=== PATIENT | male | born 1950 | race Caucasian/White ===

== ENCOUNTER 2021-03-24 15:39 | Outpatient (CLI) | payer BC, OTHER | END 2021-03-24 23:59 | disposition home or self-care (01) | LOC: LAB.N 15:39 | PROVIDERS: ATTEND Family Medicine | DX: N41.9 Inflammatory disease of prostate, unspecified (principal) | CPT/HCPCS: 87086 ==

== ENCOUNTER 2021-05-02 08:52 | Inpatient (IN) | payer BC, OTHER, MEDICARE ==
[2021-05-02] MEDS ORDERED: LACTATED RINGERS 1,000 ML IV ONE (08:55)
[2021-05-02] MEDS ORDERED: fentaNYL 250 MCG/5 ML VIAL ONE (09:25)
[2021-05-02] MEDS ORDERED: MIDAZOLAM 2 MG/2 ML VIAL ONE ×3 (09:25→09:52)
[2021-05-02] MEDS ORDERED: LIDO GARGLE 30 ML BOTTLE ONE (09:34)
[2021-05-02] MEDS ORDERED: LIDO GARGLE 30 ML BOTTLE PO ONE (09:49)
[2021-05-02] MEDS ORDERED: BENZOCAINE/TETRACAINE/BUTAMBEN 20 GM TOP ONE (09:50)
[2021-05-02] MEDS ORDERED: PROPOFOL 200 MG/20 ML VIAL IVP ONE (09:53)
--- NOTE | 2021-05-02 10:02 | ANESTHESIA ---
Pre-Anesthesia VS, & Labs - Diagnosis high risk screening exam, history of GI bleed - Procedure colonoscopy and EGD Vital Signs: Temp Pulse Resp BP Pulse Ox 35.6 C L 72 14 134/89 H 99 05/02/21 08:58 05/02/21 08:58 05/02/21 08:58 05/02/21 08:58 05/02/21 08:58 Height: 5 ft 8 in Weight (kg): 87.9 kg Body Mass Index: 29.5 BMI Classification: Overweight - NPO >8 hours Home Medications and Allergies Home Medications: Ambulatory Orders Ciprofloxacin HCl [Cipro] 500 mg PO BID PRN 05/01/21 Tamsulosin HCl [Flomax] 0.4 mg PO DAILY 05/01/21 Ciprofloxacin HCl [Cipro] 500 mg PO BID PRN 05/01/21 Tamsulosin HCl [Flomax] 0.4 mg PO DAILY 05/01/21 Allergies/Adverse Reactions: Allergies Allergy/AdvReac Type Severity Reaction Status Date / Time No Known Drug Allergies Allergy Verified 05/01/21 13:30 Anes History & Medical History - Anesthetic History Anesthesia Complications: reports: No previous complications - Medical History Cardiovascular: reports: None Pulmonary: reports: None Gastrointestinal: reports: GI bleed Urinary: reports: Benign prostate hypertrophy, Kidney stones, Other Musculoskeletal: reports: Osteoarthritis Endocrine/Autoimmune: reports: None Skin: reports: None - Surgical History General: reports: Cholecystectomy Urologic: reports: Kidney stents Dermatologic: reports: Skin cancer surgery Exam General: Other (sedated) Plan Anesthesia Type: Total IV (rescue sedation. History obtained from chart.) Consent for Procedure(s) Verified and Reviewed: Yes Code Status: Attempt Resuscitation ASA classification: 2-Mild systemic disease Is this case an emergency?: No
[2021-05-02] MEDS ORDERED: LACTATED RINGERS 600 ML IV ONE (10:23)
[2021-05-02] MEDS ORDERED: SODIUM CHLORIDE FLUSH 0.9% 10 ML SYRINGE IVP PRN (11:30)
[2021-05-02] MEDS ORDERED: ONDANSETRON 4 MG/2 ML VIAL IVP PRN (11:30)
--- NOTE | 2021-05-02 11:45 | HISTORY & PHYSICAL EXAMINATION ---
History and Physical - History and Physical Subjective 70-year-old male presenting for colonoscopy and upper endoscopy for work-up of hematochezia. Notable change in bowel movements as well. Significant family history for colorectal cancer in his father. Findings during colonoscopy are as below: 1. Exceedingly poor prep that progressively worsened proximal to the obstructing descending colonic mass 2. Obstructing mass noted at the distal descending colon junction with the sigmoid. Extensive diverticulosis. This mass was circumferential and essentially obstructing. Traversed only after transition from moderate sedation to monitored anesthesia care and careful cautious navigation. The proximal colon was necessary cleared secondary to need for possible resection versus diversion. 3. Ileocecal valve achieved as evidenced by the appendiceal orifice and ICV; both photographed. 4. Cecum without cecitis. The entirety of the colon was without colitis. 5. Careful evaluation and ultimate withdrawal noted for the following: A. Exceedingly large circumferential bulky mass at the distal descending colonic junction with the sigmoid. This mass was multiply biopsied biopsy by cold forceps. Retrieved. This was clearly a malignancy which was clinically obstructing. Proximal bowel prep was poor. This area was approximately tattooed upstream from an area of extensive diverticulosis. Distal tattoo was appropriately beyond mass to assure oncologic margin. 6. Tortuous colon. 7. Rectum without proctitis. 8. Internal hemorrhoids nonbleeding Upper endoscopy was unremarkable. Secondary to obstruction the patient was admitted to the hospital for staging work-up, bowel rest, and hospitalist consultation. Please see preoperative history and physical for the endoscopic procedures. Patient notable for recent history of ureterolithiasis/nephrolithiasis on Flomax and Cipro. Objective Afebrile hemodynamically acceptable General Appearance: positive: No acute distress Eyes Bilateral: positive: Normal inspection ENT: positive: ENT inspection nml Neck: positive: Nml inspection Respiratory: positive: Chest non-tender, No respiratory distress, Breath sounds nml. negative: Wheezes, Rales, Rhonchi Cardiovascular: positive: Regular rate & rhythm Abdomen: positive: No distention, Other. negative: Guarding, Rebound Extremities: positive: Non-tender, Full ROM, Nml appearance Neurologic/Psychiatric: positive: Oriented x3, CN's nml (2-12) Impression/Plan 70-year-old male with obstructing colon mass distal descending at sigmoid junction. Pending staging work-up. Hospitalist consulted. Will need either diverting loop colostomy versus definitive resection pending evaluation for metastases. CBC, CMP, coagulation indices ordered, CEA. CT chest abdomen pelvis with p.o. and IV contrast also ordered. Discussed briefly with family current plan and will discuss at greater length following imaging and laboratory results. (1) GI - IVF, bowel rest. GI ppx. Opiate sparring analgesia. (2) SURGERY - Discuss surgical options once imaging complete and patient evaluated by hospital service. We will discuss the possibility of performing intervention here versus transfer. If there is evidence of metastatic disease the patient is candidate for diverting loop colostomy and placement of Mediport in anticipation of palliative chemotherapy. Absent metastases patient can undergo low anterior resection versus anterior resection laparoscopically for definitive intervention. (3) Renal/Lytes - Continue Flomax (4) Respiratory - O2 as necessary. Continue IS. (5) Heme - Will continue with DVT ppx. (6) Cardiovascular - HD acceptable. Awaiting hospitalist preoperative assessment and risk stratification.
[2021-05-02] MEDS ORDERED: IOVERSOL 320 50 ML VIAL ONE (11:46)
[2021-05-02 12:09] LABS: BASOPHILS % (AUTO) 0.6 %; EOSINOPHILS # (AUTO) 0.1 10^3/uL (0.0-0.7); EOSINOPHILS % (AUTO) 1.1 %; HGB - HEMOGLOBIN 12.6 g/dL (14.0-18.0); LYMPHOCYTES # (AUTO) 0.6 10^3/uL (1.5-3.5); LYMPHOCYTES % (AUTO) 10.5 %; MEAN CORPUSCULAR HEMOGLOBIN 30.1 pg (27.0-31.0); MEAN CORPUSCULAR HGB CONC 33.2 g/dL (32.0-36.0); MEAN CORPUSCULAR VOLUME 90.7 fL (80.0-94.0); MEAN PLATELET VOLUME 10.6 fL (7.4-11.4); MONOCYTES # (AUTO) 0.2 10^3/uL (0.0-1.0); MONOCYTES % (AUTO) 3.4 %; NEUTROPHILS # (AUTO) 4.5 10^3/uL (1.5-6.6); NEUTROPHILS % (AUTO) 83.8 %; PLT - PLATELET COUNT 132 10^3/uL (130-450); RED BLOOD COUNT 4.19 10^6/uL (4.70-6.10); RED CELL DISTRIBUTION WIDTH 12.6 % (12.0-15.0); WHITE BLOOD COUNT 5.3 x10^3/uL (4.8-10.8)
--- NOTE | 2021-05-02 12:13 | ANESTHESIA POST OP EVALUATION ---
Anesthesia Post Eval - Post Anesthesia Eval Vitals: Last Vital Signs Temp 36.4 C L 05/02/21 11:12 Pulse 78 05/02/21 11:43 Resp 20 05/02/21 11:43 BP 111/65 05/02/21 11:43 Pulse Ox 99 05/02/21 11:43 CV Function Including HR & BP: Stable Pain Control: Satisfactory Nausea & Vomiting: Negative Mental Status: Baseline Respiratory Status: Airway Patent Hydration Status: Satisfactory Anesthesia Complications: None
[2021-05-02 12:17] LABS: ALBUMIN 4.2 g/dL (3.2-5.5); ALBUMIN/GLOBULIN RATIO 1.6 (1.0-2.2); BILIRUBIN,TOTAL 0.9 mg/dL (0.2-1.0); CALCIUM 8.8 mg/dL (8.5-10.3); CREATININE 0.9 mg/dL (0.6-1.2); MAGNESIUM 2.1 mg/dL (1.7-2.8); PHOSPHORUS 3.5 mg/dL (2.5-4.6); POTASSIUM 4.1 mmol/L (3.5-5.0); TOTAL PROTEIN 6.8 g/dL (6.7-8.2)
[2021-05-02] MEDS ORDERED: IOVERSOL 320 100 ML VIAL IVP ONE ×2 (12:45→16:53)
[2021-05-02] MEDS: D5NS W/20 MEQ KCL 1,000 ML IV SCH ×2 (13:05→22:55)
[2021-05-02] MEDS: METOCLOPRAMIDE 10 MG/2 ML VIAL IVP SCH ×3 (13:05→23:53)
[2021-05-02] MEDS: TAMSULOSIN 0.4 MG CAPSULE PO SCH (13:52)
[2021-05-02] MEDS: methocarbamoL 500 MG TABLET PO SCH ×3 (13:52→23:54)
--- NOTE | 2021-05-02 14:07 | CT Report ---
PROCEDURE: CHEST W INDICATIONS: staging workup colonic obstructing mass CONTRAST: IV CONTRAST: Optiray 320 ml: 100 PO CONTRAST: Optiray 320 ml50 TECHNIQUE: After the administration of intravenous contrast, images were acquired from the pulmonary apices to t he posterior costophrenic angles. Multiplanar MIP reformats were acquired. For radiation dose reduc tion, the following was used: automated exposure control, adjustment of mA and/or kV according to pa tient size. COMPARISON: None. FINDINGS: Image quality: Excellent. Lungs and pleura: A 9 x 7 mm solid subpleural nodule is seen at the left lung base (238/3). A 4 mm in trafissural nodule is seen in the right minor fissure measuring 4 mm (194/3), most likely a benign ly mph node. No acute air space opacities. No pleural effusions or pneumothorax. Central and periphera l airways are patent and normal in caliber. Mediastinum: Heart size is normal. No pericardial effusion. Mild to moderate coronary artery ather osclerotic calcifications. No mediastinal or hilar adenopathy by size criteria. Thoracic aorta and c entral pulmonary arteries are normal in size. Esophagus is normal in caliber. No hiatal hernia. Bones and chest wall: No suspicious bony lesions. A densely sclerotic lesion in the posterior aspec t of the left seventh rib is consistent with benign bone island. Degenerative changes are seen at the sternoclavicular joints. No vertebral body compression fractures. No axillary or supraclavicular ad enopathy by size criteria. The thyroid is normal in size and there are no incidental findings.. Abdomen: There is mild splenomegaly. Status post cholecystectomy. A few colonic diverticula are seen . Visualized upper abdominal solid organs otherwise appear normal. Upper abdominal bowel loops are n ormal in caliber. IMPRESSION: 1. Nonspecific 9 x 7 mm subpleural nodule at the left lung base. A benign etiology is favored, but i solated metastatic disease cannot be excluded. Recommend continued attention on follow-up exams. 2. No significant lymphadenopathy in the chest. No suspicious osseous lesion. Reviewed by: Puma Austin MD on 05/02/2021 1:06 PM [facility] Approved by: Puma Austin MD on 05/02/2021 1:06 PM [facility] Station ID: [id number]
--- NOTE | 2021-05-02 14:08 | CT Report ---
PROCEDURE: Abdomen/Pelvis W INDICATIONS: staging workup obstructing colon mass CONTRAST: IV CONTRAST: Optiray 320 ml: 100 PO CONTRAST: Optiray 320 ml50 TECHNIQUE: After the administration of oral and intravenous contrast, 5 mm thick sections acquired from the diap hragms to the symphysis. 5 mm thick coronal and sagittal reformats were acquired. For radiation dos e reduction, the following was used: automated exposure control, adjustment of mA and/or kV accordin g to patient size. COMPARISON: None. FINDINGS: Image quality: Excellent. ABDOMEN: Lung bases: There is mild dependent atelectasis in the lung bases. A 9 x 7 mm subpleural nodule is no jimmy at the left lung base. Please see separate report from the CT chest performed on the same day for detailed review of intrathoracic findings. Heart size is normal. Solid organs: Liver is normal in size and enhancement. Gallbladder is surgically absent. Biliary s ystem is non dilated. Pancreas enhances normally. The spleen is mildly enlarged, measuring up to 14 .5 cm in maximum dimension. No adrenal nodules. Kidneys demonstrate normal size and enhancement, wit hout hydronephrosis. A nonobstructing 3 mm calculus is noted in the proximal right ureter. Tiny nono bstructing calculi are seen in the inferior pole of both kidneys. Peritoneum and bowel: Irregular thickening of the sigmoid colon is seen in the left lower quadrant wi th an ill-defined intramural masslike lesion measuring roughly 4.6 x 4.1 x 5.3 cm. Multiple diverticu la are seen in the colon without signs of acute diverticulitis. There are no signs of bowel obstructi on. No definite bowel perforation or invasion of adjacent structures is seen. There is trace thickeni ng or fluid along the left paracolic gutter, but no significant ascites or pneumoperitoneum. Nodes and vessels: No retroperitoneal or mesenteric adenopathy by size criteria. Aorta and inferior vena cava are normal in size. Mild to moderate atherosclerotic calcifications are seen in the aorta . Miscellaneous: Small fat-containing periumbilical hernia.. PELVIS: Genitourinary: Bladder wall thickness is normal. Miscellaneous: A right inguinal hernia contains fat, trace fluid, and a portion of the anterior bladd er. Bones: No suspicious bony lesions. No vertebral body compression fractures. IMPRESSION: 1. Masslike thickening of the sigmoid colon in the left quadrant is consistent with the known coloni c mass. Extensive colonic diverticulosis is present without signs of acute diverticulitis. 2. No significantly enlarged lymph nodes in the abdomen or pelvis. 3. Mild splenomegaly. 4. Nonspecific subpleural nodule in the left lung base. 5. Nonobstructing 3 mm calculus in the right proximal ureter without hydronephrosis. Additional tiny bilateral nonobstructing renal calculi are present. 6. Right inguinal hernia contains fat and a portion of the anterior bladder. Reviewed by: Puma Autsin MD on 05/02/2021 1:07 PM [facility] Approved by: Puma Austin MD on 05/02/2021 1:07 PM [facility] Station ID: [id number]
[2021-05-02] MEDS ORDERED: IOVERSOL 320 50 ML VIAL PO ONE (16:54)
--- NOTE | 2021-05-02 18:00 | CONSULTATION NOTE ---
Referring Provider Name of Referring Provider:: Roxie Consult Date: 05/02/21 Chief Complaint - Chief Complaint Chief Complaint: Preoperative evaluation History of Present Illness - Admitted From Admitted From:: Home - History Obtained From Records Reviewed: [employer] History obtained from: Patient and chart Exam Limitations: none - History of Present Illness HPI Comment/Other: Mr. Tavares presented today for colonoscopy and upper endoscopy for evaluation of hematochezia and changes to his bowel movements over the last 3 months. He was admitted for staging work of a colonic mass, bowel rest, parenteral nutrition, and hospitalist consult for preoperative risk assessment. He states his last colonoscopy was in 2006 and was normal. At baseline, he reports having one bowel movement every morning without straining or bleeding. Since February, he has been having 3-4x/day of hematochezia that he reports happens over the toilet during the passage of what he feels is gas. He describes passing "a shot-size glass full of what looks like ground Maraschino cherries" into the toilet. He notified his PCP provider about this and requested to schedule a colonoscopy in February, but due to COVID-related backlogs, was unable to schedule anything until Mona garcia (now). He denies any associated abdominal pain or pain of any kind, but states that he has been eating "less" and has unintentionally lost at least 10lbs in the last week. He does endorse a history of kidney stones and prostatitis, and in March saw his PCP after feeling symptoms of both of these coming on. He was subsequently started on Ciprofloxacin. He has a strainer at home and on 04/13/21 s tates he passed a 2mm stone. He has since been symptom-free aside from the hematochezia and weight loss. He denies fevers, chills, nausea, vomiting, fatigue, chest pain, dyspnea, or palpitations. Today we discussed HPI, medical history, questions/concerns, and preoperative risk assessment using the ACS NSQIP risk calculator. 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) MRSA Hx?: No - Past Surgical History General: reports: Cholecystectomy Ortho: reports: Arthroscopic surgery (right knee due to L&I, R menisectomy), Other (forearm fx as child) Derm: reports: Skin cancer surgery - Family & Social History Family History: Mother: (Mom age 78; dad age 69), COPD/Emphysema, Fat her: , Cancer (colorectal cancer, age 69), Brother: Diabetes, Type 2, Obesity Living arrangement: At home Living Situation: With spouse/s.o., With family (disabled son) Social History Notes: Full EMS worker - Substance History Use: Uses substance without health or social issues: Alcohol (once a month) Abuse: Recurrent use of substance despite neg consequences: NONE Dependence: Experiences withdrawal or developed tolerances: NONE Tobacco Details: Other (never smoked) - POLST Patient has POLST: No POLST Status: Full Code Meds/Allgy - Home Medications Home Medications: Ambulatory Orders Medication Instructions Recorded Confirmed Ciprofloxacin HCl [Cipro] 500 mg PO BID PRN 05/01/21 05/01/21 Tamsulosin HCl [Flomax] 0.4 mg PO DAILY 05/01/21 05/01/21 - Allergies Allergies/Adverse Reactions: Allergies Allergy/AdvReac Type Severity Reaction Status Date / Time No Known Drug Allergies Allergy Verified 05/01/21 13:30 Review of Systems - Constitutional Constitutional: reports: Poor appetite, Weight loss - Eyes Eyes: denies: Pain, Irritation, Amaurosis, Blurred vision - Ears, Nose & Throat Ears, Nose & Throat: reports: Ear pain (at times), Nasal obstruction, Nasal congestion, Postnasal drainage. denies: Tinnitus, Vertigo - Cardiovascular Cariovascular: denies: Irregular heart rate, Palpitations, Chest pain, Edema, Lightheadedness - Respiratory Respiratory: denies: Cough, Sputum production, Wheezing, Snoring - Gastrointestinal Gastrointestinal: reports: Change in bowel habits, Rectal bleeding, Poor appetite - Genitourinary Genitourinary: reports: Frequency (sometimes), Nocturia (sometimes). denies: Dysuria - Musculoskeletal Musculoskeletal: reports: Joint pain. denies: Muscle pain, Back pain, Muscle aches - Integumentary Integumentary: denies: Rash, Pruritis, Lesions, Dryness - Neurological Neurological: denies: General weakness, Focal weakness, Headache, Dizziness, Me quincy problems, Pre-existing deficit - Psychiatric Psychiatric: denies: Depression, Anxiety, Suicidal, Hallucinations - Endocrine Endocrine: denies: Polyuria, Polydypsia, Polyphagia - Hematologic/Lymphatic Hematologic/Lymphatic: denies: Anemia, Bruising, Petechiae Exam - Vital Signs Vital Signs: Vital Signs x48h Temp Pulse Resp BP Pulse Ox 05/02/21 16:28 88 16 131/84 H 97 05/02/21 15:28 36.5 C 82 16 126/66 95 05/02/21 14:28 36.3 C L 86 18 124/70 97 05/02/21 13:15 36.5 C 72 20 141/73 H 96 05/02/21 13:00 73 18 128/80 100 05/02/21 12:44 36.4 C L 64 18 128/74 98 05/02/21 12:29 36.4 C L 74 20 137/73 H 99 05/02/21 11:43 78 20 111/65 99 05/02/21 11:30 76 16 108/69 100 05/02/21 11:12 36.4 C L 75 12 107/73 99 05/02/21 11:01 72 18 97/56 L 100 05/02/21 10:52 73 18 113/65 98 05/02/21 10:46 73 14 109/64 99 05/02/21 10:41 36.8 C 66 12 103/64 96 05/02/21 10:36 67 12 101/59 L 96 05/02/21 10:31 67 12 93/57 L 96 05/02/21 10:26 70 12 93/56 L 96 05/02/21 10:23 36.8 C 69 16 100/52 L 96 - Physical Exam General Appearance: positive: No acute distress, Alert Eyes Bilateral: positive: Normal inspection, PERRL ENT: positive: ENT inspection nml, Pharynx nml, No signs of dehydration Neck: positive: Nml inspection, Thyroid nml, No JVD, Trachea midline Respiratory: positive: Chest non-tender, No respiratory distress, Breath sounds nml Cardiovascular: positive: Regular rate & rhythm, No murmur, No gallop Peripheral Pulses: positive: 2+ Abdomen: positive: Non-tender, No organomegaly, Nml bowel sounds Back: positive: Nml inspection Skin: positive: Color nml, No rash, Warm, Dry Extremities: positive: Non-tender, Full ROM, Nml appearance Neurologic/Psychiatric: positive: Oriented x3, Mood/affect nml Conclusion/Plan - Diagnosis Diagnosis: colon neoplasm, uncertain behavior, with a preoperative evaluation - Plan Plan: Mr. Tavares has a NSQIP preoperative assessment with a calculated risk score of 10.9% risk of serious complications and 14.5% risk of any complications. These are below average risks. For anesthesia, the patient does not have HTN, diabetes, COPD, valvular heart disease, or history of MO. We will continue to follow for any medical problems that erupt. Management of this general admission is by surgery, and we do not have any risk-modifying treatment to add at this time. - Lab Results Lab results reviewed: Yes Fish Bones: 05/02/21 11:47 05/02/21 11:47 - Diagnostic Imaging Results Diagnostic Imaging Results: positive: Final report reviewed - EKG Results EKG Interpreted Independently: No EKG Comparison: Other (tele with NSR)
[2021-05-02] MEDS: SODIUM CHLORIDE FLUSH 0.9% 10 ML SYRINGE IVP SCH ×2 (18:14→23:54)
[2021-05-03 05:00] LABS: BASOPHILS % (AUTO) 0.6 %; EOSINOPHILS # (AUTO) 0.1 10^3/uL (0.0-0.7); EOSINOPHILS % (AUTO) 3.2 %; HCT - HEMATOCRIT 35.7 % (42.0-52.0); HGB - HEMOGLOBIN 11.6 g/dL (14.0-18.0); LYMPHOCYTES # (AUTO) 0.8 10^3/uL (1.5-3.5); LYMPHOCYTES % (AUTO) 24.9 %; MEAN CORPUSCULAR HEMOGLOBIN 30.1 pg (27.0-31.0); MEAN CORPUSCULAR HGB CONC 32.5 g/dL (32.0-36.0); MEAN CORPUSCULAR VOLUME 92.7 fL (80.0-94.0); MEAN PLATELET VOLUME 10.5 fL (7.4-11.4); MONOCYTES # (AUTO) 0.2 10^3/uL (0.0-1.0); MONOCYTES % (AUTO) 6.9 %; NEUTROPHILS % (AUTO) 64.1 %; PLT - PLATELET COUNT 113 10^3/uL (130-450); RED BLOOD COUNT 3.85 10^6/uL (4.70-6.10); RED CELL DISTRIBUTION WIDTH 12.9 % (12.0-15.0); WHITE BLOOD COUNT 3.2 x10^3/uL (4.8-10.8)
[2021-05-03 05:13] LABS: ALBUMIN 3.5 g/dL (3.2-5.5); ALBUMIN/GLOBULIN RATIO 1.5 (1.0-2.2); CALCIUM 8.2 mg/dL (8.5-10.3); CREATININE 0.8 mg/dL (0.6-1.2); MAGNESIUM 2.2 mg/dL (1.7-2.8); PHOSPHORUS 3.3 mg/dL (2.5-4.6); TOTAL PROTEIN 5.8 g/dL (6.7-8.2)
[2021-05-03] MEDS: methocarbamoL 500 MG TABLET PO SCH ×4 (06:47→23:40)
[2021-05-03] MEDS: METOCLOPRAMIDE 10 MG/2 ML VIAL IVP SCH ×4 (07:42→23:40)
[2021-05-03] MEDS: PANTOPRAZOLE 40 MG VIAL IVP SCH (07:43)
[2021-05-03] MEDS: D5NS W/20 MEQ KCL 1,000 ML IV SCH ×3 (08:51→18:00)
[2021-05-03] MEDS: ENOXAPARIN 40 MG/0.4 ML SYRINGE SUBQ SCH (08:53)
[2021-05-03] MEDS: SODIUM CHLORIDE FLUSH 0.9% 10 ML SYRINGE IVP SCH ×3 (08:54→23:35)
[2021-05-03] MEDS: TAMSULOSIN 0.4 MG CAPSULE PO SCH (08:54)
--- NOTE | 2021-05-03 09:16 | PHARMACY PROGRESS NOTE ---
- Best Possible Medication History Admit Date and Time: 05/02/21 1130 Processed by: Nursing Medication History completed: Yes Patient Interview: Completed (MED REC COMPLETED BY NURSING) As the person ultimately responsible for medication therapy, providers are able to order a medication from an existing home medication list in [facility] via the "Reconcile Routine" prior to Confirmation of that medication by medical support specialist. Such practice is discouraged except when the physician, in their clinical judgment, deems that a medical need exists for a medication without regard to previous use.
[2021-05-04] MEDS: D5NS W/20 MEQ KCL 1,000 ML IV SCH ×3 (03:08→20:20)
[2021-05-04 05:37] LABS: BASOPHILS % (AUTO) 0.7 %; HCT - HEMATOCRIT 37.5 % (42.0-52.0); HGB - HEMOGLOBIN 12.1 g/dL (14.0-18.0); LYMPHOCYTES % (AUTO) 29.6 %; MEAN CORPUSCULAR HEMOGLOBIN 29.8 pg (27.0-31.0); MEAN CORPUSCULAR HGB CONC 32.3 g/dL (32.0-36.0); MEAN CORPUSCULAR VOLUME 92.4 fL (80.0-94.0); MEAN PLATELET VOLUME 10.9 fL (7.4-11.4); MONOCYTES % (AUTO) 7.3 %; PLT - PLATELET COUNT 119 10^3/uL (130-450); RED BLOOD COUNT 4.06 10^6/uL (4.70-6.10); RED CELL DISTRIBUTION WIDTH 12.8 % (12.0-15.0); WHITE BLOOD COUNT 2.7 x10^3/uL (4.8-10.8)
[2021-05-04 05:41] LABS: ABNORMAL LYMPHS % (MANUAL) 0 %
[2021-05-04 05:44] LABS: ALBUMIN 3.6 g/dL (3.2-5.5); ALBUMIN/GLOBULIN RATIO 1.4 (1.0-2.2); BILIRUBIN,TOTAL 0.8 mg/dL (0.2-1.0); CALCIUM 8.4 mg/dL (8.5-10.3); CREATININE 0.8 mg/dL (0.6-1.2); MAGNESIUM 2.1 mg/dL (1.7-2.8); PHOSPHORUS 2.8 mg/dL (2.5-4.6); POTASSIUM 3.7 mmol/L (3.5-5.0); TOTAL PROTEIN 6.1 g/dL (6.7-8.2)
[2021-05-04 06:03] LABS: BAND NEUTROPHILS % (MANUAL) 4 %; DIFFERENTIAL COMMENT MANUAL DIFFERENTIAL; EOSINOPHILS # (MANUAL) 0.2 10^3/uL (0-0.7); LYMPHOCYTES # (MANUAL) 0.7 10^3/uL (1.5-3.5); LYMPHOCYTES % (MANUAL) 25 %; MONOCYTES # (MANUAL) 0.1 10^3/uL (0.0-1.0); NEUTROPHILS # (MANUAL) 1.7 10^3/uL (1.5-6.6); PLATELET ESTIMATE, MANUAL DECREASED (<130,000) (NORMAL); RBC MORPHOLOGY (MULTIPLE) NORMAL APPEARANCE (NORMAL)
[2021-05-04] MEDS: PANTOPRAZOLE 40 MG VIAL IVP SCH (06:22)
[2021-05-04] MEDS: METOCLOPRAMIDE 10 MG/2 ML VIAL IVP SCH ×3 (06:22→17:35)
[2021-05-04] MEDS: methocarbamoL 500 MG TABLET PO SCH ×3 (06:23→17:35)
[2021-05-04] MEDS: SODIUM CHLORIDE FLUSH 0.9% 10 ML SYRINGE IVP SCH ×2 (08:52→17:36)
[2021-05-04] MEDS: ENOXAPARIN 40 MG/0.4 ML SYRINGE SUBQ SCH (08:52)
[2021-05-04] MEDS: TAMSULOSIN 0.4 MG CAPSULE PO SCH (08:54)
--- NOTE | 2021-05-04 17:34 | XRAY Report ---
PROCEDURE: Chest for Line Placement INDICATIONS: new PICC @R basilic v, likely midline TECHNIQUE: One view of the chest was acquired. COMPARISON: None FINDINGS: Surgical changes and devices: Right-sided presumed PICC line is present. It is visualized to the medi al aspect of the axilla overlying the lateral right lung. Lungs and pleura: No pleural effusions or pneumothorax. Lungs are clear. Mediastinum: Mediastinal contours appear normal. Heart size is normal. Bones and chest wall: No suspicious bony lesions. Overlying soft tissues appear unremarkable. IMPRESSION: Presumed right-sided PICC line located as above. Recommend forward advancement of at least 12 cm.. Reviewed by: Virginia Moreno MD on 05/04/2021 5:33 PM PDT Approved by: Virginia Moreno MD on 05/04/2021 5:33 PM PDT Station ID: [id number]
--- NOTE | 2021-05-04 17:48 | ANESTHESIA PROCEDURE NOTE ---
Anesth Central Line Template - Central Line Central Line Preparation: Consent Obtained, Time out completed, Ultrasound used, Sterile prep and drape Central line location: Right Basilic Central line type: PICC Double Lumen Central line catheter tip site resides: Subclavian vein Central line aftercare: Secured, Placement confirmed, No pneumothorax, No complications (unable to advance past subclavian v despite multiple attempts) Other Info/Details: US used to access R basilic v. Wire threaded easily. Dilator with ease. Cath cut to 40cm per chart. Catheter threaded easily using tip tracker, but unable to advance past subclavian v. despite multiple attempts. Catheter appeared to be turning back on itself at 32cm. Catheter also stopped aspirated and flushing if advanced past 32. Cath retracted to 32cm (8cm exposed) and secured. Insertion site with oozing unresolved with pressure. New dressing applied and coban to slight pressure. MD Faustin notified of midline status.
[2021-05-05] MEDS: METOCLOPRAMIDE 10 MG/2 ML VIAL IVP SCH ×5 (00:30→18:32)
[2021-05-05] MEDS: SODIUM CHLORIDE FLUSH 0.9% 10 ML SYRINGE IVP SCH ×4 (00:30→18:31)
[2021-05-05] MEDS: methocarbamoL 500 MG TABLET PO SCH ×5 (00:30→18:34)
[2021-05-05] MEDS: D5NS W/20 MEQ KCL 1,000 ML IV SCH ×2 (04:04→18:19)
--- NOTE | 2021-05-05 05:13 | PROVIDER PROGRESS NOTE ---
Progress Note Subjective 70-year-old male hospital day #3 Status Post colonoscopy and upper endoscopy for work-up of hematochezia. Notable change in bowel movements as well. Significant family history for colorectal cancer in his father. Findings during colonoscopy are as below: 1. Exceedingly poor prep that progressively worsened proximal to the obstructing descending colonic mass 2. Obstructing mass noted at the distal descending colon junction with the sigmoid. Extensive diverticulosis. This mass was circumferential and essentially obstructing. Traversed only after transition from moderate sedation to monitored anesthesia care and careful cautious navigation. The proximal colon was necessary cleared secondary to need for possible resection versus diversion. 3. Ileocecal valve achieved as evidenced by the appendiceal orifice and ICV; both photographed. 4. Cecum without cecitis. The entirety of the colon was without colitis. 5. Careful evaluation and ultimate withdrawal noted for the following: A. Exceedingly large circumferential bulky mass at the distal descending colonic junction with the sigmoid. This mass was multiply biopsied biopsy by cold forceps. Retrieved. This was clearly a malignancy which was clinically obstructing. Proximal bowel prep was poor. This area was approximately tattooed upstream from an area of extensive diverticulosis. Distal tattoo was appropriately beyond mass to assure oncologic margin. 6. Tortuous colon. 7. Rectum without proctitis. 8. Internal hemorrhoids nonbleeding CT abdomen pelvis and CT chest without any evidence of metastatic disease. Pending PICC line. Hospitalist consult appreciated. Objective Afebrile hemodynamically acceptable General Appearance: positive: No acute distress Eyes Bilateral: positive: Normal inspection ENT: positive: ENT inspection nml Neck: positive: Nml inspection Respiratory: positive: Chest non-tender, No respiratory distress, Breath sounds nml. negative: Wheezes, Rales, Rhonchi Cardiovascular: positive: Regular rate & rhythm Abdomen: positive: No distention, Other. negative: Guarding, Rebound Extremities: positive: Non-tender, Full ROM, Nml appearance Neurologic/Psychiatric: positive: Oriented x3, CN's nml (2-12) Impression/Plan 70-year-old male with obstructing colon cancer left, tattooed. No evidence of extracolonic metastases by CT chest abdomen pelvis. Unable to tolerate oral intake. Seen by hospitalist. Pending PICC line for TPN. Advised absent metastases patient candidate for low anterior resection. Possibility for temporary diverting stoma. (1) GI - IVF, bowel regimen, bowel rest; NPO p midnight. GI ppx. Opiate sparring analgesia. (2) SURGERY: 1. Diagnostic laparoscopy 2. Laparoscopic adhesiolysis 3. Laparoscopic low anterior resection 4. Laparoscopic splenic flexure mobilization 5. Rigid proctoscopy 6. Possible Laparoscopic loop ileostomy 7. Tap block per anesthesia 8. Drain placement 9. Primary umbilical hernia repair (3) Renal/Lytes - continue IVF. Renal indices within normal limits. (4) Respiratory - O2 as necessary. Continue IS. (5) Heme - Will continue with DVT ppx. H/H stable. (6) Cardiovascular - HD acceptable. (7) Neuro - Opiate sparring analgesia. Antispasmodics with Robaxin. Neuropathic agents. (8) Immune/Infectious Disease - Perioperative antibiotics. Appreciate hospitalist consult. Please note that voice recognition software was used to transcribe this note and inadvertent errors might persist in spite of review and editing. I am obliged to you for your attention. I am thankful to you for allowing me to participate with you in this care of this patient.
[2021-05-05] MEDS: PANTOPRAZOLE 40 MG VIAL IVP SCH (06:39)
[2021-05-05 07:08] LABS: BASOPHILS % (AUTO) 0.8 %; HCT - HEMATOCRIT 35.6 % (42.0-52.0); HGB - HEMOGLOBIN 11.5 g/dL (14.0-18.0); MEAN CORPUSCULAR HEMOGLOBIN 29.7 pg (27.0-31.0); MEAN CORPUSCULAR HGB CONC 32.3 g/dL (32.0-36.0); MEAN PLATELET VOLUME 10.4 fL (7.4-11.4); MONOCYTES % (AUTO) 5.3 %; NEUTROPHILS % (AUTO) 64.5 %; PLT - PLATELET COUNT 117 10^3/uL (130-450); RED BLOOD COUNT 3.87 10^6/uL (4.70-6.10); RED CELL DISTRIBUTION WIDTH 12.8 % (12.0-15.0); WHITE BLOOD COUNT 2.7 x10^3/uL (4.8-10.8)
[2021-05-05 07:11] LABS: ABNORMAL LYMPHS % (MANUAL) 0 %
[2021-05-05 07:16] LABS: ALBUMIN 3.7 g/dL (3.2-5.5); ALBUMIN/GLOBULIN RATIO 1.8 (1.0-2.2); BILIRUBIN,TOTAL 0.6 mg/dL (0.2-1.0); CALCIUM 8.7 mg/dL (8.5-10.3); CREATININE 0.8 mg/dL (0.6-1.2); MAGNESIUM 1.8 mg/dL (1.7-2.8); POTASSIUM 3.9 mmol/L (3.5-5.0); TOTAL PROTEIN 5.8 g/dL (6.7-8.2)
[2021-05-05 07:47] LABS: BAND NEUTROPHILS % (MANUAL) 1 %; EOSINOPHILS # (MANUAL) 0.1 10^3/uL (0-0.7); LYMPHOCYTES # (MANUAL) 0.9 10^3/uL (1.5-3.5); LYMPHOCYTES % (MANUAL) 32 %; MONOCYTES # (MANUAL) 0.1 10^3/uL (0.0-1.0); NEUTROPHILS # (MANUAL) 1.6 10^3/uL (1.5-6.6)
[2021-05-05 07:49] LABS: DIFFERENTIAL COMMENT MANUAL DIFFERENTIAL; PLATELET ESTIMATE, MANUAL DECREASED (<130,000) (NORMAL); PLATELET MORPHOLOGY NORMAL APPEARANCE (NORMAL); RBC MORPHOLOGY (MULTIPLE) NORMAL APPEARANCE (NORMAL); WBC MORPHOLOGY (MULTIPLE) NORMAL APPEARANCE (NORMAL)
[2021-05-05] MEDS: TAMSULOSIN 0.4 MG CAPSULE PO SCH (08:04)
--- NOTE | 2021-05-05 11:47 | ANESTHESIA ---
Pre-Anesthesia VS, & Labs - Diagnosis Diagnosis colon neoplasm, uncertain behavior, with a preoperative evaluation - Procedure Low Anterior Colon Resection Vital Signs: Temp Pulse Resp BP Pulse Ox 36.7 C 56 L 16 133/78 H 96 05/05/21 07:16 05/05/21 07:16 05/05/21 07:16 05/05/21 07:16 05/05/21 07:16 Height: 5 ft 8 in Weight (kg): 87.9 kg Body Mass Index: 29.5 BMI Classification: Overweight - NPO >8 hours - Lab Results Current Lab Results: Laboratory Tests 05/05/21 06:45: Sodium 141, Potassium 3.9, Chloride 109, Carbon Dioxide 25, Anion Gap 7.0, BUN 5 L, Creatinine 0.8, Estimated GFR (MDRD) 95, Glucose 109 H, Calcium 8.7, Phosphorus 3.0, Magnesium 1.8, Total Bilirubin 0.6, AST 18, ALT 15, Alkaline Phosphatase 53, Total Protein 5.8 L, Albumin 3.7, Globulin 2.1, Albumin/Globulin Ratio 1.8 05/05/21 06:45: WBC 2.7 L, RBC 3.87 L, Hgb 11.5 L, Hct 35.6 L, MCV 92.0, MCH 29.7, MCHC 32.3, RDW 12.8, Plt Count 117 L, MPV 10.4, Neut # (Auto) Not Reportable, Lymph # (Auto) Not Reportable, Gilchrist # (Auto) Not Reportable, Eos # (Auto) Not Reportable, Baso # (Auto) Not Reportable, Absolute Nucleated RBC Not Reportable, Total Counted 100, Band Neuts % (Manual) 1, Abnorm Lymph % (Manual) 0, Nucleated RBC % Not Reportable, Neutrophils # (Manual) 1.6, Lymphocytes # (Manual) 0.9 L, Monocytes # (Manual) 0.1, Eosinophils # (Manual) 0.1, Basophils # (Manual) 0.0, Differential Comment MANUAL DIFFERENTIAL, WBC Morphology NORMAL APPEARANCE, Platelet Estimate DECREASED (<130,000), Platelet Morphology NORMAL APPEARANCE, RBC Morph Micro Appear NORMAL APPEARANCE 05/04/21 04:55: Sodium 139, Potassium 3.7, Chloride 106, Carbon Dioxide 25, Anion Gap 8.0, BUN 6, Creatinine 0.8, Estimated GFR (MDRD) 95, Glucose 114 H, Calcium 8.4 L, Phosphorus 2.8, Magnesium 2.1, Total Bilirubin 0.8, AST 14, ALT 14, Alkaline Phosphatase 54, Total Protein 6.1 L, Albumin 3.6, Globulin 2.5, Albumin/Globulin Ratio 1.4 05/04/21 04:55: WBC 2.7 L, RBC 4.06 L, Hgb 12.1 L, Hct 37.5 L, MCV 92.4, MCH 29.8, MCHC 32.3, RDW 12.8, Plt Count 119 L, MPV 10.9, Neut # (Auto) Not Reportable, Lymph # (Auto) Not Reportable, Gilchrist # (Auto) Not Reportable, Eos # (Auto) Not Reportable, Baso # (Auto) Not Reportable, Absolute Nucleated RBC Not Reportable, Total Counted 100, Band Neuts % (Manual) 4, Abnorm Lymph % (Manual) 0, Nucleated RBC % Not Reportable, Neutrophils # (Manual) 1.7, Lymphocytes # (Manual) 0.7 L, Monocytes # (Manual) 0.1, Eosinophils # (Manual) 0.2, Basophils # (Manual) 0.0, Differential Comment MANUAL DIFFERENTIAL, Platelet Estimate DECREASED (<130,000), RBC Morph Micro Appear NORMAL APPEARANCE 05/03/21 04:40: Sodium 138, Potassium 4.0, Chloride 104, Carbon Dioxide 27, Anion Gap 7.0, BUN 10, Creatinine 0.8, Estimated GFR (MDRD) 95, Glucose 133 H, Calcium 8.2 L, Phosphorus 3.3, Magnesium 2.2, Total Bilirubin 1.0, AST 14, ALT 14, Alkaline Phosphatase 58, Total Protein 5.8 L, Albumin 3.5, Globulin 2.3, Albumin/Globulin Ratio 1.5 05/03/21 04:40: WBC 3.2 L, RBC 3.85 L, Hgb 11.6 L, Hct 35.7 L, MCV 92.7, MCH 30.1, MCHC 32.5, RDW 12.9, Plt Count 113 L, MPV 10.5, Neut # (Auto) 2.0, Lymph # (Auto) 0.8 L, Gilchrist # (Auto) 0.2, Eos # (Auto) 0.1, Baso # (Auto) 0.0, Absolute Nucleated RBC 0.00, Nucleated RBC % 0.0 05/02/21 11:47: Carcinoembryonic Ag 1.5 05/02/21 11:47: Sodium 137, Potassium 4.1, Chloride 101, Carbon Dioxide 27, Anion Gap 9.0, BUN 15, Creatinine 0.9, Estimated GFR (MDRD) 83 L, Glucose 126 H, Calcium 8.8, Total Bilirubin 0.9, AST 19, ALT 17, Alkaline Phosphatase 66, Total Protein 6.8, Albumin 4.2, Globulin 2.6, Albumin/Globulin Ratio 1.6 05/02/21 11:47: APTT 27.8 05/02/21 11:47: INR (Fingerstick) 1.1 05/02/21 11:47: WBC 5.3, RBC 4.19 L, Hgb 12.6 L, Hct 38.0 L, MCV 90.7, MCH 30.1, MCHC 33.2, RDW 12.6, Plt Count 132, MPV 10.6, Neut # (Auto) 4.5, Lymph # (Auto) 0.6 L, Gilchrist # (Auto) 0.2, Eos # (Auto) 0.1, Baso # (Auto) 0.0, Absolute Nuc leated RBC 0.00, Nucleated RBC % 0.0 05/02/21 11:47: Phosphorus 3.5, Magnesium 2.1 Lab results reviewed: Yes Fish Bones: 05/05/21 06:45 05/05/21 06:45 Home Medications and Allergies Home Medications: Ambulatory Orders Ciprofloxacin HCl [Cipro] 500 mg PO BID PRN 05/01/21 Tamsulosin HCl [Flomax] 0.4 mg PO DAILY 05/01/21 Active Medications Hydromorphone HCl (Hydromorphone 0.5 Mg/0.5 Ml Syringe) 0.5 mg IVP Q2H PRN PRN Reason: Pain 8 to 10 Potassium Chloride/Dextrose/Sod Cl (D5ns W/20 Meq Kcl) 1,000 mls @ 125 mls/hr IV .Q8H [facility] Last Admin: 05/05/21 04:04 Dose: 125 mls/hr Documented by: Methocarbamol (Methocarbamol 500 Mg Tablet) 500 mg PO Q6HR [facility] Last Admin: 05/05/21 06:39 Dose: 500 mg Documented by: Metoclopramide HCl (Metoclopramide 10 Mg/2 Ml Vial) 5 mg IVP Q6HR [facility] Last Admin: 05/05/21 06:39 Dose: 5 mg Documented by: Ondansetron HCl (Ondansetron 4 Mg/2 Ml Vial) 4 mg IVP Q6HR PRN PRN Reason: Nausea / Vomiting Pantoprazole Sodium (Pantoprazole 40 Mg Vial) 40 mg IVP QDAC [facility] Last Admin: 05/05/21 06:39 Dose: 40 mg Documented by: Sodium Chloride (Sodium Chloride Flush 0.9% 10 Ml Syringe) 10 ml IVP 0100,0900,1700 [facility] Last Admin: 05/05/21 08:07 Dose: 10 ml Documented by: Sodium Chloride (Sodium Chloride Flush 0.9% 10 Ml Syringe) 10 ml IVP PRN PRN PRN Reason: NEEDED PER PROVIDER ORDERS Last Admin: 05/05/21 06:40 Dose: 70 ml Documented by: Tamsulosin HCl (Tamsulosin 0.4 Mg Capsule) 0.4 mg PO DAILY [facility] Last Admin: 05/05/21 08:04 Dose: 0.4 mg Documented by: Ciprofloxacin HCl [Cipro] 500 mg PO BID PRN 05/01/21 Tamsulosin HCl [Flomax] 0.4 mg PO DAILY 05/01/21 Allergies/Adverse Reactions: Allergies Allergy/AdvReac Type Severity Reaction Status Date / Time No Known Drug Allergies Allergy Verified 05/01/21 13:30 Anes History & Medical History - Anesthetic History Anesthesia Complications: reports: No previous complications Family history of Anesthesia Complications: Denies Family history of Malignant Hyperthermia: Denies - Medical History Cardiovascular: reports: None Pulmonary: reports: None Gastrointestinal: reports: GI bleed, Diverticulitis (not itis but diverticulosis on scope [address] for stones), Cholelithiasis, Other (inguinal hernia) Urinary: reports: Benign prostate hypertrophy, Kidney stones Neuro: reports: None Musculoskeletal: reports: Osteoarthritis Endocrine/Autoimmune: reports: None Skin: reports: Other (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) - Surgical History General: reports: Cholecystectomy Urologic: reports: Kidney stents Orthopedic: reports: Arthroscopic surgery (right knee due to L&I, R menisectomy), Other (forearm fx as child) Dermatologic: reports: Skin cancer surgery Exam General: Alert, Oriented x3, Cooperative, No acute distress Dental: WNL Mouth Openin Fingerbreadth Neck Mobility: Normal Mallampati classification: I Respiratory: Lungs clear, Normal breath sounds, No respiratory distress, No accessory muscle use Cardiovascular: Regular rate, Normal S1, Normal S2, No murmurs Plan Anesthesia Type: General, Transverse Abdominis Plane (TAP) Block Regional Block: Per Surgeon's request for Post Op pain control Consent for Procedure(s) Verified and Reviewed: Yes Code Status: Attempt Resuscitation ASA classification: 2-Mild systemic disease Is this case an emergency?: No
[2021-05-05] MEDS ORDERED: LIDOCAINE-MPF 2% 5 ML VIAL ONE (12:06)
[2021-05-05] MEDS ORDERED: fentaNYL 100 MCG/2 ML VIAL ONE ×2 (12:06→13:34)
[2021-05-05] MEDS ORDERED: PROPOFOL 200 MG/20 ML VIAL IVP ONE (12:06)
[2021-05-05] MEDS ORDERED: ROCURONIUM 50 MG/5 ML VIAL ONE ×2 (12:06→13:32)
[2021-05-05] MEDS ORDERED: BUPIVACAINE 0.5% PF 30 ML VIAL ONE (12:26)
[2021-05-05] MEDS ORDERED: metroNIDAZOLE 500 MG/100 ML 500 MG/100 ML BAG ONE (13:09)
[2021-05-05] MEDS ORDERED: ACETAMINOPHEN 1,000 MG/100 ML 100 ML IV ONE (13:09)
[2021-05-05] MEDS ORDERED: CIPROFLOXACIN 400 MG/200 ML 400 MG/200 ML BAG IV ONE (13:10)
[2021-05-05] MEDS ORDERED: ePHEDrine 50 MG/ML VIAL IVP ONE (13:17)
[2021-05-05] MEDS ORDERED: DEXAMETHASONE 4 MG/ML VIAL ONE (13:17)
[2021-05-05] MEDS ORDERED: BUPIVACAINE 0.5% PF 30 ML VIAL INFIL ONE (13:19)
[2021-05-05] MEDS ORDERED: ROPIVACAINE 0.5% PF 20 ML AMPULE ONE ×2 (15:14→15:20)
[2021-05-05] MEDS ORDERED: ONDANSETRON 4 MG/2 ML VIAL ONE (15:15)
[2021-05-05] MEDS ORDERED: DEXAMETHASONE 10 MG/ML VIAL ONE (15:17)
[2021-05-05] MEDS ORDERED: SODIUM CHLORIDE 0.9% 10 ML VIAL IVP ONE (15:18)
[2021-05-05] MEDS ORDERED: SUGAMMADEX 200 MG/2 ML VIAL IVP ONE (15:25)
[2021-05-05] MEDS ORDERED: LACTATED RINGERS 700 ML IV ONE (16:09)
[2021-05-05] MEDS ORDERED: IPRATROPIUM 0.2 MG/ML NEB INH PRN (16:17)
[2021-05-05] MEDS ORDERED: SODIUM CHLORIDE FLUSH 0.9% 10 ML SYRINGE IVP PRN (16:17)
[2021-05-05] MEDS ORDERED: ALBUTEROL NEB 2.5 MG/3 ML INH PRN (16:17)
[2021-05-05] MEDS ORDERED: ONDANSETRON 4 MG/2 ML VIAL IVP PRN ×2 (16:20→16:33)
[2021-05-05] MEDS: HYDROmorphone 0.5 MG/0.5 ML SYRINGE IVP PRN ×2 (16:28→17:45)
--- NOTE | 2021-05-05 16:28 | OPERATIVE REPORT ---
Operative Report - General Admit Date: 05/02/21 Procedure Date: 05/05/21 Planned Procedure: 1. Diagnostic laparoscopy 2. Laparoscopic adhesiolysis 3. Laparoscopic low anterior resection 4. Laparoscopic splenic flexure mobilization 5. Other indicated procedures Pre-Op Diagnosis: Obstructing sigmoid colon cancer; no evidence of mets; Hx of mult Sx Procedure Performed: 1. Diagnostic laparoscopy 2. Laparoscopic adhesiolysis 3. Laparoscopic low anterior resection 4. Laparoscopic splenic flexure mobilization 5. Rigid proctosigmoidoscopy 6. Drain placement 7. Transversus abdominis plane block per anesthesia 8. Umbilical hernia repair Post Op Diagnosis: Same; no extracolonic mets grossly; viable anastomosis - Procedure Note Primary Surgeon: Roxie Secondary Surgeon: Tara Anesthesia Provider: Shaunna Anesthesia Technique: General ET tube, Local, Regional block Pathology: 1. Upper rectum rectosigmoid sigmoid and descending colon 2. Anastomotic donuts Estimated Blood Loss (mL): 100 Drain/Tube Type: Erich drain Indications: See EMR Findings: 1. Tattoo noted at the level of the mass and achieved 5 cm proximal margin. 2. Viable anastomosis after splenic flexure mobilization 3. No tension no torsion no complication. 4. No evidence of extracolonic metastases Complications: None - Other Other Information/Narrative: Procedure: 1. Diagnostic laparoscopy 2. Laparoscopic adhesiolysis 3. Laparoscopic low anterior resection 4. Laparoscopic splenic flexure mobilization 5. Rigid proctosigmoidoscopy 6. Drain placement 7. Transversus abdominis plane block per anesthesia 8. Umbilical hernia repair Findings: 1. Anterior abdominal adhesions midline and within the pelvis. 2. Tattoo noted at the level of the patient's obstructing mass within the sigmoid colon and resected with appropriate margins 3. No tension, viable, healthy anastomosis from the [descending colon] to the mid to upper rectum. Splenic flexure mobilization without complication 4. No extravasation noted at the level of the anastomosis. Saline margin performed. 5. Umbilical hernia status post repair. 6. No evidence of extracolonic metastases 7. Tattoo noted at the level of the mass and achieved 5 cm proximal margin. 8. Viable anastomosis after splenic flexure mobilization 9. No tension no torsion no complication. 10. No evidence of extracolonic metastases Obstructing colon cancer at the level of the sigmoid. No evidence of extracolonic metastases. We performed a double stapled anastomosis with a [31] EEA without any complication. Extraction site was Pfannenstiel incision. Please note height of the dissection (clearly the upper rectum was visualized given the splaying of taenia). Patient had extensive diverticulosis which was taken to account during creation of the anastomosis. DESCRIPTION OF PROCEDURE: OPERATIVE REPORT: The patient was taken to the operating room, placed supine on the operating table. Informed consent had been already confirmed. The patient was placed for bilateral lower extremity serial compression devices and patient was induced for general endotracheal anesthesia. The patient's legs were placed in Henry stirrups with both arms tucked and all pressure points padded and protected. The patient was already on an anti-skid foam maurisio, and was further secured with strap across chest for added security. Patient was performed for TAP block by anesthesia. Patient was dosed with perioperative antibiotics. A time out was called and agreed to by all in the room. Vasquez catheter was already in place. Please note Dr. Aníbal Pacheco was present for the entirety of this operative intervention without whose assistance we would not be able to perform this case given its complexity amongst others. The patient was thereafter prepped and draped in the usual sterile fashion for the abdominal portion of this case. Time out was performed and confirmed. Access and insufflation of the abdomen was achieved by open [place] technique, with camera port access located within the umbilicus. A Circumlinear incision was made at the level of the umbilicus. At this time an umbilical hernia was appreciated for which surgical repair was indicated. To afford appropriate access to the defect for the low anterior resection we proceeded to isolate the umbilical stalk from the surrounding subcutaneous fat. At this time the umbilical stalk was dissected free using Bovie electrocautery from the overlying skin without any associated buttonholing as a result. With this completed, and as listed elsewhere, any additional operative interventions proceeded if performed. We proceeded as follows with the remainder of the case. Once adequate insufflation was achieved, the abdomen was inspected and there was no evidence of trauma, stomach was decompressed after OGT placement, and other intraabdominal findings are as listed above: extensive intraabdominal adhesions of the omentum to anterior abdominal wall. Patient noted for multiple prior operative interventions. Thereafter, we opted to proceed with laparoscopic surgery. Trocar placement: 1. Umbilical Naranjo as listed above 2. Right lower quadrant 11 mm trocar to accommodate laparoscopic hand-held stapler 3. Suprapubic 5 mm port/trocar 4. Right upper quadrant 5 mm trocar Case began with adhesiolysis as follows: Trocars were sequentially placed towards affording appropriate abdominal access for laparoscopic and ultimately Laparoscopic adhesiolysis and enterolysis commences. This was performed in such a way as to maximize exposure and minimize abdominal trauma. We clearly visualized, after appropriate and lengthy laparoscopic adhesiolysis, each trocar placement. Thereafter once appropriate and safe exposure was achieved without any inadvertent injuries or other complicating factors, we proceeded to continue with adhesiolysis to address the patient's extensive intra-abdominal adhesions using sharp Lap dissection, diligent electrocautery, and appropriate countertraction. Please note for multiple reasons as listed above under brief procedural findings, this patient was best suited to minimal access adhesiolysis towards avoiding open intervention, reducing the associated risks thereof, maximizing recovery, minimizing postoperative morbidity and associated stigmata, and enhancing the patient's convalescence towards assuring safe and expeditious ushering into the next step of therapeutic intervention which was crucial given presenting sepsis. This proceeded without any untoward complications, and without any inadvertent injuries or other adverse effect events. With adhesions lysed we proceeded with resection as follows. Along the rectosigmoid mesocolon, the medial peritoneum was incised using the cautery. This was carefully dissected down laterally. The ureter and gonadal vessels were noted and swept down away from colonic mesentery. With this accomplished, and both the ureter and gonadal vessels protected, the inferior mesenteric artery was encircled and divided using EndoGIA vascular staple load, with hemostasis achieved. We proceeded with splenic flexure mobilization taking the lateral peritoneal attachments all the way up affording adequate mobility along with the retroperitoneal attachments carefully minding the location of the ureter and associated structures. No inadvertent injuries or trauma resulted. Once adequate mobility was achieved we proceeded as follows. Once this was completed, we proceeded to continue mobilization of distal rectosigmoid and rectum. The avascular plane between the mesorectum and the presacral space was thereafter entered. This dissection was continued down through to the level of the upper rectum. This was all performed using Ligasure, cautery and countertraction. In addition, the lateral peritoneal reflections of rectum were also divided and ultimately anterior peritoneal reflection of the rectum was divided as well. The mesorectum was then continuously mobilized using Bovie electrocautery. Care was taken not to enter the presacral venous plexus. Again the left ureter was identified and protected throughout. Please see above findings for the height of the dissection (clearly the upper rectum was visualized given the splaying of taenia) and the specific margins performed during this dissection. Please note the patient had multiple tattoo sites from the patient's recent colonoscopy. The most distal was at the level of the malignancy. Proximal appeared at the level of the splenic flexure and represented an area of grossly diverticular free colon. The latter was meant to assist with surgical planning if able to optimize the anastomosis. Obviously the former was a tattoo marked towards assuring we had appropriate mo bilization for an oncologic resection. This was achieved upon explanting the specimen. Once this was completed with adequate distal margin assured in an appropriately mobilized rectum, the mesorectum was then divided using Ligasure vessel sealing device. With mesorectum divided, and hemostatic, the rectum was appropriately cleared and using Endo-stapling device, the upper rectum was thereafter stapled and divided; again ureters were noted and protected throughout. With the sigmoid colon mobilized and rectum divided, we planned to exteriorize the resection specimen through a GelPort site. This was a Pfannenstiel incision. A transverse incision was made suprapubic. This was taken down through skin and subcutaneous tissue with Bovie electrocautery. The fascia was encountered and traversed by Bovie electrocautery longitudinally. Fascial flaps were created this from the underlying rectus. The rectus was divided vertically. Peritoneum was entered without any complication. With this completed, we exteriorized the specimen, chose an area of viable colon proximal to diseased segment, assuring that the proximal resection margin was at least 5 cm from the area of malignancy. Please note we completely mobilized the splenic flexure laparoscopically with the patient in reverse Trendelenburg position. We then divided the mesentery using the energy device and 2-0 ligatures in the clamp/clamp/cut fashion. We placed a pursestring with 2-0 Prolene and thereafter, the 31 EEA anvil was placed into the lumen. With this completed, anvil was replaced into the abdomen, and proceeded to perform the end to end anastomosis after resufflation by closing the Jerrell wound ring. Additional mobilization was performed of the peritoneal reflection which allowed, after dividing the peritoneum surrounding rectum, additional distal mobility without any concern for tension. Please note that on placing the anvil great care was taken to avoid any diverticula at the level of the anastomosis and this was inspected carefully and diligently. We confirmed no tension at the level of the planned coloproctostomy. The EEA stapler was placed through rectum and once appropriately positioned, the spike thereafter was engaged through the staple line of the rectal stump under direct laparoscopic guidance. This was then mated with the trocar of the anvil and once adequately engaged and the colon checked for orientation without evidence of twist, torsion or tension, the EEA was closed and adequate tension was achieved, it was fired without any complication. Again, ureters, both left and right, were identified and protected throughout the entirety of this case. With the EEA fired, donuts were harvested and both were complete and thereafter we performed insufflation test using rigid proctosigmoidoscope under saline immersion without evidence of bubbles or air leak noted laparoscopically. Please note the anastomosis was created by reseparating the abdomen using the GelPort access device who is wound ring was placed in the Pfannenstiel incision. We laparoscopically placed a Erich drain through the suprapubic port near the anastomosis. Please note that glove change was performed after performing the colon resection and insertion of the anvil. Please note that the Pfannenstiel incision was closed in layers as per routine. The peritoneum was closed in a running fashion. Interrupteds were used to reapproximate the rectus muscle. Please note the fascia was closed traverse Drew with a loop PDS suture. Skin was approximated with jerman. The right lower quadrant trocar site was closed with a Kali-Umer suture passer under direct laparoscopic vision. Please note prior to closing the umbilical port final laparoscopic visualization was performed to assure appropriate placement of the drain and placement of the omentum into the pelvis. Please note there was no gross metastatic disease within the liver and no omental caking. Please note the umbilical trocar was removed after deflating the abdomen. Several [id number]'s were used to close the umbilical defect. We proceeded thereafter to perform umbilicoplasty having already extensively irrigated the operative wound with sterile saline. With this complete we closed the skin as follows: skin jerman. All counts for sponges, needles, and instruments were correct at the conclusion of this operative case. All incisions were injected with a with local for rose mary- and postoperative analgesia. The wounds were dressed with Telfa and Tegaderm. Patient was taken extubated to the PACU in stable condition once ureteral stents were removed. I was present for the entirety of this operative intervention. Please note that voice recognition software was used to transcribe this note and inadvertent errors might persist in spite of review and editing. I am obliged to you for your attention. I am thankful to you for allowing me to participate with you in this care of this patient.
[2021-05-05] MEDS ORDERED: HYDROmorphone 0.5 MG/0.5 ML SYRINGE IVP PRN (16:33)
[2021-05-05] MEDS ORDERED: ATROPINE ABBOJECT 1 MG/10 ML SYRINGE IVP PRN (16:33)
[2021-05-05] MEDS ORDERED: fentaNYL 100 MCG/2 ML VIAL IVP PRN (16:33)
[2021-05-05] MEDS ORDERED: NALOXONE 0.4 MG/ML VIAL IVP PRN (16:33)
[2021-05-05] MEDS ORDERED: MORPHINE 2 MG/ML CARPUJECT IVP PRN (16:33)
[2021-05-05] MEDS ORDERED: METOCLOPRAMIDE 10 MG/2 ML VIAL IVP PRN (16:33)
[2021-05-05] MEDS ORDERED: ePHEDrine 50 MG/ML VIAL IVP PRN (16:33)
[2021-05-05] MEDS ORDERED: LACTATED RINGERS 1,000 ML IV SCH (17:00)
[2021-05-05] MEDS ORDERED: D5NS W/20 MEQ KCL 1,000 ML IV SCH (17:00)
[2021-05-05] MEDS: CIPROFLOXACIN 400 MG/200 ML 400 MG/200 ML BAG IV SCH (17:50)
[2021-05-05] MEDS: oxyCODONE 5 MG TABLET PO PRN ×2 (18:38→22:37)
--- NOTE | 2021-05-05 19:54 | PROVIDER PROGRESS NOTE ---
Progress Note BRIEF Operative Report - General Admit Date: 05/02/21 Procedure Date: 05/05/21 Planned Procedure: 1. Diagnostic laparoscopy 2. Laparoscopic adhesiolysis 3. Laparoscopic low anterior resection 4. Laparoscopic splenic flexure mobilization 5. Other indicated procedures Pre-Op Diagnosis: Obstructing sigmoid colon cancer; no evidence of mets; Hx of mult Sx Procedure Performed: 1. Diagnostic laparoscopy 2. Laparoscopic adhesiolysis 3. Laparoscopic low anterior resection 4. Laparoscopic splenic flexure mobilization 5. Rigid proctosigmoidoscopy 6. Drain placement 7. Transversus abdominis plane block per anesthesia 8. Umbilical hernia repair Post Op Diagnosis: Same; no extracolonic mets grossly; viable anastomosis - Procedure Note Primary Surgeon: Roxie Secondary Surgeon: Tara Anesthesia Provider: Shaunna Anesthesia Technique: General ET tube, Local, Regional block Pathology: 1. Upper rectum rectosigmoid sigmoid and descending colon 2. Anastomotic donuts Estimated Blood Loss (mL): 100 Drain/Tube Type: Erich drain Indications: See EMR Findings: 1. Tattoo noted at the level of the mass and achieved 5 cm proximal margin. 2. Viable anastomosis after splenic flexure mobilization 3. No tension no torsion no complication. 4. No evidence of extracolonic metastases Complications: None
[2021-05-05] MEDS: metroNIDAZOLE 500 MG/100 ML 500 MG/100 ML BAG IV SCH (20:09)
[2021-05-05] MEDS: DOCUSATE SODIUM 100 MG CAPSULE PO SCH (21:33)
[2021-05-05] MEDS: polyethylene glycoL 3350 17 GM PACKET PO SCH (21:33)
[2021-05-06] MEDS: HYDROmorphone 0.5 MG/0.5 ML SYRINGE IVP PRN ×6 (00:01→18:54)
[2021-05-06] MEDS: methocarbamoL 500 MG TABLET PO SCH ×4 (00:01→17:41)
[2021-05-06] MEDS: METOCLOPRAMIDE 10 MG/2 ML VIAL IVP SCH ×4 (00:01→17:41)
[2021-05-06] MEDS: SODIUM CHLORIDE FLUSH 0.9% 10 ML SYRINGE IVP SCH ×3 (00:48→16:53)
[2021-05-06] MEDS: metroNIDAZOLE 500 MG/100 ML 500 MG/100 ML BAG IV SCH ×2 (00:48→08:44)
[2021-05-06] MEDS: oxyCODONE 5 MG TABLET PO PRN ×3 (02:17→20:02)
[2021-05-06] MEDS: LACTATED RINGERS 1,000 ML IV SCH ×2 (02:25→14:10)
[2021-05-06] MEDS: CIPROFLOXACIN 400 MG/200 ML 400 MG/200 ML BAG IV SCH (05:10)
[2021-05-06] MEDS: PANTOPRAZOLE 40 MG VIAL IVP SCH (06:04)
[2021-05-06 07:04] LABS: BASOPHILS % (AUTO) 0.1 %; EOSINOPHILS # (AUTO) 0.1 10^3/uL (0.0-0.7); EOSINOPHILS % (AUTO) 1.4 %; HCT - HEMATOCRIT 31.7 % (42.0-52.0); HGB - HEMOGLOBIN 10.2 g/dL (14.0-18.0); LYMPHOCYTES # (AUTO) 0.2 10^3/uL (1.5-3.5); LYMPHOCYTES % (AUTO) 3.2 %; MEAN CORPUSCULAR HEMOGLOBIN 29.5 pg (27.0-31.0); MEAN CORPUSCULAR HGB CONC 32.2 g/dL (32.0-36.0); MEAN CORPUSCULAR VOLUME 91.6 fL (80.0-94.0); MEAN PLATELET VOLUME 11.3 fL (7.4-11.4); MONOCYTES # (AUTO) 0.4 10^3/uL (0.0-1.0); MONOCYTES % (AUTO) 5.7 %; NEUTROPHILS # (AUTO) 6.2 10^3/uL (1.5-6.6); NEUTROPHILS % (AUTO) 89.5 %; PLT - PLATELET COUNT 125 10^3/uL (130-450); RED BLOOD COUNT 3.46 10^6/uL (4.70-6.10); RED CELL DISTRIBUTION WIDTH 12.8 % (12.0-15.0); WHITE BLOOD COUNT 6.9 x10^3/uL (4.8-10.8)
[2021-05-06 07:11] LABS: ALBUMIN 3.2 g/dL (3.2-5.5); ALBUMIN/GLOBULIN RATIO 1.5 (1.0-2.2); BILIRUBIN,TOTAL 0.8 mg/dL (0.2-1.0); CALCIUM 8.1 mg/dL (8.5-10.3); CREATININE 0.9 mg/dL (0.6-1.2); MAGNESIUM 1.5 mg/dL (1.7-2.8); SLIDE REVIEW? Indicated; TOTAL PROTEIN 5.4 g/dL (6.7-8.2)
[2021-05-06 08:00] LABS: RBC MORPHOLOGY (MULTIPLE) 2+ ANISOCYTOSIS (NORMAL)
[2021-05-06] MEDS: DOCUSATE SODIUM 100 MG CAPSULE PO SCH ×2 (08:39→20:02)
[2021-05-06] MEDS: polyethylene glycoL 3350 17 GM PACKET PO SCH ×2 (08:41→20:02)
[2021-05-06] MEDS: TAMSULOSIN 0.4 MG CAPSULE PO SCH (12:26)
[2021-05-06] MEDS: INSULIN REGULAR HUMAN 300 UNIT/3 ML VIAL SUBQ SCH ×2 (12:34→17:34)
--- NOTE | 2021-05-06 12:51 | PROVIDER PROGRESS NOTE ---
Subjective - Prog Note Date Prog Note Date: 05/06/21 - Subjective Subjective: denies nausea. feels full Objective - Vital Signs/Intake & Output Reviewed Vital Signs: Yes Vital Signs: Vital Signs x48h Temp Pulse Resp BP Pulse Ox 05/06/21 12:00 37.0 C 77 21 115/74 99 05/06/21 11:00 81 11 L 127/61 97 05/06/21 10:00 71 12 112/51 L 94 05/06/21 09:00 86 20 111/55 L 95 05/06/21 08:00 37.1 C 81 17 112/60 95 05/06/21 07:00 73 18 113/65 96 05/06/21 06:00 86 18 120/69 96 05/06/21 05:00 37.1 C 83 19 124/65 93 Intake & Output: Intake & Output 05/03/21 05/04/21 05/05/21 05/06/21 23:59 23:59 23:59 23:59 Intake Total 3590 4340 2305.000 1611.667 Output Total 1528 117 5305 2203 Balance 2590 4040 680.000 -591.333 - Objective General Appearance: positive: Alert Eyes Bilateral: positive: PERRL Respiratory: positive: No respiratory distress Abdomen: positive: Non-tender, No distention, Other (dressings c/d/i) Neurologic/Psychiatric: positive: Oriented x3 - Lab Results Fish Bones: 05/06/21 06:20 05/06/21 06:20 Other Labs: Lab Results x24hrs 05/06/21 05/06/21 05/06/21 Range/Units 12:18 06:20 06:20 WBC 6.9 (4.8-10.8) x10^3/uL RBC 3.46 L (4.70-6.10) 10^6/uL Hgb 10.2 L (14.0-18.0) g/dL Hct 31.7 L (42.0-52.0) % MCV 91.6 (80.0-94.0) fL MCH 29.5 (27.0-31.0) pg MCHC 32.2 (32.0-36.0) g/dL RDW 12.8 (12.0-15.0) % Plt Count 125 L (130-450) 10^3/uL MPV 11.3 (7.4-11.4) fL Neut # (Auto) 6.2 (1.5-6.6) 10^3/uL Lymph # (Auto) 0.2 L (1.5-3.5) 10^3/uL [place] # (Auto) 0.4 (0.0-1.0) 10^3/uL Eos # (Auto) 0.1 (0.0-0.7) 10^3/uL Baso # (Auto) 0.0 (0.0-0.1) 10^3/uL Absolute Nucleated RBC 0.00 x10^3/uL Nucleated RBC % 0.0 /100WBC Manual Slide Review Indicated RBC Morph Micro Appear 2+ ANISOCYTOSIS (NORMAL) Sodium 134 L (135-145) mmol/L Potassium 4.0 (3.5-5.0) mmol/L Chloride 103 (101-111) mmol/L Carbon Dioxide 23 (21-32) mmol/L Anion Gap 8.0 (6-13) BUN 8 (6-20) mg/dL Creatinine 0.9 (0.6-1.2) mg/dL Estimated GFR (MDRD) 83 L (>89) Glucose 215 H (70-100) mg/dL POC Whole Bld Glucose 155 H (70 - 100) mg/dL Calcium 8.1 L (8.5-10.3) mg/dL Phosphorus 3.0 (2.5-4.6) mg/dL Magnesium 1.5 L (1.7-2.8) mg/dL Total Bilirubin 0.8 (0.2-1.0) mg/dL AST 20 (10-42) IU/L ALT 15 (10-60) IU/L Alkaline Phosphatase 46 (42-121) IU/L Total Protein 5.4 L (6.7-8.2) g/dL Albumin 3.2 (3.2-5.5) g/dL Globulin 2.2 (2.1-4.2) g/dL Albumin/Globulin Ratio 1.5 (1.0-2.2) 05/06/21 05/06/21 Range/Units 06:07 01:09 WBC (4.8-10.8) x10^3/uL RBC (4.70-6.10) 10^6/uL Hgb (14.0-18.0) g/dL Hct (42.0-52.0) % MCV (80.0-94.0) fL MCH (27.0-31.0) pg MCHC (32.0-36.0) g/dL RDW (12.0-15.0) % Plt Count (130-450) 10^3/uL MPV (7.4-11.4) fL Neut # (Auto) (1.5-6.6) 10^3/uL Lymph # (Auto) (1.5-3.5) 10^3/uL [place] # (Auto) (0.0-1.0) 10^3/uL Eos # (Auto) (0.0-0.7) 10^3/uL Baso # (Auto) (0.0-0.1) 10^3/uL Absolute Nucleated RBC x10^3/uL Nucleated RBC % /100WBC Manual Slide Review RBC Morph Micro Appear (NORMAL) Sodium (135-145) mmol/L Potassium (3.5-5.0) mmol/L Chloride (101-111) mmol/L Carbon Dioxide (21-32) mmol/L Anion Gap (6-13) BUN (6-20) mg/dL Creatinine (0.6-1.2) mg/dL Estimated GFR (MDRD) (>89) Glucose (70-100) mg/dL POC Whole Bld Glucose 200 H 226 H (70 - 100) mg/dL Calcium (8.5-10.3) mg/dL Phosphorus (2.5-4.6) mg/dL Magnesium (1.7-2.8) mg/dL Total Bilirubin (0.2-1.0) mg/dL AST (10-42) IU/L ALT (10-60) IU/L Alkaline Phosphatase (42-121) IU/L Total Protein (6.7-8.2) g/dL Albumin (3.2-5.5) g/dL Globulin (2.1-4.2) g/dL Albumin/Globulin Ratio (1.0-2.2) Assessment/Plan - Problem List (1) 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 add sliding scale for elevated blood sugar. ok to transfer to med surg. continue present care otherwise
[2021-05-06] MEDS: INSULIN ASPART 300 UNIT/3 ML PEN SUBQ SCH (21:30)
[2021-05-07] MEDS: oxyCODONE 5 MG TABLET PO PRN ×6 (00:10→22:48)
[2021-05-07] MEDS: methocarbamoL 500 MG TABLET PO SCH ×5 (00:10→23:35)
[2021-05-07] MEDS: METOCLOPRAMIDE 10 MG/2 ML VIAL IVP SCH ×5 (00:10→23:36)
[2021-05-07] MEDS: LACTATED RINGERS 1,000 ML IV SCH ×3 (00:15→21:02)
[2021-05-07] MEDS: SODIUM CHLORIDE FLUSH 0.9% 10 ML SYRINGE IVP SCH ×3 (00:16→17:00)
[2021-05-07] MEDS: HYDROmorphone 0.5 MG/0.5 ML SYRINGE IVP PRN ×3 (03:36→08:20)
[2021-05-07] MEDS: PANTOPRAZOLE 40 MG VIAL IVP SCH (05:45)
[2021-05-07] MEDS: DOCUSATE SODIUM 100 MG CAPSULE PO SCH ×2 (08:19→21:03)
[2021-05-07] MEDS: INSULIN ASPART 300 UNIT/3 ML PEN SUBQ SCH ×4 (08:19→21:03)
[2021-05-07] MEDS: TAMSULOSIN 0.4 MG CAPSULE PO SCH (08:20)
[2021-05-07] MEDS: polyethylene glycoL 3350 17 GM PACKET PO SCH ×2 (08:20→21:02)
[2021-05-08] MEDS: SODIUM CHLORIDE FLUSH 0.9% 10 ML SYRINGE IVP SCH ×4 (00:39→23:54)
[2021-05-08] MEDS: oxyCODONE 5 MG TABLET PO PRN (05:33)
[2021-05-08 05:58] LABS: BASOPHILS % (AUTO) 0.2 %; EOSINOPHILS # (AUTO) 0.1 10^3/uL (0.0-0.7); EOSINOPHILS % (AUTO) 1.9 %; LYMPHOCYTES # (AUTO) 0.7 10^3/uL (1.5-3.5); LYMPHOCYTES % (AUTO) 12.9 %; MEAN CORPUSCULAR HEMOGLOBIN 29.8 pg (27.0-31.0); MEAN CORPUSCULAR HGB CONC 32.3 g/dL (32.0-36.0); MEAN CORPUSCULAR VOLUME 92.3 fL (80.0-94.0); MEAN PLATELET VOLUME 10.4 fL (7.4-11.4); MONOCYTES # (AUTO) 0.4 10^3/uL (0.0-1.0); NEUTROPHILS # (AUTO) 4.1 10^3/uL (1.5-6.6); NEUTROPHILS % (AUTO) 77.6 %; PLT - PLATELET COUNT 108 10^3/uL (130-450); RED BLOOD COUNT 3.36 10^6/uL (4.70-6.10); WHITE BLOOD COUNT 5.3 x10^3/uL (4.8-10.8)
[2021-05-08 06:32] LABS: ALBUMIN 3.2 g/dL (3.2-5.5); ALBUMIN/GLOBULIN RATIO 1.2 (1.0-2.2); BILIRUBIN,TOTAL 0.9 mg/dL (0.2-1.0); CALCIUM 8.3 mg/dL (8.5-10.3); CREATININE 0.7 mg/dL (0.6-1.2); POTASSIUM 3.5 mmol/L (3.5-5.0); TOTAL PROTEIN 5.9 g/dL (6.7-8.2)
[2021-05-08] MEDS: METOCLOPRAMIDE 10 MG/2 ML VIAL IVP SCH (06:33)
[2021-05-08] MEDS: methocarbamoL 500 MG TABLET PO SCH ×4 (06:33→23:53)
[2021-05-08] MEDS: PANTOPRAZOLE 40 MG VIAL IVP SCH (06:33)
[2021-05-08] MEDS: LACTATED RINGERS 1,000 ML IV SCH ×2 (06:34→21:06)
--- NOTE | 2021-05-08 06:57 | PROVIDER PROGRESS NOTE ---
Progress Note Subjective Patient status post below listed procedures. Scant positive bowel function with loose stooling. No nausea. No emesis. Positive OOB. Pre-Op Diagnosis: Obstructing sigmoid colon cancer; no evidence of mets; Hx of mult Sx Procedure Performed: 1. Diagnostic laparoscopy 2. Laparoscopic adhesiolysis 3. Laparoscopic low anterior resection 4. Laparoscopic splenic flexure mobilization 5. Rigid proctosigmoidoscopy 6. Drain placement 7. Transversus abdominis plane block per anesthesia 8. Umbilical hernia repair Post Op Diagnosis: Same; no extracolonic mets grossly; viable anastomosis Objective Afebrile hemodynamically acceptable General Appearance: positive: No acute distress Eyes Bilateral: positive: Normal inspection ENT: positive: ENT inspection nml Neck: positive: Nml inspection Respiratory: positive: Chest non-tender, No respiratory distress, Breath sounds nml. negative: Wheezes, Rales, Rhonchi Cardiovascular: positive: Regular rate & rhythm Abdomen: positive: No distention, Other. negative: Guarding, Rebound Extremities: positive: Non-tender, Full ROM, Nml appearance Neurologic/Psychiatric: positive: Oriented x3, CN's nml (2-12) Abdominal Exam: Inspection - Erythema none; Scars trocars well healed Auscultation -normoactive bowel sounds Palpation - Hernias none; Fluctuance none; Induration none; Scar N/A Softly distended. Appropriately tender. Positive bowel sounds. Erich drain serosanguineous. Impression/Plan Postoperative day #2 status post above listed procedures. Resumption of bowel function slow as anticipated given ileus extensive adhesiolysis. (1) GI - IVF, bowel regimen, advance diet as tolerated. GI ppx. Anticipate ileus. Opiate sparring analgesia. (2) SURGERY - continue Erich drain. (3) Renal/Lytes - continue IVF. Renal indices within normal limits. Remove rene. (4) Respiratory - O2 as necessary. Continue IS. (5) Heme - Will continue with DVT ppx. H/H stable. (6) Cardiovascular - HD acceptable. (7) Neuro - Opiate sparring analgesia. Antispasmodics with Robaxin. (8) PT/OT
[2021-05-08] MEDS ORDERED: IOPAMIDOL-300 100 ML VIAL ONE (07:02)
[2021-05-08] MEDS: ENOXAPARIN 40 MG/0.4 ML SYRINGE SUBQ SCH (08:12)
[2021-05-08] MEDS ORDERED: IOPAMIDOL-300 100 ML VIAL IVP ONE (08:47)
--- NOTE | 2021-05-08 09:02 | XRAY Report ---
PROCEDURE: Chest 1 View X-Ray INDICATIONS: cough, ngt TECHNIQUE: One view of the chest was acquired. COMPARISON: 05/04/2021 FINDINGS: Surgical changes and devices: Right PICC line with the tip terminating in the right axillary vein is present.. Lungs and pleura: No pleural effusions or pneumothorax. Lungs demonstrate atelectatic change at the right lung base and to a lesser extent laterally at the left. Mediastinum: Mediastinal contours appear normal. Heart size is normal. Bones and chest wall: No suspicious bony lesions. Overlying soft tissues appear unremarkable. Gase ous distention of the loops of colon in the right upper quadrant. IMPRESSION: 1. Mild right lung base atelectasis, likely secondary to low lung volumes given gaseous distention of underlying colonic loops. Underlying infection cannot be excluded. 2. Stable right midline. 3. Concordant with preliminary report. Reviewed by: Bonnie Maurice MD on 05/08/2021 9:01 AM PDT Approved by: Bonnie Maurice MD on 05/08/2021 9:01 AM PDT Station ID: [id number]
--- NOTE | 2021-05-08 09:13 | CT Report ---
PROCEDURE: ANGIO CHEST W/WO INDICATIONS: tachycardia, rule out PE CONTRAST: IV CONTRAST: Optiray 320 ml: 100 PO CONTRAST: *NO PO CONTRAST TECHNIQUE: After the administration of intravenous contrast, images were acquired from the pulmonary apices to t he posterior costophrenic angles. 3-dimensional maximum intensity projection (MIP) coronal and sagit bharti reformats were then acquired through the thorax. For radiation dose reduction, the following was used: automated exposure control, adjustment of mA and/or kV according to patient size. COMPARISON: CT chest 05/02/2021 FINDINGS: Image quality: There is slight motion artifact. Pulmonary arteries: Pulmonary arteries are normal in size, and demonstrate no intraluminal filling d efects to suggest central pulmonary embolism. Evaluation of subsegmental branches slightly limited by motion artifact and suboptimal contrast opacification Lungs and pleura: There is bilateral dependent atelectasis within the lower lobes. In the left lower lobe, there is a peripheral subpleural nodule measuring up to 1.0 cm which appears similar in size co mpared to the prior study. No pleural effusions or pneumothorax. Central and peripheral airways are patent. Mediastinum: Heart size is normal, without pericardial effusion. There is moderate coronary thoraci c calcification. No mediastinal or hilar adenopathy. Thoracic aorta is normal in caliber and enhance ment. Esophagus is normal in caliber, without hiatal hernia. Bones and chest wall: No suspicious bony lesions. Ribs and thoracic spine appear intact throughout. No axillary or supraclavicular adenopathy. The visualized thyroid demonstrates no discrete nodules. There is a small amount of subcutaneous emphysema within the left lateral abdominal wall. Abdomen: Visualized upper abdomen demonstrates gaseous distention of the partially visualized colon at the hepatic flexure. Colonic diverticulosis is also noted in the left upper quadrant. IMPRESSION: 1. No evidence of central pulmonary embolism with slightly limited evaluation of distal subsegmental branches. 2. Bibasilar atelectasis in the lungs. 3. Small subpleural nodule in the left lower lobe measuring up to 1.0 cm appears similar in size to t he recent prior study. The findings are indeterminate and metastatic disease cannot be excluded. Reviewed by: Merritt Malone MD on 05/08/2021 9:12 AM PDT Approved by: Merritt Malone MD on 05/08/2021 9:12 AM PDT Station ID: [id number]
[2021-05-08] MEDS: polyethylene glycoL 3350 17 GM PACKET PO SCH ×2 (09:35→21:09)
[2021-05-08] MEDS: INSULIN ASPART 300 UNIT/3 ML PEN SUBQ SCH ×4 (09:35→20:47)
[2021-05-08] MEDS: TAMSULOSIN 0.4 MG CAPSULE PO SCH (09:35)
[2021-05-08] MEDS: DOCUSATE SODIUM 100 MG CAPSULE PO SCH ×2 (09:35→21:08)
[2021-05-08] MEDS: HYDROmorphone 0.5 MG/0.5 ML SYRINGE IVP PRN ×2 (09:37→11:49)
[2021-05-08] MEDS ORDERED: METOPROLOL 5 MG/5 ML VIAL IVP PRN (10:41)
--- NOTE | 2021-05-08 11:05 | CT Report ---
PROCEDURE: Abdomen/Pelvis W INDICATIONS: tachycardia, evaluate CONTRAST: IV CONTRAST: Optiray 320 ml: 100 PO CONTRAST: *NO PO CONTRAST TECHNIQUE: After the administration of intravenous contrast, 5 mm thick sections acquired from the diaphragms to the symphysis. 5 mm thick coronal and sagittal reformats were acquired. For radiation dose reducti on, the following was used: automated exposure control, adjustment of mA and/or kV according to mg ent size. COMPARISON: CT abdomen and pelvis with contrast, 05/02/2021. FINDINGS: Image quality: Excellent. ABDOMEN: Lung bases: Bibasilar dependent atelectasis. There is a 1.1cm subpleural nodule in the left lower lo be (series 4 image /43). Heart size is normal. Small hiatal hernia. Solid organs: Mild hepatic steatosis. Liver is normal in size and enhancement. Spleen is mildly enl arged measuring 14 cm in length. There is a bandlike hypodensity in the inferior aspect of the spleen , which is new. Gallbladder is surgically absent. Biliary system is non dilated. Pancreas enhances normally. No adrenal nodules. Kidneys demonstrate normal size and enhancement, without hydronephros is. Again noted is a 4 mm nonobstructive stone in the proximal right ureter, unchanged. Peritoneum and bowel: There are postsurgical changes related to partial left colectomy with surgical anastomosis in the sigmoid colon. The mass in sigmoid colon is no longer present. There is a periton eal catheter with the tip in the right mid abdomen the liver. Small bowel loops are filled with fluid but demonstrate normal wall thickness and caliber. There is a small amount of free fluid or mesente ry. No free air. Nodes and vessels: There is a 1.0 x 1.7 cm periportal lymph node. Aorta and inferior vena cava are n ormal in size. Miscellaneous: Enlargement of the rectus abdominis muscles. Intramuscular hematoma measuring 3.9 cm A P x 9.5 cm transverse x 7.0 cm cephalocaudal. Small pockets of air seen within the anterior abdomina l wall. There are skin jerman in the anterior abdominal wall. Mild body wall edema. PELVIS: Genitourinary: Bladder wall thickness is normal. Miscellaneous: No inguinal adenopathy. There is a right inguinal hernia containing fat, air and flu id. A tiny fat-containing left inguinal hernia is also noted. Hydroceles bilaterally. Air within scro yana. Bones: No suspicious bony lesions. No vertebral body compression fractures. IMPRESSION: 1. Interval left hemicolectomy and surgical resection of the sigmoid colon mass. The surgical anastom osis appears intact. There is a small amount of free fluid in the mesentery. No organized, drainable fluid collections to suggest abscess. No findings to suggest colonic obstruction or small bowel obstr uction. 2. There is a 3.9 x 9.5 x 7.0 cm intramuscular hematoma in the anterior abdominal wall involving the rectus abdominis muscles. 3. Mild splenomegaly. There is a bandlike hypodensity in inferior spleen, new since the last exam, co nsistent with splenic infarct. 4. There is a 1.0 x 1.7 cm periportal lymph node. 5. Bilateral fat-containing inguinal hernias. There is fluid and air collections in the right inguina l canal. 6. A 4 mm nonobstructive stone in the proximal right ureter. 7. A 1 cm left basilar lung nodule. The result was discussed with Dr. Terrance Pacheco. Reviewed by: Love Monaco MD on 05/08/2021 10:03 AM MIGUEL Approved by: Love Monaco MD on 05/08/2021 10:03 AM AKGILMER Station ID: [id number]
[2021-05-08] MEDS: METOCLOPRAMIDE 10 MG TABLET PO SCH ×3 (13:29→23:53)
--- NOTE | 2021-05-08 13:45 | PROVIDER PROGRESS NOTE ---
Subjective - Prog Note Date Prog Note Date: 05/08/21 - Subjective Pt reports feeling: No change (he was unaware of fast heart rate. mild burping. passing some gas) Objective - Vital Signs/Intake & Output Reviewed Vital Signs: Yes Vital Signs: Vital Signs x48h Temp Pulse Resp BP BP Pulse Ox 05/08/21 12:39 117 H 107/70 05/08/21 12:25 107/70 05/08/21 12:14 117 H 110/75 05/08/21 12:05 121 H 109/69 05/08/21 11:55 124/77 05/08/21 07:40 37.0 C 138 H 18 127/69 98 05/08/21 06:18 132 H 05/08/21 06:08 137 H 05/08/21 05:50 97 05/08/21 05:45 146 H Intake & Output: Intake & Output 05/05/21 05/06/21 05/07/21 05/08/21 23:59 23:59 23:59 23:59 Intake Total 2305.000 3131.667 5410 953.333 Output Total 1625 3323 1545 120 Balance 680.000 -099.971 0575 833.333 - Objective General Appearance: positive: No acute distress, Alert Neck: positive: No JVD Respiratory: positive: No respiratory distress Abdomen: positive: Non-tender, No distention, Other (lower abdomen ecchymosis. no erythema. venus serosanguinous) Neurologic/Psychiatric: positive: Oriented x3 - Lab Results Fish Bones: 05/08/21 05:50 05/08/21 05:50 Other Labs: Lab Results x24hrs 05/08/21 05/08/21 05/08/21 Range/Units 11:32 07:41 05:50 WBC (4.8-10.8) x10^3/uL RBC (4.70-6.10) 10^6/uL Hgb (14.0-18.0) g/dL Hct (42.0-52.0) % MCV (80.0-94.0) fL MCH (27.0-31.0) pg MCHC (32.0-36.0) g/dL RDW (12.0-15.0) % Plt Count (130-450) 10^3/uL MPV (7.4-11.4) fL Neut # (Auto) (1.5-6.6) 10^3/uL Lymph # (Auto) (1.5-3.5) 10^3/uL [place] # (Auto) (0.0-1.0) 10^3/uL Eos # (Auto) (0.0-0.7) 10^3/uL Baso # (Auto) (0.0-0.1) 10^3/uL Absolute Nucleated RBC x10^3/uL Nucleated RBC % /100WBC Sodium (135-145) mmol/L Potassium (3.5-5.0) mmol/L Chloride (101-111) mmol/L Carbon Dioxide (21-32) mmol/L Anion Gap (6-13) BUN (6-20) mg/dL Creatinine (0.6-1.2) mg/dL Estimated GFR (MDRD) (>89) Glucose (70-100) mg/dL POC Whole Bld Glucose 148 H 127 H (70 - 100) mg/dL Calcium (8.5-10.3) mg/dL Total Bilirubin (0.2-1.0) mg/dL AST (10-42) IU/L ALT (10-60) IU/L Alkaline Phosphatase (42-121) IU/L Troponin I High Sens 16.2 (2.3-19.7) ng/L Total Protein (6.7-8.2) g/dL Albumin (3.2-5.5) g/dL Globulin (2.1-4.2) g/dL Albumin/Globulin Ratio (1.0-2.2) 05/08/21 05/08/21 05/07/21 Range/Units 05:50 05:50 20:25 WBC 5.3 (4.8-10.8) x10^3/uL RBC 3.36 L (4.70-6.10) 10^6/uL Hgb 10.0 L (14.0-18.0) g/dL Hct 31.0 L (42.0-52.0) % MCV 92.3 (80.0-94.0) fL MCH 29.8 (27.0-31.0) pg MCHC 32.3 (32.0-36.0) g/dL RDW 13.0 (12.0-15.0) % Plt Count 108 L (130-450) 10^3/uL MPV 10.4 (7.4-11.4) fL Neut # (Auto) 4.1 (1.5-6.6) 10^3/uL Lymph # (Auto) 0.7 L (1.5-3.5) 10^3/uL [place] # (Auto) 0.4 (0.0-1.0) 10^3/uL Eos # (Auto) 0.1 (0.0-0.7) 10^3/uL Baso # (Auto) 0.0 (0.0-0.1) 10^3/uL Absolute Nucleated RBC 0.00 x10^3/uL Nucleated RBC % 0.0 /100WBC Sodium 140 (135-145) mmol/L Potassium 3.5 (3.5-5.0) mmol/L Chloride 104 (101-111) mmol/L Carbon Dioxide 27 (21-32) mmol/L Anion Gap 9.0 (6-13) BUN 12 (6-20) mg/dL Creatinine 0.7 (0.6-1.2) mg/dL Estimated GFR (MDRD) 111 (>89) Glucose 137 H (70-100) mg/dL POC Whole Bld Glucose 137 H (70 - 100) mg/dL Calcium 8.3 L (8.5-10.3) mg/dL Total Bilirubin 0.9 (0.2-1.0) mg/dL AST 24 (10-42) IU/L ALT 18 (10-60) IU/L Alkaline Phosphatase 45 (42-121) IU/L Troponin I High Sens (2.3-19.7) ng/L Total Protein 5.9 L (6.7-8.2) g/dL Albumin 3.2 (3.2-5.5) g/dL Globulin 2.7 (2.1-4.2) g/dL Albumin/Globulin Ratio 1.2 (1.0-2.2) 05/07/ Range/Units 16:58 WBC (4.8-10.8) x10^3/uL RBC (4.70-6.10) 10^6/uL Hgb (14.0-18.0) g/dL Hct (42.0-52.0) % MCV (80.0-94.0) fL MCH (27.0-31.0) pg MCHC (32.0-36.0) g/dL RDW (12.0-15.0) % Plt Count (130-450) 10^3/uL MPV (7.4-11.4) fL Neut # (Auto) (1.5-6.6) 10^3/uL Lymph # (Auto) (1.5-3.5) 10^3/uL [place] # (Auto) (0.0-1.0) 10^3/uL Eos # (Auto) (0.0-0.7) 10^3/uL Baso # (Auto) (0.0-0.1) 10^3/uL Absolute Nucleated RBC x10^3/uL Nucleated RBC % /100WBC Sodium (135-145) mmol/L Potassium (3.5-5.0) mmol/L Chloride (101-111) mmol/L Carbon Dioxide (21-32) mmol/L Anion Gap (6-13) BUN (6-20) mg/dL Creatinine (0.6-1.2) mg/dL Estimated GFR (MDRD) (>89) Glucose (70-100) mg/dL POC Whole Bld Glucose 158 H (70 - 100) mg/dL Calcium (8.5-10.3) mg/dL Total Bilirubin (0.2-1.0) mg/dL AST (10-42) IU/L ALT (10-60) IU/L Alkaline Phosphatase (42-121) IU/L Troponin I High Sens (2.3-19.7) ng/L Total Protein (6.7-8.2) g/dL Albumin (3.2-5.5) g/dL Globulin (2.1-4.2) g/dL Albumin/Globulin Ratio (1.0-2.2) - Diagnostic Imaging Diagnostic Imaging Results: positive: Read independently (normal postop ct) Assessment/Plan - Problem List (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 doing well except for new onset tachycardia. diet clears with nutrition drinks medicine consult for tachycardia
--- NOTE | 2021-05-08 14:19 | CONSULTATION NOTE ---
Referring Provider Name of Referring Provider:: Aníbal Pacheco Consult Date: 05/08/21 Chief Complaint - Chief Complaint Chief Complaint: New tachycardia History of Present Illness - Admitted From Admitted From:: home - History Obtained From Records Reviewed: inpatient records reviewed History obtained from: hospital chart, patient - History of Present Illness HPI Comment/Other: Mr. Tavares presented 05/02/21 for colonoscopy and upper endoscopy for evaluation of hematochezia and changes to his bowel movements over the last 3 months. He was admitted for staging work of a colonic mass, bowel rest, parenteral nutrition, and hospitalist consult for preoperative risk assessment. His last colonoscopy was in 2006 and was normal. At baseline, he reports having one bowel movement every morning without straining or bleeding. Since February, he has been having 3-4x/day of hematochezia that he reports happens over the toilet during the passage of what he feels is gas. He describes passing "a shot-size glass full of what looks like ground Maraschino cherries" into the toilet. He notified his PCP provider about this and requested to schedule a colonoscopy in February, but due to COVID-related backlogs was unable to schedule anything until April (now). He was found to have a large mass at the distal descending colonic junction with the sigmoid. Today he is POD #2 s/p colectomy. He denies any associated abdominal pain. He denies fevers, chills, nausea, vomiting, fatigue, chest pain, dyspnea, or palpitations. On 05/03/21 a PICC line was attempted but eventually was switched to a midline after the PICC was unable to be advanced past the subclavian. The patient reports the PICC insertion was rather traumatic, and that at one point the insertionist stated the catheter was accidentally advancing into the carotid. Since this experience, the patient has been having moderate to severe pain up the right side of his neck to the front of his shoulder. The pain does not limit his range of motion nor is it exacerbated by movement. The pain is dull, aching/throbbing, and constant. He has since been receiving pain medications for his neck, not for his surgical site. Around 0300 this morning, the patient began having tachycardia. Two separate ECGs performed this morning suggest junctional tachycardia. His HR has remained in the 120s-150s. Troponins so far are negative. Hospitalist service was called and asked to consult. 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) MRSA Hx?: No - Past Surgical History General: reports: Cholecystectomy Ortho: reports: Arthroscopic surgery (right knee due to L&I, R menisectomy), Other (forearm fx as child) Derm: reports: Skin cancer surgery - Family & Social History Family History: Mother: (Mom age 78; dad age 69), COPD/Emphysema, Father: , Cancer (colorectal cancer, age 69), Brother: Diabetes, Type 2, Obesity Living arrangement: At home Living Situation: With spouse/s.o., With family (disabled son) Social History Notes: Full EMS worker - Substance History Use: Uses substance without health or social issues: Alcohol (once a month) Abuse: Recurrent use of substance despite neg consequences: NONE Dependence: Experiences withdrawal or developed tolerances: NONE Tobacco Details: Other (never smoked) - POLST Patient has POLST: No POLST Status: Full Code Meds/Allgy - Home Medications Home Medications: Ambulatory Orders Medication Instructions Recorded Confirmed Ciprofloxacin HCl [Cipro] 500 mg PO BID PRN 05/01/21 05/01/21 Tamsulosin HCl [Flomax] 0.4 mg PO DAILY 05/01/21 05/01/21 - Allergies Allergies/Adverse Reactions: Allergies Allergy/AdvReac Type Severity Reaction Status Date / Time No Known Drug Allergies Allergy Verified 05/01/21 13:30 Review of Systems - Constitutional Constitutional: denies: Fatigue, Fever, Chills, Malaise, Diaphoresis, Night sweats - Eyes Eyes: denies: Pain, Irritation, Blurred vision - Ears, Nose & Throat Ears, Nose & Throat: denies: Ear pain, Hearing loss, Hearing aids, Tinnitus, Vertigo - Cardiovascular Cariovascular: denies: Irregular heart rate, Palpitations, Chest pain, Edema, Lightheadedness, Syncope - Respiratory Respiratory: denies: Cough, Sputum production, Wheezing, SOB at rest, SOB with exertion - Gastrointestinal Gastrointestinal: reports: Change in bowel habits, Rectal bleeding (prior to admission). denies: Abdominal pain, Abdominal distention, Nausea, Vomiting - Genitourinary Genitourinary: reports: Frequency (occasional,), Other (post-surgical penile and scrotal swelling and discoloration; no limitation or pain w/ voiding). denies: Dysuria - Musculoskeletal Musculoskeletal: reports: Other (right neck pain extending to anterior top of shoulder). denies: Back pain, Muscle aches, Stiffness, Limited range of motion, Muscle weakness - Integumentary Integumentary: denies: Rash, Pruritis, Lesions, Dryness - Neurological Neurological: denies: General weakness, Focal weakness, Headache, Dizziness, Numbness, Memory problems - Psychiatric Psychiatric: denies: Depression, Anxiety, Suicidal, Delusions, Hallucinations, Homicidal - Endocrine Endocrine: denies: Polyuria, Polydypsia, Polyphagia - Hematologic/Lymphatic Hematologic/Lymphatic: denies: Anemia, Bruising, Petechiae, Blood clots, Lymphadenopathy, Bleeding tendencies, Recurrent infections Exam - Vital Signs Vital Signs: Vital Signs x48h Temp Pulse Resp BP BP Pulse Ox 05/08/21 12:39 117 H 107/70 05/08/21 12:14 117 H 110/75 05/08/21 12:05 121 H 109/69 05/08/21 11:55 124/77 05/08/21 07:40 37.0 C 138 H 18 127/69 98 05/08/21 06:18 132 H 05/08/21 06:08 137 H 05/08/21 05:50 97 05/08/21 05:45 146 H - Physical Exam General Appearance: positive: No acute distress, Alert Eyes Bilateral: positive: Normal inspection ENT: positive: ENT inspection nml Neck: positive: Nml inspection, Thyroid nml, No JVD, Trachea midline Respiratory: positive: Chest non-tender, No respiratory distress, Breath sounds nml Cardiovascular: positive: Tachycardia (110's-120's HR during exam) Peripheral Pulses: positive: 2+ Abdomen: positive: Nml bowel sounds, Tenderness (post-surgical tenderness to palpation but no new pain, no uncontrolled pain.) Back: positive: Nml inspection Skin: positive: Color nml, No rash, Warm, Dry, Other Extremities: positive: Non-tender, Full ROM, Nml appearance, No pedal edema Neurologic/Psychiatric: positive: Oriented x3 Conclusion/Plan - Diagnosis Diagnosis: We do not believe he is in junctional tachycardia. We believe this to be a narrow complex SVT. He was given 5mg IV metoprolol at noon today which decreased his rate to the 110's. Around 1530 he appeared to have converted back to NSR in the 80's. However, before we could get an EKG to confirm, the patient converted back to SVT in the 130's. He continues to deny chest pain, dizziness, palpitations, nausea, or diaphoresis. We will order diltiazem 10mg IVP. If he continues to stay in SVT we may transfer to ICU to administer adenosine. Continue telemetry. Thank you for this interesting consult. - Lab Results Lab results reviewed: Yes Fish Bones: 05/08/21 05:50 05/08/21 05:50
[2021-05-08] MEDS ORDERED: diltiaZEM INJ 5 MG/ML VIAL IVP ONE (16:13)
[2021-05-08] MEDS: diltiaZEM 30 MG TABLET PO SCH ×2 (17:45→23:53)
[2021-05-09] MEDS: HYDROmorphone 0.5 MG/0.5 ML SYRINGE IVP PRN ×5 (04:32→22:09)
[2021-05-09 05:15] LABS: BASOPHILS % (AUTO) 0.5 %; EOSINOPHILS # (AUTO) 0.1 10^3/uL (0.0-0.7); HCT - HEMATOCRIT 33.9 % (42.0-52.0); HGB - HEMOGLOBIN 10.9 g/dL (14.0-18.0); LYMPHOCYTES # (AUTO) 0.4 10^3/uL (1.5-3.5); LYMPHOCYTES % (AUTO) 7.5 %; MEAN CORPUSCULAR HEMOGLOBIN 29.2 pg (27.0-31.0); MEAN CORPUSCULAR HGB CONC 32.2 g/dL (32.0-36.0); MEAN CORPUSCULAR VOLUME 90.9 fL (80.0-94.0); MEAN PLATELET VOLUME 11.1 fL (7.4-11.4); MONOCYTES # (AUTO) 0.4 10^3/uL (0.0-1.0); NEUTROPHILS # (AUTO) 4.9 10^3/uL (1.5-6.6); NEUTROPHILS % (AUTO) 84.3 %; PLT - PLATELET COUNT 141 10^3/uL (130-450); RED BLOOD COUNT 3.73 10^6/uL (4.70-6.10); WHITE BLOOD COUNT 5.9 x10^3/uL (4.8-10.8)
[2021-05-09 05:30] LABS: ALBUMIN 3.2 g/dL (3.2-5.5); ALBUMIN/GLOBULIN RATIO 1.3 (1.0-2.2); BILIRUBIN,TOTAL 1.2 mg/dL (0.2-1.0); CREATININE 0.7 mg/dL (0.6-1.2); TOTAL PROTEIN 5.6 g/dL (6.7-8.2)
[2021-05-09 05:38] LABS: CALCIUM 8.2 mg/dL (8.5-10.3); POTASSIUM 3.4 mmol/L (3.5-5.0)
[2021-05-09] MEDS: METOCLOPRAMIDE 10 MG TABLET PO SCH ×3 (06:21→18:00)
[2021-05-09] MEDS: PANTOPRAZOLE 40 MG TABLET PO SCH (06:21)
[2021-05-09] MEDS: diltiaZEM 30 MG TABLET PO SCH ×3 (06:22→17:57)
[2021-05-09] MEDS: methocarbamoL 500 MG TABLET PO SCH ×3 (06:22→18:00)
[2021-05-09] MEDS: oxyCODONE 5 MG TABLET PO PRN ×2 (06:25→11:23)
--- NOTE | 2021-05-09 07:34 | PROVIDER PROGRESS NOTE ---
Assessment/Plan - Problem List (1) SVT (supraventricular tachycardia) Assessment/Plan: Patient is currently in normal sinus rhythm. He is on diltiazem 30 mg p.o. every 6 hours. Metoprolol 5 mg IV every 6 hours as needed. 2D echocardiogram pending. Patient would also need to follow-up with cardiology in the outpatient setting. 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 This is being managed by general surgery. - Current Meds Current Meds: Current Medications Generic Name Dose Route Start Last Admin Trade Name Freq PRN Reason Stop Dose Admin Diltiazem HCl 30 mg 05/08/21 18:00 05/09/21 06:22 Diltiazem 30 Mg Tablet PO 30 mg Q6HR BRADY Administration Docusate Sodium 100 mg 05/05/21 21:00 05/08/21 21:08 Docusate Sodium 100 Mg Capsule PO Not Given BID BRADY Enoxaparin Sodium 40 mg 05/08/21 08:00 05/08/21 08:12 Enoxaparin 40 Mg/0.4 Ml Syringe SUBQ 40 mg DAILY BRADY Administration Hydromorphone HCl 0.5 mg 05/02/21 11:30 05/09/21 04:32 Hydromorphone 0.5 Mg/0.5 Ml Syringe IVP 0.5 mg Q2H PRN Administration Pain 8 to 10 Lactated Ringer's 1,000 mls @ 50 mls/hr 05/08/21 13:25 05/08/21 21:06 Lr IV 50 mls/hr .Q20H BRADY Administration Insulin Aspart 1 - 5 unit 05/06/21 21:02 05/08/21 20:47 Insulin Aspart 300 Unit/3 Ml Pen SUBQ Not Given 0800,1200,1700,2100 BRADY Protocol Methocarbamol 500 mg 05/05/21 18:00 05/09/21 06:22 Methocarbamol 500 Mg Tablet PO 500 mg Q6HR BRADY Administration Metoclopramide HCl 10 mg 05/08/21 12:00 05/09/21 06:21 Metoclopramide 10 Mg Tablet PO 10 mg Q6HR BRADY Administration Metoprolol Tartrate 5 mg 05/08/21 10:41 05/08/21 11:55 Metoprolol 5 Mg/5 Ml Vial IVP 5 mg Q6H PRN Administration Tachycardia Oxycodone HCl 5 mg 05/05/21 16:20 05/09/21 06:25 Oxycodone 5 Mg Tablet PO 5 mg Q4HR PRN Administration PAIN Pantoprazole Sodium 40 mg 05/09/21 07:00 05/09/21 06:21 Pantoprazole 40 Mg Tablet PO 40 mg QDAC BRADY Administration Polyethylene Glycol 17 gm 05/05/21 21:00 05/08/21 21:09 Polyethylene Glycol 3350 17 Gm Packet PO Not Given BID BRADY Sodium Chloride 10 ml 05/05/21 17:00 05/08/21 23:54 Sodium Chloride Flush 0.9% 10 Ml Syringe IVP Not Given 0100,0900,1700 BRADY Sodium Chloride 10 ml 05/05/21 16:17 05/07/21 05:46 Sodium Chloride Flush 0.9% 10 Ml Syringe IVP 10 ml PRN PRN Administration NEEDED PER PROVIDER ORDERS Tamsulosin HCl 0.4 mg 05/02/21 13:15 05/08/21 09:35 Tamsulosin 0.4 Mg Capsule PO 0.4 mg DAILY BRADY Administration - Lab Result Fish Bone Diagrams: 05/09/21 04:50 05/09/21 04:50 Subjective - Subjective Patient Reports: Other (Patient was resting comfortably in bed at time of exam. He complained of feeling nauseous. Denied chest pain, dyspnea, abdominal pain, fever or chills. A couple hours later he complained of intense pain in his right scapular area. He has a trigger point.) Objective Vital Signs: Vital Signs - 24 hr 05/08/21 05/08/21 05/08/21 07:40 11:40 11:55 Temperature 37.0 C 37.0 C Heart Rate [ 138 H 138 H Monitoring electrodes] Respiratory 18 18 Rate Blood Pressure 124/77 Blood Pressure 127/69 124/77 [Left Brachial artery] O2 Saturation 98 95 05/08/21 05/08/21 05/08/21 12:05 12:14 12:25 Temperature Heart Rate [ 121 H 117 H Monitoring electrodes] Respiratory Rate Blood Pressure 107/70 Blood Pressure 109/69 110/75 [Left Brachial artery] O2 Saturation 05/08/21 05/08/21 05/08/21 12:39 16:11 16:31 Temperature 36.9 C Heart Rate [ 117 H 80 Monitoring electrodes] Respiratory 20 Rate Blood Pressure 131/69 H Blood Pressure 107/70 131/69 H [Left Brachial artery] O2 Saturation 97 05/08/21 05/08/21 05/08/21 16:44 16:47 17:21 Temperature Heart Rate [ 118 H 72 80 Monitoring electrodes] Respiratory Rate Blood Pressure Blood Pressure 132/55 H 118/66 142/71 H [Left Brachial artery] O2 Saturation 05/08/21 05/08/21 05/08/21 17:45 20:23 23:52 Temperature 37 C 36.9 C Heart Rate [ 76 92 Monitoring electrodes] Respiratory 18 18 Rate Blood Pressure 142/71 H Blood Pressure 119/58 L 141/70 H [Left Brachial artery] O2 Saturation 98 93 05/08/21 05/09/21 05/09/21 23:53 05:00 06:22 Temperature 36.9 C Heart Rate [ 97 Monitoring electrodes] Respiratory 18 Rate Blood Pressure 141/70 H 121/83 H Blood Pressure 158/67 H [Left Brachial artery] O2 Saturation 94 Oxygen O2 Source Room air I&O (Last 24 Hrs): Intake and Output Totals x24h 05/07/21 05/08/21 05/09/21 23:59 23:59 23:59 Intake Total 5410 2693.333 500 Output Total 1545 255 143 Balance 3865 2438.333 357 General: Alert, Moderate distress (right scapular) HEENT: Atraumatic, PERRLA, EOMI Neck: Supple, No JVD Neuro: Alert, Non Focal, Oriented Times 3 Cardiovascular: Regular rate, Normal S1, Normal S2 Respiratory: Chest non-tender, No respiratory distress, Breath sounds nml Abdomen: Normal bowel sounds, Soft, No tenderness Extremities: No clubbing, No cyanosis, No edema, No tenderness/swelling Skin: No rashes, No breakdown, No significant lesion - Results Results: Laboratory Results WBC 5.9 x10^3/uL (4.8-10.8) 05/09/21 04:50 RBC 3.73 10^6/uL (4.70-6.10) L 05/09/21 04:50 Hgb 10.9 g/dL (14.0-18.0) L 05/09/21 04:50 Hct 33.9 % (42.0-52.0) L 05/09/21 04:50 MCV 90.9 fL (80.0-94.0) 05/09/21 04:50 MCH 29.2 pg (27.0-31.0) 05/09/21 04:50 MCHC 32.2 g/dL (32.0-36.0) 05/09/21 04:50 RDW 13.0 % (12.0-15.0) 05/09/21 04:50 Plt Count 141 10^3/uL (130-450) 05/09/21 04:50 MPV 11.1 fL (7.4-11.4) 05/09/21 04:50 Neut # (Auto) 4.9 10^3/uL (1.5-6.6) 05/09/21 04:50 Lymph # (Auto) 0.4 10^3/uL (1.5-3.5) L 05/09/21 04:50 [place] # (Auto) 0.4 10^3/uL (0.0-1.0) 05/09/21 04:50 Eos # (Auto) 0.1 10^3/uL (0.0-0.7) 05/09/21 04:50 Baso # (Auto) 0.0 10^3/uL (0.0-0.1) 05/09/21 04:50 Absolute Nucleated RBC 0.00 x10^3/uL 05/09/21 04:50 Total Counted 100 05/05/21 06:45 Band Neuts % (Manual) 1 % (0-10) 05/05/21 06:45 Abnorm Lymph % (Manual) 0 % 05/05/21 06:45 Nucleated RBC % 0.0 /100WBC 05/09/21 04:50 Neutrophils # (Manual) 1.6 10^3/uL (1.5-6.6) 05/05/21 06:45 Lymphocytes # (Manual) 0.9 10^3/uL (1.5-3.5) L 05/05/21 06:45 Monocytes # (Manual) 0.1 10^3/uL (0.0-1.0) 05/05/21 06:45 Eosinophils # (Manual) 0.1 10^3/uL (0-0.7) 05/05/21 06:45 Basophils # (Manual) 0.0 10^3/uL (0-0.1) 05/05/21 06:45 Differential Comment MANUAL DIFFERENTIAL 05/05/21 06:45 Manual Slide Review Indicated 05/06/21 06:20 WBC Morphology NORMAL APPEARANCE (NORMAL) 05/05/21 06:45 Platelet Estimate DECREASED (<130,000) (NORMAL) 05/05/21 06:45 Platelet Morphology NORMAL APPEARANCE (NORMAL) 05/05/21 06:45 RBC Morph Micro Appear 2+ ANISOCYTOSIS (NORMAL) 05/06/21 06:20 INR (Fingerstick) 1.1 (0.8-1.2) 05/02/21 11:47 APTT 27.8 secs (24.9-33.3) 05/02/21 11:47 Sodium 139 mmol/L (135-145) 05/09/21 04:50 Potassium 3.4 mmol/L (3.5-5.0) L 05/09/21 04:50 Chloride 104 mmol/L (101-111) 05/09/21 04:50 Carbon Dioxide 25 mmol/L (21-32) 05/09/21 04:50 Anion Gap 10.0 (6-13) 05/09/21 04:50 BUN 11 mg/dL (6-20) 05/09/21 04:50 Creatinine 0.7 mg/dL (0.6-1.2) 05/09/21 04:50 Estimated GFR (MDRD) 111 (>89) 05/09/21 04:50 Glucose 156 mg/dL (70-100) H 05/09/21 04:50 POC Whole Bld Glucose 136 mg/dL (70 - 100) H 05/08/21 20:36 Calcium 8.2 mg/dL (8.5-10.3) L 05/09/21 04:50 Phosphorus 3.0 mg/dL (2.5-4.6) 05/06/21 06:20 Magnesium 1.5 mg/dL (1.7-2.8) L 05/06/21 06:20 Total Bilirubin 1.2 mg/dL (0.2-1.0) H 05/09/21 04:50 AST 18 IU/L (10-42) 05/09/21 04:50 ALT 17 IU/L (10-60) 05/09/21 04:50 Alkaline Phosphatase 44 IU/L (42-121) 05/09/21 04:50 Troponin I High Sens 16.2 ng/L (2.3-19.7) 05/08/21 05:50 Total Protein 5.6 g/dL (6.7-8.2) L 05/09/21 04:50 Albumin 3.2 g/dL (3.2-5.5) 05/09/21 04:50 Globulin 2.4 g/dL (2.1-4.2) 05/09/21 04:50 Albumin/Globulin Ratio 1.3 (1.0-2.2) 05/09/21 04:50 Carcinoembryonic Ag 1.5 ng/mL 05/02/21 11:47 ABX Reporting Has patient been on IV antibiotics over the past 48 hours?: No
[2021-05-09] MEDS: polyethylene glycoL 3350 17 GM PACKET PO SCH ×2 (07:40→20:18)
[2021-05-09] MEDS: SODIUM CHLORIDE FLUSH 0.9% 10 ML SYRINGE IVP SCH ×2 (07:40→16:43)
[2021-05-09] MEDS: INSULIN ASPART 300 UNIT/3 ML PEN SUBQ SCH ×4 (07:40→21:25)
[2021-05-09] MEDS: TAMSULOSIN 0.4 MG CAPSULE PO SCH (07:41)
[2021-05-09] MEDS: ENOXAPARIN 40 MG/0.4 ML SYRINGE SUBQ SCH (07:41)
[2021-05-09] MEDS: DOCUSATE SODIUM 100 MG CAPSULE PO SCH ×2 (07:41→20:18)
[2021-05-09] MEDS ORDERED: POTASSIUM CHLOR 10 MEQ/100 ML 10 MEQ/100 ML BAG IV ONE (07:43)
--- NOTE | 2021-05-09 09:37 | PROVIDER PROGRESS NOTE ---
Subjective - Subjective Pt reports feeling: No change (No nausea. Passing gas. No appetitie) Objective - Vital Signs/Intake & Output Reviewed Vital Signs: Yes Vital Signs: Vital Signs x48h Temp Pulse Resp BP BP BP Pulse Ox 05/09/21 07:30 36.7 C 82 18 127/70 94 05/09/21 06:22 121/83 H 05/09/21 05:00 36.9 C 97 18 158/67 H 94 Intake & Output: Intake & Output 05/06/21 05/07/21 05/08/21 05/09/21 23:59 23:59 23:59 23:59 Intake Total 3131.667 5410 2693.333 500 Output Total 3323 1545 255 143 Balance -246.178 7622 2438.333 357 - Objective General Appearance: positive: No acute distress, Alert Eyes Bilateral: positive: PERRL, EOMI Neck: positive: No JVD Respiratory: positive: No respiratory distress Abdomen: positive: Non-tender, Other (moderately distended. ecchymosis improving drain serosanguinous) Neurologic/Psychiatric: positive: Oriented x3 - Lab Results Fish Bones: 05/09/21 04:50 05/09/21 04:50 Other Labs: Lab Results x24hrs 05/09/21 05/09/21 05/09/21 Range/Units 07:29 04:50 04:50 WBC (4.8-10.8) x10^3/uL RBC (4.70-6.10) 10^6/uL Hgb (14.0-18.0) g/dL Hct (42.0-52.0) % MCV (80.0-94.0) fL MCH (27.0-31.0) pg MCHC (32.0-36.0) g/dL RDW (12.0-15.0) % Plt Count (130-450) 10^3/uL MPV (7.4-11.4) fL Neut # (Auto) (1.5-6.6) 10^3/uL Lymph # (Auto) (1.5-3.5) 10^3/uL [place] # (Auto) (0.0-1.0) 10^3/uL Eos # (Auto) (0.0-0.7) 10^3/uL Baso # (Auto) (0.0-0.1) 10^3/uL Absolute Nucleated RBC x10^3/uL Nucleated RBC % /100WBC Sodium 139 (135-145) mmol/L Potassium 3.4 L (3.5-5.0) mmol/L Chloride 104 (101-111) mmol/L Carbon Dioxide 25 (21-32) mmol/L Anion Gap 10.0 (6-13) BUN 11 (6-20) mg/dL Creatinine 0.7 (0.6-1.2) mg/dL Estimated GFR (MDRD) 111 (>89) Glucose 156 H (70-100) mg/dL POC Whole Bld Glucose 125 H (70 - 100) mg/dL Calcium 8.2 L (8.5-10.3) mg/dL Magnesium 2.0 (1.7-2.8) mg/dL Total Bilirubin 1.2 H (0.2-1.0) mg/dL AST 18 (10-42) IU/L ALT 17 (10-60) IU/L Alkaline Phosphatase 44 (42-121) IU/L Total Protein 5.6 L (6.7-8.2) g/dL Albumin 3.2 (3.2-5.5) g/dL Globulin 2.4 (2.1-4.2) g/dL Albumin/Globulin Ratio 1.3 (1.0-2.2) 05/09/21 05/08/21 05/08/21 Range/Units 04:50 20:36 17:00 WBC 5.9 (4.8-10.8) x10^3/uL RBC 3.73 L (4.70-6.10) 10^6/uL Hgb 10.9 L (14.0-18.0) g/dL Hct 33.9 L (42.0-52.0) % MCV 90.9 (80.0-94.0) fL MCH 29.2 (27.0-31.0) pg MCHC 32.2 (32.0-36.0) g/dL RDW 13.0 (12.0-15.0) % Plt Count 141 (130-450) 10^3/uL MPV 11.1 (7.4-11.4) fL Neut # (Auto) 4.9 (1.5-6.6) 10^3/uL Lymph # (Auto) 0.4 L (1.5-3.5) 10^3/uL [place] # (Auto) 0.4 (0.0-1.0) 10^3/uL Eos # (Auto) 0.1 (0.0-0.7) 10^3/uL Baso # (Auto) 0.0 (0.0-0.1) 10^3/uL Absolute Nucleated RBC 0.00 x10^3/uL Nucleated RBC % 0.0 /100WBC Sodium (135-145) mmol/L Potassium (3.5-5.0) mmol/L Chloride (101-111) mmol/L Carbon Dioxide (21-32) mmol/L Anion Gap (6-13) BUN (6-20) mg/dL Creatinine (0.6-1.2) mg/dL Estimated GFR (MDRD) (>89) Glucose (70-100) mg/dL POC Whole Bld Glucose 136 H 118 H (70 - 100) mg/dL Calcium (8.5-10.3) mg/dL Magnesium (1.7-2.8) mg/dL Total Bilirubin (0.2-1.0) mg/dL AST (10-42) IU/L ALT (10-60) IU/L Alkaline Phosphatase (42-121) IU/L Total Protein (6.7-8.2) g/dL Albumin (3.2-5.5) g/dL Globulin (2.1-4.2) g/dL Albumin/Globulin Ratio (1.0-2.2) 05/08/21 Range/Units 11:32 WBC (4.8-10.8) x10^3/uL RBC (4.70-6.10) 10^6/uL Hgb (14.0-18.0) g/dL Hct (42.0-52.0) % MCV (80.0-94.0) fL MCH (27.0-31.0) pg MCHC (32.0-36.0) g/dL RDW (12.0-15.0) % Plt Count (130-450) 10^3/uL MPV (7.4-11.4) fL Neut # (Auto) (1.5-6.6) 10^3/uL Lymph # (Auto) (1.5-3.5) 10^3/uL [place] # (Auto) (0.0-1.0) 10^3/uL Eos # (Auto) (0.0-0.7) 10^3/uL Baso # (Auto) (0.0-0.1) 10^3/uL Absolute Nucleated RBC x10^3/uL Nucleated RBC % /100WBC Sodium (135-145) mmol/L Potassium (3.5-5.0) mmol/L Chloride (101-111) mmol/L Carbon Dioxide (21-32) mmol/L Anion Gap (6-13) BUN (6-20) mg/dL Creatinine (0.6-1.2) mg/dL Estimated GFR (MDRD) (>89) Glucose (70-100) mg/dL POC Whole Bld Glucose 148 H (70 - 100) mg/dL Calcium (8.5-10.3) mg/dL Magnesium (1.7-2.8) mg/dL Total Bilirubin (0.2-1.0) mg/dL AST (10-42) IU/L ALT (10-60) IU/L Alkaline Phosphatase (42-121) IU/L Total Protein (6.7-8.2) g/dL Albumin (3.2-5.5) g/dL Globulin (2.1-4.2) g/dL Albumin/Globulin Ratio (1.0-2.2) Assessment/Plan - Problem List (1) 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 continue present care. home when distension improved
[2021-05-09] MEDS: LACTATED RINGERS 1,000 ML IV SCH ×2 (11:18→17:57)
[2021-05-10] MEDS: diltiaZEM 30 MG TABLET PO SCH ×2 (00:39→06:00)
[2021-05-10] MEDS: methocarbamoL 500 MG TABLET PO SCH ×3 (00:39→12:04)
[2021-05-10] MEDS: METOCLOPRAMIDE 10 MG TABLET PO SCH ×3 (00:39→12:04)
[2021-05-10] MEDS: SODIUM CHLORIDE FLUSH 0.9% 10 ML SYRINGE IVP SCH ×2 (00:40→07:31)
[2021-05-10] MEDS: HYDROmorphone 0.5 MG/0.5 ML SYRINGE IVP PRN ×3 (00:40→11:44)
[2021-05-10] MEDS: oxyCODONE 5 MG TABLET PO PRN ×2 (02:09→10:01)
[2021-05-10 05:02] LABS: BASOPHILS % (AUTO) 0.2 %; EOSINOPHILS # (AUTO) 0.2 10^3/uL (0.0-0.7); EOSINOPHILS % (AUTO) 4.8 %; HCT - HEMATOCRIT 27.9 % (42.0-52.0); HGB - HEMOGLOBIN 9.2 g/dL (14.0-18.0); LYMPHOCYTES # (AUTO) 0.6 10^3/uL (1.5-3.5); MEAN CORPUSCULAR HEMOGLOBIN 30.4 pg (27.0-31.0); MEAN CORPUSCULAR VOLUME 92.1 fL (80.0-94.0); MEAN PLATELET VOLUME 10.8 fL (7.4-11.4); MONOCYTES # (AUTO) 0.3 10^3/uL (0.0-1.0); MONOCYTES % (AUTO) 6.9 %; NEUTROPHILS # (AUTO) 3.2 10^3/uL (1.5-6.6); PLT - PLATELET COUNT 138 10^3/uL (130-450); RED BLOOD COUNT 3.03 10^6/uL (4.70-6.10); RED CELL DISTRIBUTION WIDTH 13.2 % (12.0-15.0); WHITE BLOOD COUNT 4.4 x10^3/uL (4.8-10.8)
[2021-05-10 05:14] LABS: ALBUMIN 2.9 g/dL (3.2-5.5); ALBUMIN/GLOBULIN RATIO 1.6 (1.0-2.2); BILIRUBIN,TOTAL 0.8 mg/dL (0.2-1.0); CALCIUM 7.8 mg/dL (8.5-10.3); CREATININE 0.8 mg/dL (0.6-1.2); POTASSIUM 3.7 mmol/L (3.5-5.0); TOTAL PROTEIN 4.7 g/dL (6.7-8.2)
[2021-05-10] MEDS: PANTOPRAZOLE 40 MG TABLET PO SCH (06:00)
--- NOTE | 2021-05-10 07:14 | PROVIDER PROGRESS NOTE ---
Assessment/Plan - Problem List (1) SVT (supraventricular tachycardia) Assessment/Plan: Patient is currently in normal sinus rhythm. He was prescribed diltiazem CD 120 mg p.o. daily. This prescription was also sent to his pharmacy. The therapy coordinator was asked to facilitate an outpatient cardiology follow-up at the [facility]. [place] done yesterday showed a normal left ventricular size. Left ventricular wall thickness was normal. Overall left ventricular systolic function was normal with an ejection fraction of 60 to 65%. Diastolic function was indeterminate. There was no regional wall motion abnormality. The right ventricle was normal size and function. There was mild increase in the left atrial volume index. Mild right atrial enlargement. The aortic valve was trileaflet. There was moderate aortic valve sclerosis. There was no evidence of aortic stenosis. There was mild aortic regurgitation. There was moderately abnormal right heart pressures. The RVSP at rest was 53 mmHg. There is no pericardial effusion noted. There was no mass or thrombus. There was no pleural effusion. In light of the elevated RVSP, CT Angio of the chest on 05/08/21 which was negative for PE. 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 Patient will be discharged by general surgery today - Current Meds Current Meds: Current Medications Generic Name Dose Route Start Last Admin Trade Name Freq PRN Reason Stop Dose Admin Docusate Sodium 100 mg 05/05/21 21:00 05/09/21 20:18 Docusate Sodium 100 Mg Capsule PO Not Given BID BRADY Enoxaparin Sodium 40 mg 05/08/21 08:00 05/09/21 07:41 Enoxaparin 40 Mg/0.4 Ml Syringe SUBQ 40 mg DAILY BRADY Administration Hydromorphone HCl 0.5 mg 05/02/21 11:30 05/10/21 00:40 Hydromorphone 0.5 Mg/0.5 Ml Syringe IVP 0.5 mg Q2H PRN Administration Pain 8 to 10 Lactated Ringer's 1,000 mls @ 50 mls/hr 05/08/21 13:25 05/09/21 17:57 Lr IV 50 mls/hr .Q20H BRADY Administration Methocarbamol 500 mg 05/05/21 18:00 05/10/21 06:00 Methocarbamol 500 Mg Tablet PO 500 mg Q6HR BRADY Administration Metoclopramide HCl 10 mg 05/08/21 12:00 05/10/21 06:00 Metoclopramide 10 Mg Tablet PO 10 mg Q6HR BRADY Administration Metoprolol Tartrate 5 mg 05/08/21 10:41 05/08/21 11:55 Metoprolol 5 Mg/5 Ml Vial IVP 5 mg Q6H PRN Administration Tachycardia Ondansetron HCl 4 mg 05/05/21 16:20 05/09/21 09:26 Ondansetron 4 Mg/2 Ml Vial IVP 4 mg Q6HR PRN Administration Nausea / Vomiting Oxycodone HCl 5 mg 05/05/21 16:20 05/10/21 02:09 Oxycodone 5 Mg Tablet PO 5 mg Q4HR PRN Administration PAIN Pantoprazole Sodium 40 mg 05/09/21 07:00 05/10/21 06:00 Pantoprazole 40 Mg Tablet PO 40 mg QDAC BRADY Administration Polyethylene Glycol 17 gm 05/05/21 21:00 05/09/21 20:18 Polyethylene Glycol 3350 17 Gm Packet PO Not Given BID BRADY Sodium Chloride 10 ml 05/05/21 17:00 05/10/21 00:40 Sodium Chloride Flush 0.9% 10 Ml Syringe IVP 10 ml 0100,0900,1700 BRADY Administration Sodium Chloride 10 ml 05/05/21 16:17 05/07/21 05:46 Sodium Chloride Flush 0.9% 10 Ml Syringe IVP 10 ml PRN PRN Administration NEEDED PER PROVIDER ORDERS Tamsulosin HCl 0.4 mg 05/02/21 13:15 05/09/21 07:41 Tamsulosin 0.4 Mg Capsule PO 0.4 mg DAILY BRADY Administration - Lab Result Fish Bone Diagrams: 05/10/21 04:40 05/10/21 04:40 - Additional Planning My Orders: My Active Orders 05/09/21 19:00 Telemetry- [RC] Q4HR 05/10/21 09:00 diltiaZEM CD [Cardizem Cd] 120 mg PO DAILY Subjective - Subjective Patient Reports: Other (Patient was resting comfortably in bed. He denied nausea today. He reported some abdominal pain around his incision site which is consistent with surgery. He has been having loose bowel movement. He denies chest pain, dyspnea, fever or chills.) Objective Vital Signs: Vital Signs - 24 hr 05/09/21 05/09/21 05/09/21 07:30 13:00 16:31 Temperature 36.7 C 36.9 C Heart Rate Heart Rate [ 82 88 86 Monitoring electrodes] Respiratory 18 18 18 Rate Blood Pressure Blood Pressure 127/70 123/55 L 139/66 H [Right Brachial artery] O2 Saturation 94 97 96 05/09/21 05/09/21 05/09/21 17:13 17:57 19:36 Temperature 36.9 C 37 C Heart Rate 86 Heart Rate [ 86 Monitoring electrodes] Respiratory 18 20 Rate Blood Pressure 125/56 L Blood Pressure 126/52 L [Right Brachial artery] O2 Saturation 96 96 05/10/21 05/10/21 05/10/21 00:39 00:41 06:00 Temperature 36.7 C Heart Rate Heart Rate [ 82 Monitoring electrodes] Respiratory 18 Rate Blood Pressure 125/76 103/58 L Blood Pressure 125/76 [Right Brachial artery] O2 Saturation 95 05/10/21 06:01 Temperature 36.6 C Heart Rate Heart Rate [ 72 Monitoring electrodes] Respiratory 18 Rate Blood Pressure Blood Pressure 103/58 L [Right Brachial artery] O2 Saturation 96 Oxygen O2 Source Room air I&O (Last 24 Hrs): Intake and Output Totals x24h 05/08/21 05/09/21 05/10/21 23:59 23:59 23:59 Intake Total 2693.333 1960 Output Total 255 453 Balance 2438.333 1507 General: Alert, Oriented x3, Mild distress HEENT: PERRLA, EOMI Neck: Supple, No JVD Neuro: Alert, Non Focal, Oriented Times 3 Cardiovascular: Regular rate, No murmurs Respiratory: Chest non-tender, No respiratory distress, Breath sounds nml Abdomen: Normal bowel sounds, Soft Extremities: No clubbing, No cyanosis, No edema - Results Results: Laboratory Results WBC 4.4 x10^3/uL (4.8-10.8) L 05/10/21 04:40 RBC 3.03 10^6/uL (4.70-6.10) L 05/10/21 04:40 Hgb 9.2 g/dL (14.0-18.0) L 05/10/21 04:40 Hct 27.9 % (42.0-52.0) L 05/10/21 04:40 MCV 92.1 fL (80.0-94.0) 05/10/21 04:40 MCH 30.4 pg (27.0-31.0) 05/10/21 04:40 MCHC 33.0 g/dL (32.0-36.0) 05/10/21 04:40 RDW 13.2 % (12.0-15.0) 05/10/21 04:40 Plt Count 138 10^3/uL (130-450) 05/10/21 04:40 MPV 10.8 fL (7.4-11.4) 05/10/21 04:40 Neut # (Auto) 3.2 10^3/uL (1.5-6.6) 05/10/21 04:40 Lymph # (Auto) 0.6 10^3/uL (1.5-3.5) L 05/10/21 04:40 [place] # (Auto) 0.3 10^3/uL (0.0-1.0) 05/10/21 04:40 Eos # (Auto) 0.2 10^3/uL (0.0-0.7) 05/10/21 04:40 Baso # (Auto) 0.0 10^3/uL (0.0-0.1) 05/10/21 04:40 Absolute Nucleated RBC 0.00 x10^3/uL 05/10/21 04:40 Total Counted 100 05/05/21 06:45 Band Neuts % (Manual) 1 % (0-10) 05/05/21 06:45 Abnorm Lymph % (Manual) 0 % 05/05/21 06:45 Nucleated RBC % 0.0 /100WBC 05/10/21 04:40 Neutrophils # (Manual) 1.6 10^3/uL (1.5-6.6) 05/05/21 06:45 Lymphocytes # (Manual) 0.9 10^3/uL (1.5-3.5) L 05/05/21 06:45 Monocytes # (Manual) 0.1 10^3/uL (0.0-1.0) 05/05/21 06:45 Eosinophils # (Manual) 0.1 10^3/uL (0-0.7) 05/05/21 06:45 Basophils # (Manual) 0.0 10^3/uL (0-0.1) 05/05/21 06:45 Differential Comment MANUAL DIFFERENTIAL 05/05/21 06:45 Manual Slide Review Indicated 05/06/21 06:20 WBC Morphology NORMAL APPEARANCE (NORMAL) 05/05/21 06:45 Platelet Estimate DECREASED (<130,000) (NORMAL) 05/05/21 06:45 Platelet Morphology NORMAL APPEARANCE (NORMAL) 05/05/21 06:45 RBC Morph Micro Appear 2+ ANISOCYTOSIS (NORMAL) 05/06/21 06:20 INR (Fingerstick) 1.1 (0.8-1.2) 05/02/21 11:47 APTT 27.8 secs (24.9-33.3) 05/02/21 11:47 Sodium 138 mmol/L (135-145) 05/10/21 04:40 Potassium 3.7 mmol/L (3.5-5.0) 05/10/21 04:40 Chloride 102 mmol/L (101-111) 05/10/21 04:40 Carbon Dioxide 28 mmol/L (21-32) 05/10/21 04:40 Anion Gap 8.0 (6-13) 05/10/21 04:40 BUN 13 mg/dL (6-20) 05/10/21 04:40 Creatinine 0.8 mg/dL (0.6-1.2) 05/10/21 04:40 Estimated GFR (MDRD) 95 (>89) 05/10/21 04:40 Glucose 131 mg/dL (70-100) H 05/10/21 04:40 POC Whole Bld Glucose 169 mg/dL (70 - 100) H 05/09/21 20:33 Calcium 7.8 mg/dL (8.5-10.3) L 05/10/21 04:40 Phosphorus 3.0 mg/dL (2.5-4.6) 05/06/21 06:20 Magnesium 2.0 mg/dL (1.7-2.8) 05/09/21 04:50 Total Bilirubin 0.8 mg/dL (0.2-1.0) 05/10/21 04:40 AST 17 IU/L (10-42) 05/10/21 04:40 ALT 17 IU/L (10-60) 05/10/21 04:40 Alkaline Phosphatase 38 IU/L (42-121) L 05/10/21 04:40 Troponin I High Sens 16.2 ng/L (2.3-19.7) 05/08/21 05:50 Total Protein 4.7 g/dL (6.7-8.2) L 05/10/21 04:40 Albumin 2.9 g/dL (3.2-5.5) L 05/10/21 04:40 Globulin 1.8 g/dL (2.1-4.2) L 05/10/21 04:40 Albumin/Globulin Ratio 1.6 (1.0-2.2) 05/10/21 04:40 Carcinoembryonic Ag 1.5 ng/mL 05/02/21 11:47 ABX Reporting Has patient been on IV antibiotics over the past 48 hours?: No
[2021-05-10] MEDS: ENOXAPARIN 40 MG/0.4 ML SYRINGE SUBQ SCH (08:35)
[2021-05-10] MEDS: TAMSULOSIN 0.4 MG CAPSULE PO SCH (08:35)
[2021-05-10] MEDS: DOCUSATE SODIUM 100 MG CAPSULE PO SCH (08:36)
[2021-05-10] MEDS: polyethylene glycoL 3350 17 GM PACKET PO SCH (08:36)
[2021-05-10] MEDS ORDERED: diltiaZEM CD 120 MG CAPSULE PO SCH (09:00)
--- NOTE | 2021-05-10 10:38 | Discharge Plan ---
Discharge Plan Problem Reviewed?: Yes Disposition: Home, Self Care Condition: Good Prescriptions: diltiaZEM CD [Cardizem Cd] 120 mg PO DAILY 30 Days #30 cap oxyCODONE/ACET 5/325 [Percocet 5 mg/325 mg] 1 each PO Q4-6H PRN #25 tablet PRN Reason: Pain Diet: Regular Activity Restrictions: No Restrictions Shower Restrictions: No Driving Restrictions: No Additional Instructions or Follow Up instructions: call the office with any concerns call the office to make a follow up appointment [phone] No Smoking: If you smoke, Please STOP! Call for help. Follow-up with: Edy Guerrero MD [Primary Care Provider] -
[2021-05-10 11:20] VITALS: BP 124/67
--- NOTE | 2021-05-10 13:21 | DISCHARGE SUMMARY ---
"Discharge Summary Admit Date: 05/02/21 Discharge Date: 05/10/21 Discharging Provider: wesly clements Code Status: Attempt Resuscitation Condition at Discharge: Good Discharge Disposition: 01 Home, Self Care Discharge Facility Name: [facility] - DIAGNOSES Admission Diagnoses: colon cancer Discharge Diagnoses with Status of Each Condition: home in good condition - HPI History of Present Illness: Found to have near obstruction left colon cancer. - CONSULTS | PROCEDURES Consultations: medicine consult for postop svt Procedures: colectomy with anastomosis - HOSPITAL COURSE Hospital Course: He underwent left colectomy for colon cancer. 2 days following surgery had asymptomatic svt on and off for 24 hours. By time of discharge normal heart rate, tolerating clear liquid diet well, having bms, and minimal abdominal discomfort. - ALLERGIES Allergies/Adverse Reactions: Allergies Allergy/AdvReac Type Severity Reaction Status Date / Time No Known Drug Allergies Allergy Verified 05/01/21 13:30 - MEDICATIONS Home Medications: Ambulatory Orders Medication Instructions Recorded Confirmed Ciprofloxacin HCl [Cipro] 500 mg PO BID PRN 05/01/21 05/01/21 Tamsulosin HCl [Flomax] 0.4 mg PO DAILY 05/01/21 05/01/21 diltiaZEM CD [Cardizem Cd] 120 mg PO DAILY 30 Days #30 cap 05/10/21 oxyCODONE/ACET 5/325 [Percocet 5 1 each PO Q4-6H PRN #25 tablet 05/10/21 mg/325 mg] - PHYSICAL EXAM AT DISCHARGE General Appearance: positive: No acute distress, Alert Eyes Bilateral: positive: PERRL, EOMI ENT: positive: No signs of dehydration Neck: positive: No JVD Respiratory: positive: No respiratory distress Cardiovascular: positive: Regular rate & rhythm Abdomen: positive: Non-tender, No distention, Other (no erythema) Neurologic/Psychiatric: positive: Oriented x3 - LABS Result Diagrams: 05/10/21 04:40 05/10/21 04:40 - QUALITY (Female Hip Fx Only) Was patient sent home on osteoporosis medication?: No - FOLLOW UP Follow Up: surgery call to make an appointment [phone]"
== END 2021-05-10 12:08 | disposition home or self-care (01) | DRG 330 ==
LOC: SDS 08:52 → MS2 11:30 → ICU 05-05 14:06 → MS3 05-06 18:57
PROVIDERS: ADMIT Surgery; ATTEND Surgery
PROC: 0DBN8ZX Excision of Sigmoid Colon, Via Natural or Artificial Opening Endoscopic, Diagnostic (ICD-10-PCS; 2021-05-02)
PROC: 3E0H8GC Introduction of Other Therapeutic Substance into Lower GI, Via Natural or Artificial Opening Endoscopic (ICD-10-PCS; 2021-05-02)
PROC: 0DB98ZX Excision of Duodenum, Via Natural or Artificial Opening Endoscopic, Diagnostic (ICD-10-PCS; 2021-05-02)
PROC: 0DB78ZX Excision of Stomach, Pylorus, Via Natural or Artificial Opening Endoscopic, Diagnostic (ICD-10-PCS; 2021-05-02)
PROC: 0DB38ZX Excision of Lower Esophagus, Via Natural or Artificial Opening Endoscopic, Diagnostic (ICD-10-PCS; 2021-05-02)
PROC: 0DB48ZX Excision of Esophagogastric Junction, Via Natural or Artificial Opening Endoscopic, Diagnostic (ICD-10-PCS; 2021-05-02)
PROC: 05HY33Z Insertion of Infusion Device into Upper Vein, Percutaneous Approach (ICD-10-PCS; 2021-05-04)
PROC: B546ZZA Ultrasonography of Right Subclavian Vein, Guidance (ICD-10-PCS; 2021-05-04)
PROC: 0DTM4ZZ Resection of Descending Colon, Percutaneous Endoscopic Approach (ICD-10-PCS; 2021-05-05)
PROC: 0DTP4ZZ Resection of Rectum, Percutaneous Endoscopic Approach (ICD-10-PCS; 2021-05-05)
PROC: 0DNW4ZZ Release Peritoneum, Percutaneous Endoscopic Approach (ICD-10-PCS; 2021-05-05)
PROC: 0DTN4ZZ Resection of Sigmoid Colon, Percutaneous Endoscopic Approach (ICD-10-PCS; principal; 2021-05-05 11:30)
DX: C18.7 Malignant neoplasm of sigmoid colon (principal); K42.0 Umbilical hernia with obstruction, without gangrene; I47.1 Supraventricular tachycardia; K66.0 Peritoneal adhesions (postprocedural) (postinfection); R73.9 Hyperglycemia, unspecified; K57.30 Diverticulosis of large intestine without perforation or abscess without bleeding; K64.8 Other hemorrhoids; N20.0 Calculus of kidney; N40.0 Benign prostatic hyperplasia without lower urinary tract symptoms; H54.7 Unspecified visual loss; H91.90 Unspecified hearing loss, unspecified ear; Z79.899 Other long term (current) drug therapy; Z90.49 Acquired absence of other specified parts of digestive tract; Z80.0 Family history of malignant neoplasm of digestive organs; Z85.828 Personal history of other malignant neoplasm of skin; Z87.442 Personal history of urinary calculi
CPT/HCPCS: 36415; 43239; 45380; 45381; 71045; 71260; 71275; 74177; 80053; 82378; 83735; 84100; 84484; 85025; 85610; 85730; 93005; 93306; A9270; J0131; J1170; J1650; J1815; J2765; J3010; J7120; Q9967

== ENCOUNTER 2021-05-13 20:28 | Outpatient (CLI) | payer BC, OTHER | END 2021-05-13 20:29 | disposition critical access hospital (66) | LOC: EMS 20:28 | DX: L76.22 Postprocedural hemorrhage of skin and subcutaneous tissue following other procedure (principal) | CPT/HCPCS: A0425; A0429 ==

== ENCOUNTER 2021-05-13 20:44 | Inpatient (IN) | payer BC, OTHER, MEDICARE ==
--- NOTE | 2021-05-13 21:14 | ED Physician Documentation ---
History of Present Illness - Stated complaint Stated Complaint: POST OP BLEEDING - Chief complaint Chief Complaint: Abd Pain - History obtained from History obtained from: Patient - History of Present Illness Timing: Today - Additonal information Additional information: BIBA for bleeding from surgical incision site. He underwent low anterior resection 8 days ago when he was undergoing diagnostic laparoscopy for obstructing colonic mass. Tonight he had sudden onset of bleeding from the incision site. He says he otherwise has been steadily improving since the procedure. He denies cough, dyspnea, dysuria. He says his abdominal discomfort is improving since the surgery. He was noted to have 100.7 temperature by EMS although patient was unaware he had a fever Review of Systems Constitutional: reports: Fever. denies: Chills, Fatigue, Sweats Nose: reports: Reviewed and negative Throat: reports: Reviewed and negative Cardiac: reports: Reviewed and negative Respiratory: reports: Reviewed and negative GI: reports: Abdominal Pain (gradually improving since surgery 8 days ago). 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) - Past Surgical History General: Cholecystectomy Ortho: Arthroscopic surgery (right knee due to L&I, R menisectomy), Other (forearm fx as child) Derm: Skin cancer surgery - Present Medications Home Medications: Ambulatory Orders Medication Instructions Recorded Confirmed Tamsulosin HCl [Flomax] 0.4 mg PO DAILY 05/01/21 05/13/21 diltiaZEM CD [Cardizem Cd] 120 mg PO DAILY 30 Days #30 cap 05/10/21 05/13/21 oxyCODONE/ACET 5/325 [Percocet 5 1 each PO Q4-6H PRN #25 tablet 05/10/21 05/13/21 mg/325 mg] - Allergies Allergies/Adverse Reactions: Allergies Allergy/AdvReac Type Severity Reaction Status Date / Time morphine AdvReac Unknown Verified 05/13/21 21:13 - POLST Patient has POLST: No POLST Status: Full Code PD ED PE NORMAL - Vitals Vital signs reviewed: Yes - General General: Alert and oriented X 3, No acute distress, Well developed/nourished - HEENT HEENT: Moist mucous membranes - Neck Neck: Supple, no meningeal sign - Cardiac Cardiac: RRR - Respiratory Respiratory: No respiratory distress, Clear bilaterally - Abdomen Abdomen: Soft, Non distended, Other (incision sites intact with jerman in place (transverse suprapubic, RUQ, umbilical, RLQ). no active bleeing noted, but there is coagulated/clotted blood noted on dressing over suprapubic dressing. abdomen is tender to palpation without rebound, appropriate to recent procedure) - Derm Derm: Normal color, Warm and dry Results - Vitals Vitals: Vital Signs - 24 hr 05/13/21 05/13/21 05/13/21 21:02 21:28 22:12 Temperature 38.0 C H 37.4 C Heart Rate 80 76 69 Heart Rate [ Monitoring electrodes] Respiratory 13 17 16 Rate Blood Pressure 156/79 H 162/87 H 157/74 H Blood Pressure [Left Brachial artery] O2 Saturation 96 98 95 05/13/21 05/13/21 05/13/21 22:49 23:18 23:30 Temperature 37.5 C 37.5 C 37.8 C Heart Rate 70 70 Heart Rate [ 76 Monitoring electrodes] Respiratory 14 14 18 Rate Blood Pressure 164/79 H 164/79 H Blood Pressure 150/77 H [Left Brachial artery] O2 Saturation 95 95 98 05/14/21 05/14/21 05:05 08:00 Temperature 36.9 C 36.8 C Heart Rate Heart Rate [ 68 69 Monitoring electrodes] Respiratory 16 14 Rate Blood Pressure Blood Pressure 129/68 141/64 H [Left Brachial artery] O2 Saturation 98 96 Oxygen O2 Source Room air - Labs Labs: Laboratory Tests 05/13/21 05/13/21 05/13/21 21:35 21:52 21:52 WBC 7.8 RBC 3.45 L Hgb 10.2 L Hct 32.2 L MCV 93.3 MCH 29.6 MCHC 31.7 L RDW 13.3 Plt Count 194 MPV 10.3 Neut # (Auto) 6.7 H Lymph # (Auto) 0.5 L Branch # (Auto) 0.4 Eos # (Auto) 0.1 Baso # (Auto) 0.0 Absolute Nucleated RBC 0.00 Nucleated RBC % 0.0 PT INR APTT Sodium 138 Potassium 4.3 Chloride 101 Carbon Dioxide 26 Anion Gap 11.0 BUN 9 Creatinine 0.7 Estimated GFR (MDRD) 111 Glucose 148 H Lactic Acid Calcium 8.7 Total Bilirubin 0.6 AST 23 ALT 25 Alkaline Phosphatase 59 Total Protein 6.5 L Albumin 3.5 Globulin 3.0 Albumin/Globulin Ratio 1.2 Lipase 29 TSH Free T4 Urine Color YELLOW Urine Clarity CLEAR Urine pH 7.5 Ur Specific [place] 1.015 Urine Protein NEGATIVE Urine Glucose (UA) NEGATIVE Urine Ketones NEGATIVE Urine Occult Blood NEGATIVE Urine Nitrite NEGATIVE Urine Bilirubin NEGATIVE Urine Urobilinogen 0.2 (NORMAL) Ur Leukocyte Esterase NEGATIVE Ur Microscopic Review NOT INDICATED Urine Culture Comments NOT INDICATED Nasal Adenovirus (PCR) Nasal B. parapertussis DNA (PCR) Nasal Coronavir 229E PCR Nasal Coronavir HKU1 PCR Nasal Coronavir NL63 PCR Nasal Coronavir OC43 PCR Nasal Enterovir/Rhinovir PCR Nasal Influenza B PCR Nasal Influenza A PCR Nasal Parainfluen 1 PCR Nasal Parainfluen 2 PCR Nasal Parainfluen 3 PCR Nasal Parainfluen 4 PCR Nasal RSV (PCR) Nasal B.pertussis DNA PCR Nasal C.pneumoniae (PCR) Imtiaz Human Metapneumo PCR Nasal M.pneumoniae (PCR) Nasal SARS-CoV-2 (PCR) 05/13/21 05/13/21 05/13/21 21:52 21:58 22:58 WBC RBC Hgb Hct MCV MCH MCHC RDW Plt Count MPV Neut # (Auto) Lymph # (Auto) Branch # (Auto) Eos # (Auto) Baso # (Auto) Absolute Nucleated RBC Nucleated RBC % PT 13.9 H INR 1.3 H APTT 34.3 H Sodium Potassium Chloride Carbon Dioxide Anion Gap BUN Creatinine Estimated GFR (MDRD) Glucose Lactic Acid 1.0 Calcium Total Bilirubin AST ALT Alkaline Phosphatase Total Protein Albumin Globulin Albumin/Globulin Ratio Lipase TSH Free T4 Urine Color Urine Clarity Urine pH Ur Specific [place] Urine Protein Urine Glucose (UA) Urine Ketones Urine Occult Blood Urine Nitrite Urine Bilirubin Urine Urobilinogen Ur Leukocyte Esterase Ur Microscopic Review Urine Culture Comments Nasal Adenovirus (PCR) NOT DETECTED Nasal B. parapertussis DNA (PCR) NOT DETECTED Nasal Coronavir 229E PCR NOT DETECTED Nasal Coronavir HKU1 PCR NOT DETECTED Nasal Coronavir NL63 PCR NOT DETECTED Nasal Coronavir OC43 PCR NOT DETECTED Nasal Enterovir/Rhinovir PCR NOT DETECTED Nasal Influenza B PCR NOT DETECTED Nasal Influenza A PCR NOT DETECTED Nasal Parainfluen 1 PCR NOT DETECTED Nasal Parainfluen 2 PCR NOT DETECTED Nasal Parainfluen 3 PCR NOT DETECTED Nasal Parainfluen 4 PCR NOT DETECTED Nasal RSV (PCR) NOT DETECTED Nasal B.pertussis DNA PCR NOT DETECTED Nasal C.pneumoniae (PCR) NOT DETECTED Imtiaz Human Metapneumo PCR NOT DETECTED Nasal M.pneumoniae (PCR) NOT DETECTED Nasal SARS-CoV-2 (PCR) NOT DETECTED 05/14/21 05/14/21 05:48 05:48 WBC 5.6 RBC 2.97 L Hgb 8.9 L Hct 27.1 L MCV 91.2 MCH 30.0 MCHC 32.8 RDW 13.4 Plt Count 173 MPV 10.4 Neut # (Auto) 4.6 Lymph # (Auto) 0.5 L Branch # (Auto) 0.3 Eos # (Auto) 0.1 Baso # (Auto) 0.0 Absolute Nucleated RBC 0.00 Nucleated RBC % 0.0 PT INR APTT Sodium Potassium Chloride Carbon Dioxide Anion Gap BUN Creatinine Estimated GFR (MDRD) Glucose Lactic Acid Calcium Total Bilirubin AST ALT Alkaline Phosphatase Total Protein Albumin Globulin Albumin/Globulin Ratio Lipase TSH 1.39 Free T4 1.23 Urine Color Urine Clarity Urine pH Ur Specific [place] Urine Protein Urine Glucose (UA) Urine Ketones Urine Occult Blood Urine Nitrite Urine Bilirubin Urine Urobilinogen Ur Leukocyte Esterase Ur Microscopic Review Urine Culture Comments Nasal Adenovirus (PCR) Nasal B. parapertussis DNA (PCR) Nasal Coronavir 229E PCR Nasal Coronavir HKU1 PCR Nasal Coronavir NL63 PCR Nasal Coronavir OC43 PCR Nasal Enterovir/Rhinovir PCR Nasal Influenza B PCR Nasal Influenza A PCR Nasal Parainfluen 1 PCR Nasal Parainfluen 2 PCR Nasal Parainfluen 3 PCR Nasal Parainfluen 4 PCR Nasal RSV (PCR) Nasal B.pertussis DNA PCR Nasal C.pneumoniae (PCR) Imtiaz Human Metapneumo PCR Nasal M.pneumoniae (PCR) Nasal SARS-CoV-2 (PCR) PD MEDICAL DECISION MAKING - ED course Complexity details: reviewed old records, reviewed results, considered differential, d/w patient ED course: evaluated in ED by Dr. Vo (zipper ironer surgeon) who will admit to surgical service Departure - Departure Disposition: ED Place in Observation Clinical Impression: Fever Qualifiers: Fever type: post-procedural Qualified Code(s): R50.82 - Postprocedural fever Post-op bleeding Qualifiers: Surgical complication system/body Area: subcutaneous tissue Procedure type: non-dermatologic Qualified Code(s): L76.22 - Postprocedural hemorrhage of skin and subcutaneous tissue following other procedure Condition: Good Discharge Date/Time: 05/13/21 23:10
[2021-05-13 22:03] LABS: BASOPHILS % (AUTO) 0.5 %; EOSINOPHILS # (AUTO) 0.1 10^3/uL (0.0-0.7); HCT - HEMATOCRIT 32.2 % (42.0-52.0); HGB - HEMOGLOBIN 10.2 g/dL (14.0-18.0); LYMPHOCYTES # (AUTO) 0.5 10^3/uL (1.5-3.5); LYMPHOCYTES % (AUTO) 6.1 %; MEAN CORPUSCULAR HEMOGLOBIN 29.6 pg (27.0-31.0); MEAN CORPUSCULAR HGB CONC 31.7 g/dL (32.0-36.0); MEAN CORPUSCULAR VOLUME 93.3 fL (80.0-94.0); MEAN PLATELET VOLUME 10.3 fL (7.4-11.4); MONOCYTES # (AUTO) 0.4 10^3/uL (0.0-1.0); MONOCYTES % (AUTO) 4.8 %; NEUTROPHILS # (AUTO) 6.7 10^3/uL (1.5-6.6); PLT - PLATELET COUNT 194 10^3/uL (130-450); RED BLOOD COUNT 3.45 10^6/uL (4.70-6.10); RED CELL DISTRIBUTION WIDTH 13.3 % (12.0-15.0); WHITE BLOOD COUNT 7.8 x10^3/uL (4.8-10.8)
[2021-05-13 22:09] LABS: BILIRUBIN,URINE NEGATIVE (NEGATIVE); GLUCOSE, URINE (UA) NEGATIVE (NEGATIVE); KETONES,URINE (UA) NEGATIVE (NEGATIVE); LEUKOCYTE ESTERASE, URINE NEGATIVE (NEGATIVE); NITRITE,URINE NEGATIVE (NEGATIVE); OCCULT BLOOD,URINE NEGATIVE (NEGATIVE); PH,URINE 7.5 PH (5.0-7.5); PROTEIN,URINE NEGATIVE (NEGATIVE); UROBILINOGEN,URINE 0.2 (NORMAL) E.U./dL (NORMAL)
[2021-05-13 22:10] LABS: CLARITY,URINE CLEAR (CLEAR)
[2021-05-13 22:10] LABS: INR 1.3 (0.8-1.2); PT - PROTHROMBIN TIME 13.9 secs (9.9-12.6)
[2021-05-13 22:16] LABS: ALBUMIN 3.5 g/dL (3.2-5.5); ALBUMIN/GLOBULIN RATIO 1.2 (1.0-2.2); BILIRUBIN,TOTAL 0.6 mg/dL (0.2-1.0); CALCIUM 8.7 mg/dL (8.5-10.3); CREATININE 0.7 mg/dL (0.6-1.2); POTASSIUM 4.3 mmol/L (3.5-5.0); TOTAL PROTEIN 6.5 g/dL (6.7-8.2)
[2021-05-13 22:17] LABS: PARTIAL THROMBOPLASTIN TIME 34.3 secs (24.9-33.3)
[2021-05-13] MEDS ORDERED: PIPERACILLIN/TAZOBACTAM 4.5 GM in SODIUM CHLORIDE 0.9% MINIBAG 100 ML IV STA (22:19)
[2021-05-13] MEDS ORDERED: SODIUM CHLORIDE FLUSH 0.9% 10 ML SYRINGE IVP PRN (22:38)
--- NOTE | 2021-05-13 22:58 | SURGERY HX AND PHYSICAL(T) ---
Surgical History & Physical - Chief Complaint/HPI Chief Complaint: bleeding from surgical incision History of Present Illness: This 71 yo male had a colonoscopy on 05/02 with finding of a low sigmoid colon cabncer and was taken to surgery for laparoscopic low anterior resection with removal of the resected bowel through a Pfannenstiel incision. The patient was discharged home 05/10 and had been doing well at home. He has had several bowel movements without bleeding. His only concern was some lower abdominal bloating and swelling of his scrotum with discoloration. This evening he urinated and noted a large amount of "old, liquid blood" draining from the midpoint of his Pfannenstiel incision with foul smell noted. No obvious pus. Patient was brought to the Er where a low grade fever was noted. He is not currently on any anticoagulant but believes he was given an anticoagulant during his hospitalization when he had some atrial tachycardia. He has noted no arrhythmia at home and has had no syncope or chest pain. - PMH/PSH/Social Hx Does the pt have a hx of MRSA?: No Neurological History: None Eyes, Ears, Nose, Throat: Chronic vision loss Cardiovascular: None, Arrhythmia (Atrial arrhythmia during last hospitalization, started on cardizem.) Respiratory: None Skin: Other Endocrine/Autoimmune: None Gastrointestinal: GI bleed, Diverticulitis, Cholelithiasis, Other Urinary: Benign prostate hypertrophy, Kidney stones Musculoskeletal: Osteoarthritis Blood Disorders: None Psychiatric: None General: Cholecystectomy, Colonoscopy, Other (Laparoscopic low anterior resection with lysis of adhesions 05/05/2021) Orthopedic: Arthroscopic surgery, Other Urologic: Kidney stents Dermatologic: Skin cancer surgery Smoking Status: Never smoker Does the pt have substance abuse?: No - Home Meds and Allergies Home Medications: Tamsulosin HCl [Flomax] 0.4 mg PO DAILY 05/01/21 Allergies/Adverse Reactions: Allergies Allergy/AdvReac Type Severity Reaction Status Date / Time morphine AdvReac Unknown Verified 05/13/21 21:13 - Review of Systems Constitutional: No: Fatigue, Weakness Respiratory: No: Shortness of breath Gastrointestinal: No: Nausea, Vomiting, Abdominal pain, Hematochechezia - Vital Signs Heart Rate: 70 Blood Pressure: 164/79 Temperature: 37.5 C Respiratory Rate: 14 O2 Saturation: 95 Weight (kg): 91.8 kg Height: 1.7 m - Physical Exam Eyes Bilatera: positive: Normal inspection ENT: positive: ENT inspection nml Neck: positive: Nml inspection Respiratory: positive: No respiratory distress Cardiovascular: positive: Regular rate & rhythm Abdomen: positive: Non-tender, Other (Bruising on lower abdoman and into flanks bilaterally. Hematoma draining from midportion of wound, after cleaned with betadine, no fluctuance and no additional drainage) Rectal: negative: Other (Not done) Extremities: positive: Pedal edema Neurologic/Psychiatric: positive: Oriented x3 - Patient Review Patient Review: Problems were reviewed with the patient during this visit. Medications were reviewed with the patient during this visit. Allergies were reviewed this patient during this visit. Pertinent Tests Reviewed: All pertitent test for this patient were reviewed. - Assessment & Plan Assessment and Plan: 1) Postoperative lower abdominal hematoma spontaneously evacuating through Pfannenstiel incision 8 days post laparoscopic low anterior resection. No dehiscence or cellulitis of abdominal wall. CT ordered for AM 05/14. 2) Atrial arrhythmia postop, started on Cardizem. Unclear if anticoagulated at that time, which would increase likelihood of hematoma. 3) Low grade fever, blood cultures pending, empirically started on Zosyn 4) Lower extremity edema secondary to fluid shifts postop 5) Scrotal ecchymosis and swelling also likely due to postop hematoma in lower abdomen/pelvis. Patient has been able to void well. PLAN: 1) Admit for observation, watching for any additional bleeding, IV Zosyn, CT in AM, CBC in AM 2) Consult Dr May for assistance with managing recent arrhythmia
[2021-05-13] MEDS ORDERED: SODIUM CHLORIDE 0.9% 1,000 ML IV SCH (23:00)
--- NOTE | 2021-05-13 23:02 | CONSULTATION NOTE ---
Referring Provider Name of Referring Provider:: Dr Vo Consult Date: 05/13/21 Chief Complaint - Chief Complaint Chief Complaint: Post-op abd bleeding, fever, Hx of SVT during last hopitalization History of Present Illness - Admitted From Admitted From:: ED - History Obtained From Records Reviewed: Yes History obtained from: ED provider and Dr Vo (Surgeon) and patient - History of Present Illness HPI Comment/Other: This is a 71-year-old white male with a history of diverticulitis, DJD, BPH, remote squamous cell carcinoma of the back with excision, and had recent admiss ion here for colonoscopy and management of a colonic mass. He was seen in preop consultation by the Hospitalist service and felt to have a low risk. He underwent laparoscopic low anterior resection of the mass, splenic flexure mobilization, drain placement and umbilical hernia repair on 05/05/21. Postoperatively on day #3 he went into SVT at a rate of 150 and Hospitalist were involved and contacted Cardiology at [facility], who felt the man had AV Ena Reentrant Tachycardia form of SVT, and advised giving Adenosine. Before Adenosine was given, the SVT broke. He was started on Cardizem. He had a troponin done that was neg for MA, and an Echo that showed normal LVEF of 60%, LA and RA enlargement and moderate pulmonary HTN, withg PA pressure 53 mmHg. Because of pulm HTN, he underwent CTA which ruled out a PE. He was just discharged home 3 days ago. Today he had sudden external bleeding at the surgical site, and was found to have a fever of 38 degrees C in the ER is being placed in Observation status on the surgical service to monitor bleeding and watch for infection. The Hospitalist team is being requested in consult regarding the recent SVT. History - Past Medical History Cardiovascular: reports: Arrhythmia (SVT at 150 bpm, of new onset occurred POD #3 last week.) Respiratory: reports: Other (Pulmonary HTN found by Echo done approx. 1 week ago.) Neuro: reports: None Endocrine/Autoimmune: reports: None GI: reports: GI bleed, Diverticulitis, Cholelithiasis, Other : reports: Benign prostate hypertrophy, Kidney stones HEENT: reports: Chronic vision loss Psych: reports: None Musculoskeletal: reports: Osteoarthritis Derm: reports: Other MRSA Hx?: No - Past Surgical History General: reports: Cholecystectomy, Colonoscopy, Other Ortho: reports: Arthroscopic surgery, Other Derm: reports: Skin cancer surgery - Family & Social History Family History: Mother: (Mom age 78; dad age 69), COPD/Emphysema, Father: , Cancer (colorectal cancer, age 69), Brother: Diabetes, Type 2, Obesity Living Situation: With spouse/s.o., With family (disabled son) Social History Notes: Part-time EMT worker. - Substance History Use: Uses substance without health or social issues: Alcohol (once-twice a month. He never smoked and never used recreational drugs.) - POLST Patient has POLST: No POLST Status: Full Code Meds/Allgy - Home Medications Home Medications: Ambulatory Orders Medication Instructions Recorded Confirmed Tamsulosin HCl [Flomax] 0.4 mg PO DAILY 05/01/21 05/13/21 diltiaZEM CD [Cardizem Cd] 120 mg PO DAILY 30 Days #30 cap 05/10/21 05/13/21 oxyCODONE/ACET 5/325 [Percocet 5 1 each PO Q4-6H PRN #25 tablet 05/10/21 05/13/21 mg/325 mg] - Allergies Allergies/Adverse Reactions: Allergies Allergy/AdvReac Type Severity Reaction Status Date / Time morphine AdvReac Unknown Verified 05/13/21 21:13 Review of Systems - All Other Systems All Other Systems: reports: Reviewed and negative Exam - Vital Signs Vital Signs: Vital Signs x48h Temp Pulse Resp BP Pulse Ox 05/13/21 22:49 37.5 C 70 14 164/79 H 95 05/13/21 22:12 37.4 C 69 16 157/74 H 95 05/13/21 21:28 76 17 162/87 H 98 05/13/21 21:02 38.0 C H 80 13 156/79 H 96 - Physical Exam General Appearance: positive: No acute distress, Other (Male pattern baldness) Eyes Bilateral: positive: Normal inspection, EOMI ENT: positive: ENT inspection nml, No signs of dehydration Neck: positive: Nml inspection, Thyroid nml, No JVD Respiratory: positive: No respiratory distress, Breath sounds nml Cardiovascular: positive: Regular rate & rhythm, Systolic murmur (2/6 at LLSB) Abdomen: positive: Other (Obese, low mid-abd scar dressed, two other lap scars are clean and stapled) Rectal: positive: Other (Scrotum 3+ swollen) Skin: positive: Dry Extremities: positive: Non-tender, Other (3+ edema of legs to knees, 1+ flank pitting edema) Neurologic/Psychiatric: positive: Oriented x3 (Non-focal) Conclusion/Plan - Diagnosis Diagnosis: SVT. Pulmonary HTN. BPH. Sigmoid colon cancer. Post-op bleeding from surgical site. Fever. Anasarca, likely from all iv fluids administered recently - Plan Plan: -Telemetry, to monitor for recurrent arrhythmias. -Continue his home dose of Cardizem, with parameters of when it should be on HOLD. I will restart his usual dose. -He still needs to have his first outpatient appointment with Cardiology, and that should still be the plan. He still needs work-up for etiology of the SVT and pulmonary HTN (R/O hyperthyroidism, coronary ischemia, or conduction system disease and R/O sleep apnea for example). I will order a morning TSH and free T4, since that was not done on the last recent admission. He has already had an Echo showing no significant valve disease and no regional LV wall motion abnormalities or cardiomyopathy. But, he should not undergo a stress test during this hospital stay, since it is too soon postop (and the wound is not stable). -No anticoagulation is required for stroke prophylaxis with SVT, as it is with Afib. -Agree with blood cultures, CT abd/pelvis and empiric iv Zosyn antibiotic. Watch temp. -Lasix 20 mg iv, starting in the a.m. and keep legs and scrotum elevated, to help mobilize his anasarca. I will order the Lasix. -Follow CBC and BMP, Mg daily. - Lab Results Fish Bones: 05/13/21 21:52 05/13/21 21:52
[2021-05-13] MEDS: oxyCODONE 5 MG TABLET PO PRN (23:28)
[2021-05-13] MEDS: ACETAMINOPHEN 325 MG TABLET PO PRN (23:28)
[2021-05-13] MEDS: PIPERACILLIN/TAZOBACTAM 3.375 GM in SODIUM CHLORIDE 0.9% MINIBAG 100 ML IV SCH (23:29)
[2021-05-14 00:04] LABS: B. PARAPERTUSSIS- RESP PCR PAN NOT DETECTED; B. PERTUSSIS- RESP PCR PANEL NOT DETECTED; C. PNEUMONIAE- RESP PCR PANEL NOT DETECTED; CORONAVIRUS 229E-RESP PCR NOT DETECTED; CORONAVIRUS HKU1-RESP PCR NOT DETECTED; CORONAVIRUS NL63-RESP PCR NOT DETECTED; CORONAVIRUS OC43-RESP PCR NOT DETECTED; HUMAN METAPNEUMOVIRUS NOT DETECTED; INFLUENZA A- RESP PCR PANEL NOT DETECTED; INFLUENZA B - RESP PCR PANEL NOT DETECTED; M. PNEUMONIAE- RESP PCR PANEL NOT DETECTED; PARAINFLUENZA VIRUS 1 NOT DETECTED; PARAINFLUENZA VIRUS 2 NOT DETECTED; PARAINFLUENZA VIRUS 3 NOT DETECTED; PARAINFLUENZA VIRUS 4 NOT DETECTED; RHINOVIRUS/ENTEROVIRUS NOT DETECTED; RSV- RESP PCR PANEL NOT DETECTED; SARS-CoV-2 -RESP PCR PANEL NOT DETECTED
[2021-05-14] MEDS: SODIUM CHLORIDE FLUSH 0.9% 10 ML SYRINGE IVP SCH ×4 (02:16→23:09)
[2021-05-14] MEDS: PIPERACILLIN/TAZOBACTAM 3.375 GM in SODIUM CHLORIDE 0.9% MINIBAG 100 ML IV SCH ×4 (04:47→23:08)
[2021-05-14] MEDS: oxyCODONE 5 MG TABLET PO PRN ×3 (04:48→19:36)
[2021-05-14] MEDS: ACETAMINOPHEN 325 MG TABLET PO PRN ×4 (04:48→23:20)
[2021-05-14 06:29] LABS: BASOPHILS % (AUTO) 0.4 %; EOSINOPHILS # (AUTO) 0.1 10^3/uL (0.0-0.7); HCT - HEMATOCRIT 27.1 % (42.0-52.0); HGB - HEMOGLOBIN 8.9 g/dL (14.0-18.0); LYMPHOCYTES # (AUTO) 0.5 10^3/uL (1.5-3.5); LYMPHOCYTES % (AUTO) 9.1 %; MEAN CORPUSCULAR HGB CONC 32.8 g/dL (32.0-36.0); MEAN CORPUSCULAR VOLUME 91.2 fL (80.0-94.0); MEAN PLATELET VOLUME 10.4 fL (7.4-11.4); MONOCYTES # (AUTO) 0.3 10^3/uL (0.0-1.0); MONOCYTES % (AUTO) 5.7 %; NEUTROPHILS # (AUTO) 4.6 10^3/uL (1.5-6.6); NEUTROPHILS % (AUTO) 82.1 %; PLT - PLATELET COUNT 173 10^3/uL (130-450); RED BLOOD COUNT 2.97 10^6/uL (4.70-6.10); RED CELL DISTRIBUTION WIDTH 13.4 % (12.0-15.0); WHITE BLOOD COUNT 5.6 x10^3/uL (4.8-10.8)
[2021-05-14] MEDS: FUROSEMIDE 20 MG/2 ML VIAL IVP SCH (06:47)
[2021-05-14 07:04] LABS: THYROID STIMULATING HORMONE 1.39 uIU/mL (0.34-5.60)
[2021-05-14 07:06] LABS: FREE T4 (FREE THYROXINE) 1.23 ng/dL (0.58-1.64)
--- NOTE | 2021-05-14 08:32 | CT Report ---
PROCEDURE: Abdomen/Pelvis WO INDICATIONS: Postop lower abdominal hematoma TECHNIQUE: Noncontrast 5 mm thick sections acquired from the diaphragms to the symphysis. 5 mm coronal and sagi ttal reformats were then performed. For radiation dose reduction, the following was used: automated exposure control, adjustment of mA and/or kV according to patient size. COMPARISON: CT dated 05/08/2021 FINDINGS: Image quality: Excellent. ABDOMEN: Lung bases: Lung bases are otherwise no change in 10 mm subpleural nodule within the left posterolat eral lung base. Clear. Heart size is normal. Solid organs: Liver and spleen are normal in size. Gallbladder is not seen. Pancreas is normal in contours. No adrenal nodules. Kidneys are normal in size, without hydronephrosis. 3 mm diameter destiny culus within the inferior pole right kidney. No left nephrolithiasis. Peritoneum and bowel: Unenhanced bowel loops demonstrate normal wall thickness and caliber. No free fluid or air. Nodes and vessels: No retroperitoneal or mesenteric adenopathy by size criteria. Aorta and inferior vena cava are normal in caliber. Miscellaneous: No ventral hernias. Previously seen rectus sheath hematoma has decreased in size. The re is increased, moderate subcutaneous gas within the anterior pelvic wall, as well as within the rec tus sheath. PELVIS: Genitourinary: Bladder wall thickness is normal. Miscellaneous: Fat-containing bilateral inguinal hernias are present, as before. Small amount of flui d within the right internal hernia is present, as before. Bones: No suspicious bony lesions. No vertebral body compression fractures. IMPRESSION: 1. No change in left lung base nodule. Continued follow-up is recommended to ensure resolution/stabil ity. 2. Resolving rectus sheath hematoma. 3. Nonobstructing right inferior pole renal calculus. Previously seen proximal right ureteral calculu s is no longer present. 4. Increased gas within the rectus sheath in anterior pelvic wall. Findings could be iatrogenic or se condary to infection with gas present organism. Reviewed by: Maria Ines Gates MD on 05/14/2021 7:31 AM MIGUEL Approved by: Maria Ines Gates MD on 05/14/2021 7:31 AM MIGUEL Station ID: [id number]
[2021-05-14] MEDS: TAMSULOSIN 0.4 MG CAPSULE PO SCH (08:49)
[2021-05-14] MEDS: diltiaZEM CD 120 MG CAPSULE PO SCH (08:49)
--- NOTE | 2021-05-14 10:40 | PROVIDER PROGRESS NOTE ---
Subjective - General Admit Date: 05/13/21 Procedure Date: 05/05/21 Post Op Days: 9 Procedure Performed: Laparoscopic low anterior resection - Review of Systems All Other Systems: positive: Reviewed and negative Objective - Patient Data Reviewed Vital Signs: Yes Vital Signs: Vital Signs x48h Temp Pulse Resp BP Pulse Ox 05/14/21 08:00 36.8 C 69 14 141/64 H 96 05/14/21 05:05 36.9 C 68 16 129/68 98 Weight: Weight 05/12/21 05/13/21 05/14/21 23:59 23:59 23:59 Weight (kg) 91.8 kg Intake & Output: Intake and Output Totals x24h 05/12/21 05/13/21 05/14/21 23:59 23:59 23:59 Intake Total 45 712.917 Balance 45 712.917 - Lab Results Lab Results: 05/14/21 05:48 05/13/21 21:52 Other Lab Results: Lab Results x24hrs 05/14/21 05/14/21 05/13/21 Range/Units 05:48 05:48 22:58 WBC 5.6 (4.8-10.8) x10^3/uL RBC 2.97 L (4.70-6.10) 10^6/uL Hgb 8.9 L (14.0-18.0) g/dL Hct 27.1 L (42.0-52.0) % MCV 91.2 (80.0-94.0) fL MCH 30.0 (27.0-31.0) pg MCHC 32.8 (32.0-36.0) g/dL RDW 13.4 (12.0-15.0) % Plt Count 173 (130-450) 10^3/uL MPV 10.4 (7.4-11.4) fL Neut # (Auto) 4.6 (1.5-6.6) 10^3/uL Lymph # (Auto) 0.5 L (1.5-3.5) 10^3/uL [place] # (Auto) 0.3 (0.0-1.0) 10^3/uL Eos # (Auto) 0.1 (0.0-0.7) 10^3/uL Baso # (Auto) 0.0 (0.0-0.1) 10^3/uL Absolute Nucleated RBC 0.00 x10^3/uL Nucleated RBC % 0.0 /100WBC PT (9.9-12.6) secs INR (0.8-1.2) APTT (24.9-33.3) secs Sodium (135-145) mmol/L Potassium (3.5-5.0) mmol/L Chloride (101-111) mmol/L Carbon Dioxide (21-32) mmol/L Anion Gap (6-13) BUN (6-20) mg/dL Creatinine (0.6-1.2) mg/dL Estimated GFR (MDRD) (>89) Glucose (70-100) mg/dL Lactic Acid (0.5-2.2) mmol/L Calcium (8.5-10.3) mg/dL Total Bilirubin (0.2-1.0) mg/dL AST (10-42) IU/L ALT (10-60) IU/L Alkaline Phosphatase (42-121) IU/L Total Protein (6.7-8.2) g/dL Albumin (3.2-5.5) g/dL Globulin (2.1-4.2) g/dL Albumin/Globulin Ratio (1.0-2.2) Lipase (22-51) U/L TSH 1.39 (0.34-5.60) uIU/mL Free T4 1.23 (0.58-1.64) ng/dL Urine Color Urine Clarity (CLEAR) Urine pH (5.0-7.5) PH Ur Specific [place] (1.002-1.030) Urine Protein (NEGATIVE) mg/dL Urine Glucose (UA) (NEGATIVE) mg/dL Urine Ketones (NEGATIVE) mg/dL Urine Occult Blood (NEGATIVE) Urine Nitrite (NEGATIVE) Urine Bilirubin (NEGATIVE) Urine Urobilinogen (NORMAL) E.U./dL Ur Leukocyte Esterase (NEGATIVE) Ur Microscopic Review Urine Culture Comments Nasal Adenovirus (PCR) NOT DETECTED Nasal B. parapertussis DNA (PCR) NOT DETECTED Nasal Coronavir 229E PCR NOT DETECTED Nasal Coronavir HKU1 PCR NOT DETECTED Nasal Coronavir NL63 PCR NOT DETECTED Nasal Coronavir OC43 PCR NOT DETECTED Nasal Enterovir/Rhinovir PCR NOT DETECTED Nasal Influenza B PCR NOT DETECTED Nasal Influenza A PCR NOT DETECTED Nasal Parainfluen 1 PCR NOT DETECTED Nasal Parainfluen 2 PCR NOT DETECTED Nasal Parainfluen 3 PCR NOT DETECTED Nasal Parainfluen 4 PCR NOT DETECTED Nasal RSV (PCR) NOT DETECTED Nasal B.pertussis DNA PCR NOT DETECTED Nasal C.pneumoniae (PCR) NOT DETECTED Imtiaz Human Metapneumo PCR NOT DETECTED Nasal M.pneumoniae (PCR) NOT DETECTED Nasal SARS-CoV-2 (PCR) NOT DETECTED 05/13/21 05/13/21 05/13/21 Range/Units 21:58 21:52 21:52 WBC (4.8-10.8) x10^3/uL RBC (4.70-6.10) 10^6/uL Hgb (14.0-18.0) g/dL Hct (42.0-52.0) % MCV (80.0-94.0) fL MCH (27.0-31.0) pg MCHC (32.0-36.0) g/dL RDW (12.0-15.0) % Plt Count (130-450) 10^3/uL MPV (7.4-11.4) fL Neut # (Auto) (1.5-6.6) 10^3/uL Lymph # (Auto) (1.5-3.5) 10^3/uL [place] # (Auto) (0.0-1.0) 10^3/uL Eos # (Auto) (0.0-0.7) 10^3/uL Baso # (Auto) (0.0-0.1) 10^3/uL Absolute Nucleated RBC x10^3/uL Nucleated RBC % /100WBC PT 13.9 H (9.9-12.6) secs INR 1.3 H (0.8-1.2) APTT 34.3 H (24.9-33.3) secs Sodium 138 (135-145) mmol/L Potassium 4.3 (3.5-5.0) mmol/L Chloride 101 (101-111) mmol/L Carbon Dioxide 26 (21-32) mmol/L Anion Gap 11.0 (6-13) BUN 9 (6-20) mg/dL Creatinine 0.7 (0.6-1.2) mg/dL Estimated GFR (MDRD) 111 (>89) Glucose 148 H (70-100) mg/dL Lactic Acid 1.0 (0.5-2.2) mmol/L Calcium 8.7 (8.5-10.3) mg/dL Total Bilirubin 0.6 (0.2-1.0) mg/dL AST 23 (10-42) IU/L ALT 25 (10-60) IU/L Alkaline Phosphatase 59 (42-121) IU/L Total Protein 6.5 L (6.7-8.2) g/dL Albumin 3.5 (3.2-5.5) g/dL Globulin 3.0 (2.1-4.2) g/dL Albumin/Globulin Ratio 1.2 (1.0-2.2) Lipase 29 (22-51) U/L TSH (0.34-5.60) uIU/mL Free T4 (0.58-1.64) ng/dL Urine Color Urine Clarity (CLEAR) Urine pH (5.0-7.5) PH Ur Specific [place] (1.002-1.030) Urine Protein (NEGATIVE) mg/dL Urine Glucose (UA) (NEGATIVE) mg/dL Urine Ketones (NEGATIVE) mg/dL Urine Occult Blood (NEGATIVE) Urine Nitrite (NEGATIVE) Urine Bilirubin (NEGATIVE) Urine Urobilinogen (NORMAL) E.U./dL Ur Leukocyte Esterase (NEGATIVE) Ur Microscopic Review Urine Culture Comments Nasal Adenovirus (PCR) Nasal B. parapertussis DNA (PCR) Nasal Coronavir 229E PCR Nasal Coronavir HKU1 PCR Nasal Coronavir NL63 PCR Nasal Coronavir OC43 PCR Nasal Enterovir/Rhinovir PCR Nasal Influenza B PCR Nasal Influenza A PCR Nasal Parainfluen 1 PCR Nasal Parainfluen 2 PCR Nasal Parainfluen 3 PCR Nasal Parainfluen 4 PCR Nasal RSV (PCR) Nasal B.pertussis DNA PCR Nasal C.pneumoniae (PCR) Imtiaz Human Metapneumo PCR Nasal M.pneumoniae (PCR) Nasal SARS-CoV-2 (PCR) 05/13/21 05/13/21 Range/Units 21:52 21:35 WBC 7.8 (4.8-10.8) x10^3/uL RBC 3.45 L (4.70-6.10) 10^6/uL Hgb 10.2 L (14.0-18.0) g/dL Hct 32.2 L (42.0-52.0) % MCV 93.3 (80.0-94.0) fL MCH 29.6 (27.0-31.0) pg MCHC 31.7 L (32.0-36.0) g/dL RDW 13.3 (12.0-15.0) % Plt Count 194 (130-450) 10^3/uL MPV 10.3 (7.4-11.4) fL Neut # (Auto) 6.7 H (1.5-6.6) 10^3/uL Lymph # (Auto) 0.5 L (1.5-3.5) 10^3/uL [place] # (Auto) 0.4 (0.0-1.0) 10^3/uL Eos # (Auto) 0.1 (0.0-0.7) 10^3/uL Baso # (Auto) 0.0 (0.0-0.1) 10^3/uL Absolute Nucleated RBC 0.00 x10^3/uL Nucleated RBC % 0.0 /100WBC PT (9.9-12.6) secs INR (0.8-1.2) APTT (24.9-33.3) secs Sodium (135-145) mmol/L Potassium (3.5-5.0) mmol/L Chloride (101-111) mmol/L Carbon Dioxide (21-32) mmol/L Anion Gap (6-13) BUN (6-20) mg/dL Creatinine (0.6-1.2) mg/dL Estimated GFR (MDRD) (>89) Glucose (70-100) mg/dL Lactic Acid (0.5-2.2) mmol/L Calcium (8.5-10.3) mg/dL Total Bilirubin (0.2-1.0) mg/dL AST (10-42) IU/L ALT (10-60) IU/L Alkaline Phosphatase (42-121) IU/L Total Protein (6.7-8.2) g/dL Albumin (3.2-5.5) g/dL Globulin (2.1-4.2) g/dL Albumin/Globulin Ratio (1.0-2.2) Lipase (22-51) U/L TSH (0.34-5.60) uIU/mL Free T4 (0.58-1.64) ng/dL Urine Color YELLOW Urine Clarity CLEAR (CLEAR) Urine pH 7.5 (5.0-7.5) PH Ur Specific [place] 1.015 (1.002-1.030) Urine Protein NEGATIVE (NEGATIVE) mg/dL Urine Glucose (UA) NEGATIVE (NEGATIVE) mg/dL Urine Ketones NEGATIVE (NEGATIVE) mg/dL Urine Occult Blood NEGATIVE (NEGATIVE) Urine Nitrite NEGATIVE (NEGATIVE) Urine Bilirubin NEGATIVE (NEGATIVE) Urine Urobilinogen 0.2 (NORMAL) (NORMAL) E.U./dL Ur Leukocyte Esterase NEGATIVE (NEGATIVE) Ur Microscopic Review NOT INDICATED Urine Culture Comments NOT INDICATED Nasal Adenovirus (PCR) Nasal B. parapertussis DNA (PCR) Nasal Coronavir 229E PCR Nasal Coronavir HKU1 PCR Nasal Coronavir NL63 PCR Nasal Coronavir OC43 PCR Nasal Enterovir/Rhinovir PCR Nasal Influenza B PCR Nasal Influenza A PCR Nasal Parainfluen 1 PCR Nasal Parainfluen 2 PCR Nasal Parainfluen 3 PCR Nasal Parainfluen 4 PCR Nasal RSV (PCR) Nasal B.pertussis DNA PCR Nasal C.pneumoniae (PCR) Imtiaz Human Metapneumo PCR Nasal M.pneumoniae (PCR) Nasal SARS-CoV-2 (PCR) - Current Medications Current Medications: Current Medications Generic Name Dose Route Start Last Admin Trade Name Freq PRN Reason Stop Dose Admin Acetaminophen 650 mg 05/13/21 22:38 05/14/21 08:49 Acetaminophen 325 Mg Tablet PO 650 mg Q4HR PRN Administration Pain or Fever > 38C (100.4F) Diltiazem HCl 120 mg 05/14/21 09:00 05/14/21 08:49 Diltiazem Cd 120 Mg Capsule PO 120 mg DAILY BRADY Administration Furosemide 20 mg 05/14/21 06:00 05/14/21 06:47 Furosemide 20 Mg/2 Ml Vial IVP 05/15/21 23:00 20 mg 0600 BRADY Administration Piperacillin Sod/Tazobactam 100 mls @ 25 mls/hr 05/14/21 05:04 05/14/21 08:33 Sod 3.375 gm/ Sodium Chloride IV 25 mls/hr Q8H BRADY Infusion Oxycodone HCl 5 mg 05/13/21 22:38 05/14/21 08:49 Oxycodone 5 Mg Tablet PO 5 mg Q4HR PRN Administration Pain 5 to 7 Sodium Chloride 10 ml 05/14/21 01:00 05/14/21 08:33 Sodium Chloride Flush 0.9% 10 Ml Syringe IVP 10 ml 0100,0900,1700 BRADY Administration Tamsulosin HCl 0.4 mg 05/14/21 09:00 05/14/21 08:49 Tamsulosin 0.4 Mg Capsule PO 0.4 mg DAILY BRADY Administration - Physical Exam Wound/Incisions: positive: Other (Minimal bloody drainage from midportion of Pfannenstiel incision.No significant cellulitis.No fluctuance on palpation. Remainder of abdominal exam is unremarkable with no tenderness.) Impression/Plan - Problem List Problem List: 9 days postop laparoscopic low anterior resection. The patient had a rectus sheath hematoma identified on CT scan about 3 days postop. This spontaneously drained through the midportion of the Pfannenstiel incision yesterday. He has tenderness of the incision but there is no gross purulence and the incision is intact. IV Zosyn started yesterday. White blood cell count is normal, hematocrit has decreased to 27. CT scan of the abdomen and pelvis shows that the rectus sheath hematoma has migrated into the subcutaneous tissues. There are some gas bubbles but these are probably related to surgery and spontaneous drainage of the hematoma. Patient is currently in sinus rhythm. He will continue on IV Zosyn and be admitted. The incision will be watched closely. Diet will be advanced. Assistance of the hospitalist service appreciated with management of his atrial arrhythmias.
[2021-05-14 16:58] LABS: HCT - HEMATOCRIT 27.9 % (42.0-52.0); HGB - HEMOGLOBIN 9.1 g/dL (14.0-18.0)
--- NOTE | 2021-05-14 17:58 | PROVIDER PROGRESS NOTE ---
Assessment/Plan - Problem List (1) Post-op bleeding Qualifiers: Surgical complication system/body Area: subcutaneous tissue Procedure type: non-dermatologic Qualified Code(s): L76.22 - Postprocedural hemorrhage of skin and subcutaneous tissue following other procedure Assessment/Plan: Managed by General Surgery (primary) Rectus sheath hematoma. Rule out infection Patient on Zosyn 3.375g IV 8hrs Lasix IV was given for scrotal edema and +1 lower extremity edema (2) SVT (supraventricular tachycardia) Assessment/Plan: Continue cardizem CD 120mg daily Patient to follow up with outpatient cardiology TSH and free T4 for normal 2D echo done a few days ago was unremarkable for any significant findings Patient will need a stress test after complete recovery from surgery - Current Meds Current Meds: Current Medications Generic Name Dose Route Start Last Admin Trade Name Freq PRN Reason Stop Dose Admin Acetaminophen 650 mg 05/13/21 22:38 05/14/21 08:49 Acetaminophen 325 Mg Tablet PO 650 mg Q4HR PRN Administration Pain or Fever > 38C (100.4F) Diltiazem HCl 120 mg 05/14/21 09:00 05/14/21 08:49 Diltiazem Cd 120 Mg Capsule PO 120 mg DAILY BRADY Administration Furosemide 20 mg 05/14/21 06:00 05/14/21 06:47 Furosemide 20 Mg/2 Ml Vial IVP 05/15/21 23:00 20 mg 0600 BRADY Administration Piperacillin Sod/Tazobactam 100 mls @ 25 mls/hr 05/14/21 05:04 05/14/21 14:30 Sod 3.375 gm/ Sodium Chloride IV 25 mls/hr Q8H BRADY Administration Oxycodone HCl 5 mg 05/13/21 22:38 05/14/21 08:49 Oxycodone 5 Mg Tablet PO 5 mg Q4HR PRN Administration Pain 5 to 7 Sodium Chloride 10 ml 05/14/21 01:00 05/14/21 16:50 Sodium Chloride Flush 0.9% 10 Ml Syringe IVP Not Given 0100,0900,1700 BRADY Tamsulosin HCl 0.4 mg 05/14/21 09:00 05/14/21 08:49 Tamsulosin 0.4 Mg Capsule PO 0.4 mg DAILY BRADY Administration - Lab Result Fish Bone Diagrams: 05/14/21 16:45 05/13/21 21:52 Subjective - Subjective Patient Reports: Other (Patient was resting comfortably in bed. He has not experienced tachycardia since discharge a couple days ago. He reports some blood dripping from surgical site. Denies any other complain.) Objective Vital Signs: Vital Signs - 24 hr 05/13/21 05/13/21 05/13/21 21:02 21:28 22:12 Temperature 38.0 C H 37.4 C Heart Rate 80 76 69 Heart Rate [ Monitoring electrodes] Respiratory 13 17 16 Rate Blood Pressure 156/79 H 162/87 H 157/74 H Blood Pressure [Left Brachial artery] O2 Saturation 96 98 95 05/13/21 05/13/21 05/13/21 22:49 23:18 23:30 Temperature 37.5 C 37.5 C 37.8 C Heart Rate 70 70 Heart Rate [ 76 Monitoring electrodes] Respiratory 14 14 18 Rate Blood Pressure 164/79 H 164/79 H Blood Pressure 150/77 H [Left Brachial artery] O2 Saturation 95 95 98 05/14/21 05/14/21 05/14/21 05:05 08:00 14:38 Temperature 36.9 C 36.8 C 37.1 C Heart Rate Heart Rate [ 68 69 68 Monitoring electrodes] Respiratory 16 14 16 Rate Blood Pressure Blood Pressure 129/68 141/64 H 116/47 L [Left Brachial artery] O2 Saturation 98 96 97 05/14/21 16:00 Temperature 37.2 C Heart Rate Heart Rate [ 71 Monitoring electrodes] Respiratory 18 Rate Blood Pressure Blood Pressure 125/59 L [Left Brachial artery] O2 Saturation 95 Oxygen O2 Source Room air I&O (Last 24 Hrs): Intake and Output Totals x24h 05/12/21 05/13/21 05/14/21 23:59 23:59 23:59 Intake Total 45 1110.000 Output Total 500 Balance 45 610.000 General: Alert, Oriented x3, Cooperative, No acute distress HEENT: Atraumatic, EOMI Neck: Supple, No JVD Neuro: Alert, Non Focal, Oriented Times 3 Cardiovascular: Regular rate, Normal S1, Normal S2 Respiratory: Chest non-tender, No respiratory distress, Breath sounds nml Abdomen: Normal bowel sounds, Soft, Other (mild bleeding from suprapubic surgical line/site) Genitourinary: Other (scrotal edema) Extremities: No clubbing, No cyanosis, No tenderness/swelling, Other (+1 edema bilaterally) Skin: No rashes - Results Results: Laboratory Results WBC 5.6 x10^3/uL (4.8-10.8) 05/14/21 05:48 RBC 2.97 10^6/uL (4.70-6.10) L 05/14/21 05:48 Hgb 9.1 g/dL (14.0-18.0) L 05/14/21 16:45 Hct 27.9 % (42.0-52.0) L 05/14/21 16:45 MCV 91.2 fL (80.0-94.0) 05/14/21 05:48 MCH 30.0 pg (27.0-31.0) 05/14/21 05:48 MCHC 32.8 g/dL (32.0-36.0) 05/14/21 05:48 RDW 13.4 % (12.0-15.0) 05/14/21 05:48 Plt Count 173 10^3/uL (130-450) 05/14/21 05:48 MPV 10.4 fL (7.4-11.4) 05/14/21 05:48 Neut # (Auto) 4.6 10^3/uL (1.5-6.6) 05/14/21 05:48 Lymph # (Auto) 0.5 10^3/uL (1.5-3.5) L 05/14/21 05:48 [place] # (Auto) 0.3 10^3/uL (0.0-1.0) 05/14/21 05:48 Eos # (Auto) 0.1 10^3/uL (0.0-0.7) 05/14/21 05:48 Baso # (Auto) 0.0 10^3/uL (0.0-0.1) 05/14/21 05:48 Absolute Nucleated RBC 0.00 x10^3/uL 05/14/21 05:48 Nucleated RBC % 0.0 /100WBC 05/14/21 05:48 PT 13.9 secs (9.9-12.6) H 05/13/21 21:52 INR 1.3 (0.8-1.2) H 05/13/21 21:52 APTT 34.3 secs (24.9-33.3) H 05/13/21 21:52 Sodium 138 mmol/L (135-145) 05/13/21 21:52 Potassium 4.3 mmol/L (3.5-5.0) 05/13/21 21:52 Chloride 101 mmol/L (101-111) 05/13/21 21:52 Carbon Dioxide 26 mmol/L (21-32) 05/13/21 21:52 Anion Gap 11.0 (6-13) 05/13/21 21:52 BUN 9 mg/dL (6-20) 05/13/21 21:52 Creatinine 0.7 mg/dL (0.6-1.2) 05/13/21 21:52 Estimated GFR (MDRD) 111 (>89) 05/13/21 21:52 Glucose 148 mg/dL (70-100) H 05/13/21 21:52 Lactic Acid 1.0 mmol/L (0.5-2.2) 05/13/21 21:58 Calcium 8.7 mg/dL (8.5-10.3) 05/13/21 21:52 Total Bilirubin 0.6 mg/dL (0.2-1.0) 05/13/21 21:52 AST 23 IU/L (10-42) 05/13/21 21:52 ALT 25 IU/L (10-60) 05/13/21 21:52 Alkaline Phosphatase 59 IU/L (42-121) 05/13/21 21:52 Total Protein 6.5 g/dL (6.7-8.2) L 05/13/21 21:52 Albumin 3.5 g/dL (3.2-5.5) 05/13/21 21:52 Globulin 3.0 g/dL (2.1-4.2) 05/13/21 21:52 Albumin/Globulin Ratio 1.2 (1.0-2.2) 05/13/21 21:52 Lipase 29 U/L (22-51) 05/13/21 21:52 TSH 1.39 uIU/mL (0.34-5.60) 05/14/21 05:48 Free T4 1.23 ng/dL (0.58-1.64) 05/14/21 05:48 Urine Color YELLOW 05/13/21 21:35 Urine Clarity CLEAR (CLEAR) 05/13/21 21:35 Urine pH 7.5 PH (5.0-7.5) 05/13/21 21:35 Ur Specific [place] 1.015 (1.002-1.030) 05/13/21 21:35 Urine Protein NEGATIVE mg/dL (NEGATIVE) 05/13/21 21:35 Urine Glucose (UA) NEGATIVE mg/dL (NEGATIVE) 05/13/21 21:35 Urine Ketones NEGATIVE mg/dL (NEGATIVE) 05/13/21 21:35 Urine Occult Blood NEGATIVE (NEGATIVE) 05/13/21 21:35 Urine Nitrite NEGATIVE (NEGATIVE) 05/13/21 21:35 Urine Bilirubin NEGATIVE (NEGATIVE) 05/13/21 21:35 Urine Urobilinogen 0.2 (NORMAL) E.U./dL (NORMAL) 05/13/21 21:35 Ur Leukocyte Esterase NEGATIVE (NEGATIVE) 05/13/21 21:35 Ur Microscopic Review NOT INDICATED 05/13/21 21:35 Urine Culture Comments NOT INDICATED 05/13/21 21:35 Nasal Adenovirus (PCR) NOT DETECTED 05/13/21 22:58 Nasal B. parapertussis DNA (PCR) NOT DETECTED 05/13/21 22:58 Nasal Coronavir 229E PCR NOT DETECTED 05/13/21 22:58 Nasal Coronavir HKU1 PCR NOT DETECTED 05/13/21 22:58 Nasal Coronavir NL63 PCR NOT DETECTED 05/13/21 22:58 Nasal Coronavir OC43 PCR NOT DETECTED 05/13/21 22:58 Nasal Enterovir/Rhinovir PCR NOT DETECTED 05/13/21 22:58 Nasal Influenza B PCR NOT DETECTED 05/13/21 22:58 Nasal Influenza A PCR NOT DETECTED 05/13/21 22:58 Nasal Parainfluen 1 PCR NOT DETECTED 05/13/21 22:58 Nasal Parainfluen 2 PCR NOT DETECTED 05/13/21 22:58 Nasal Parainfluen 3 PCR NOT DETECTED 05/13/21 22:58 Nasal Parainfluen 4 PCR NOT DETECTED 05/13/21 22:58 Nasal RSV (PCR) NOT DETECTED 05/13/21 22:58 Nasal B.pertussis DNA PCR NOT DETECTED 05/13/21 22:58 Nasal C.pneumoniae (PCR) NOT DETECTED 05/13/21 22:58 Imtiaz Human Metapneumo PCR NOT DETECTED 05/13/21 22:58 Nasal M.pneumoniae (PCR) NOT DETECTED 05/13/21 22:58 Nasal SARS-CoV-2 (PCR) NOT DETECTED 05/13/21 22:58 ABX Reporting Has patient been on IV antibiotics over the past 48 hours?: Yes
--- NOTE | 2021-05-14 19:23 | PROVIDER PROGRESS NOTE ---
Subjective - General Admit Date: 05/14/21 Procedure Date: 05/05/21 Post Op Days: 10 Procedure Performed: Laparoscopic low anterior resection - Review of Systems Wound/Incisions: positive: Drainage (Old blood draining intermittently- culture done and pending), Other (Minimal bloody drainage from midportion of Pfannenstiel incision.No significant cellulitis.No fluctuance on palpation. Remainder of abdominal exam is unremarkable with no tenderness.) General: negative: Fever, Chills Gastrointestinal: positive: Other (Poor appetite). negative: Abdominal pain All Other Systems: positive: Reviewed and negative Objective - Patient Data Reviewed Vital Signs: Yes Vital Signs: Vital Signs x48h Temp Pulse Pulse Resp BP Pulse Ox 05/14/21 17:00 37.2 C 71 18 97 05/14/21 16:00 37.2 C 71 18 125/59 L 95 05/14/21 14:38 37.1 C 68 16 116/47 L 97 Weight: Weight 05/12/21 05/13/21 05/14/21 23:59 23:59 23:59 Weight (kg) 91.8 kg Intake & Output: Intake and Output Totals x24h 05/12/21 05/13/21 05/14/21 23:59 23:59 23:59 Intake Total 45 1110.000 Output Total 500 Balance 45 610.000 - Lab Results Lab Results: 05/15/21 04:35 05/15/21 04:35 Other Lab Results: Lab Results x24hrs 05/14/21 05/14/21 05/14/21 Range/Units 16:45 05:48 05:48 WBC 5.6 (4.8-10.8) x10^3/uL RBC 2.97 L (4.70-6.10) 10^6/uL Hgb 9.1 L 8.9 L (14.0-18.0) g/dL Hct 27.9 L 27.1 L (42.0-52.0) % MCV 91.2 (80.0-94.0) fL MCH 30.0 (27.0-31.0) pg MCHC 32.8 (32.0-36.0) g/dL RDW 13.4 (12.0-15.0) % Plt Count 173 (130-450) 10^3/uL MPV 10.4 (7.4-11.4) fL Neut # (Auto) 4.6 (1.5-6.6) 10^3/uL Lymph # (Auto) 0.5 L (1.5-3.5) 10^3/uL [place] # (Auto) 0.3 (0.0-1.0) 10^3/uL Eos # (Auto) 0.1 (0.0-0.7) 10^3/uL Baso # (Auto) 0.0 (0.0-0.1) 10^3/uL Absolute Nucleated RBC 0.00 x10^3/uL Nucleated RBC % 0.0 /100WBC PT (9.9-12.6) secs INR (0.8-1.2) APTT (24.9-33.3) secs Sodium (135-145) mmol/L Potassium (3.5-5.0) mmol/L Chloride (101-111) mmol/L Carbon Dioxide (21-32) mmol/L Anion Gap (6-13) BUN (6-20) mg/dL Creatinine (0.6-1.2) mg/dL Estimated GFR (MDRD) (>89) Glucose (70-100) mg/dL Lactic Acid (0.5-2.2) mmol/L Calcium (8.5-10.3) mg/dL Total Bilirubin (0.2-1.0) mg/dL AST (10-42) IU/L ALT (10-60) IU/L Alkaline Phosphatase (42-121) IU/L Total Protein (6.7-8.2) g/dL Albumin (3.2-5.5) g/dL Globulin (2.1-4.2) g/dL Albumin/Globulin Ratio (1.0-2.2) Lipase (22-51) U/L TSH 1.39 (0.34-5.60) uIU/mL Free T4 1.23 (0.58-1.64) ng/dL Urine Color Urine Clarity (CLEAR) Urine pH (5.0-7.5) PH Ur Specific [place] (1.002-1.030) Urine Protein (NEGATIVE) mg/dL Urine Glucose (UA) (NEGATIVE) mg/dL Urine Ketones (NEGATIVE) mg/dL Urine Occult Blood (NEGATIVE) Urine Nitrite (NEGATIVE) Urine Bilirubin (NEGATIVE) Urine Urobilinogen (NORMAL) E.U./dL Ur Leukocyte Esterase (NEGATIVE) Ur Microscopic Review Urine Culture Comments Nasal Adenovirus (PCR) Nasal B. parapertussis DNA (PCR) Nasal Coronavir 229E PCR Nasal Coronavir HKU1 PCR Nasal Coronavir NL63 PCR Nasal Coronavir OC43 PCR Nasal Enterovir/Rhinovir PCR Nasal Influenza B PCR Nasal Influenza A PCR Nasal Parainfluen 1 PCR Nasal Parainfluen 2 PCR Nasal Parainfluen 3 PCR Nasal Parainfluen 4 PCR Nasal RSV (PCR) Nasal B.pertussis DNA PCR Nasal C.pneumoniae (PCR) Imtiaz Human Metapneumo PCR Nasal M.pneumoniae (PCR) Nasal SARS-CoV-2 (PCR) 05/13/21 05/13/21 05/13/21 Range/Units 22:58 21:58 21:52 WBC (4.8-10.8) x10^3/uL RBC (4.70-6.10) 10^6/uL Hgb (14.0-18.0) g/dL Hct (42.0-52.0) % MCV (80.0-94.0) fL MCH (27.0-31.0) pg MCHC (32.0-36.0) g/dL RDW (12.0-15.0) % Plt Count (130-450) 10^3/uL MPV (7.4-11.4) fL Neut # (Auto) (1.5-6.6) 10^3/uL Lymph # (Auto) (1.5-3.5) 10^3/uL [place] # (Auto) (0.0-1.0) 10^3/uL Eos # (Auto) (0.0-0.7) 10^3/uL Baso # (Auto) (0.0-0.1) 10^3/uL Absolute Nucleated RBC x10^3/uL Nucleated RBC % /100WBC PT 13.9 H (9.9-12.6) secs INR 1.3 H (0.8-1.2) APTT 34.3 H (24.9-33.3) secs Sodium (135-145) mmol/L Potassium (3.5-5.0) mmol/L Chloride (101-111) mmol/L Carbon Dioxide (21-32) mmol/L Anion Gap (6-13) BUN (6-20) mg/dL Creatinine (0.6-1.2) mg/dL Estimated GFR (MDRD) (>89) Glucose (70-100) mg/dL Lactic Acid 1.0 (0.5-2.2) mmol/L Calcium (8.5-10.3) mg/dL Total Bilirubin (0.2-1.0) mg/dL AST (10-42) IU/L ALT (10-60) IU/L Alkaline Phosphatase (42-121) IU/L Total Protein (6.7-8.2) g/dL Albumin (3.2-5.5) g/dL Globulin (2.1-4.2) g/dL Albumin/Globulin Ratio (1.0-2.2) Lipase (22-51) U/L TSH (0.34-5.60) uIU/mL Free T4 (0.58-1.64) ng/dL Urine Color Urine Clarity (CLEAR) Urine pH (5.0-7.5) PH Ur Specific [place] (1.002-1.030) Urine Protein (NEGATIVE) mg/dL Urine Glucose (UA) (NEGATIVE) mg/dL Urine Ketones (NEGATIVE) mg/dL Urine Occult Blood (NEGATIVE) Urine Nitrite (NEGATIVE) Urine Bilirubin (NEGATIVE) Urine Urobilinogen (NORMAL) E.U./dL Ur Leukocyte Esterase (NEGATIVE) Ur Microscopic Review Urine Culture Comments Nasal Adenovirus (PCR) NOT DETECTED Nasal B. parapertussis DNA (PCR) NOT DETECTED Nasal Coronavir 229E PCR NOT DETECTED Nasal Coronavir HKU1 PCR NOT DETECTED Nasal Coronavir NL63 PCR NOT DETECTED Nasal Coronavir OC43 PCR NOT DETECTED Nasal Enterovir/Rhinovir PCR NOT DETECTED Nasal Influenza B PCR NOT DETECTED Nasal Influenza A PCR NOT DETECTED Nasal Parainfluen 1 PCR NOT DETECTED Nasal Parainfluen 2 PCR NOT DETECTED Nasal Parainfluen 3 PCR NOT DETECTED Nasal Parainfluen 4 PCR NOT DETECTED Nasal RSV (PCR) NOT DETECTED Nasal B.pertussis DNA PCR NOT DETECTED Nasal C.pneumoniae (PCR) NOT DETECTED Imtiaz Human Metapneumo PCR NOT DETECTED Nasal M.pneumoniae (PCR) NOT DETECTED Nasal SARS-CoV-2 (PCR) NOT DETECTED 05/13/21 05/13/21 05/13/21 Range/Units 21:52 21:52 21:35 WBC 7.8 (4.8-10.8) x10^3/uL RBC 3.45 L (4.70-6.10) 10^6/uL Hgb 10.2 L (14.0-18.0) g/dL Hct 32.2 L (42.0-52.0) % MCV 93.3 (80.0-94.0) fL MCH 29.6 (27.0-31.0) pg MCHC 31.7 L (32.0-36.0) g/dL RDW 13.3 (12.0-15.0) % Plt Count 194 (130-450) 10^3/uL MPV 10.3 (7.4-11.4) fL Neut # (Auto) 6.7 H (1.5-6.6) 10^3/uL Lymph # (Auto) 0.5 L (1.5-3.5) 10^3/uL [place] # (Auto) 0.4 (0.0-1.0) 10^3/uL Eos # (Auto) 0.1 (0.0-0.7) 10^3/uL Baso # (Auto) 0.0 (0.0-0.1) 10^3/uL Absolute Nucleated RBC 0.00 x10^3/uL Nucleated RBC % 0.0 /100WBC PT (9.9-12.6) secs INR (0.8-1.2) APTT (24.9-33.3) secs Sodium 138 (135-145) mmol/L Potassium 4.3 (3.5-5.0) mmol/L Chloride 101 (101-111) mmol/L Carbon Dioxide 26 (21-32) mmol/L Anion Gap 11.0 (6-13) BUN 9 (6-20) mg/dL Creatinine 0.7 (0.6-1.2) mg/dL Estimated GFR (MDRD) 111 (>89) Glucose 148 H (70-100) mg/dL Lactic Acid (0.5-2.2) mmol/L Calcium 8.7 (8.5-10.3) mg/dL Total Bilirubin 0.6 (0.2-1.0) mg/dL AST 23 (10-42) IU/L ALT 25 (10-60) IU/L Alkaline Phosphatase 59 (42-121) IU/L Total Protein 6.5 L (6.7-8.2) g/dL Albumin 3.5 (3.2-5.5) g/dL Globulin 3.0 (2.1-4.2) g/dL Albumin/Globulin Ratio 1.2 (1.0-2.2) Lipase 29 (22-51) U/L TSH (0.34-5.60) uIU/mL Free T4 (0.58-1.64) ng/dL Urine Color YELLOW Urine Clarity CLEAR (CLEAR) Urine pH 7.5 (5.0-7.5) PH Ur Specific [place] 1.015 (1.002-1.030) Urine Protein NEGATIVE (NEGATIVE) mg/dL Urine Glucose (UA) NEGATIVE (NEGATIVE) mg/dL Urine Ketones NEGATIVE (NEGATIVE) mg/dL Urine Occult Blood NEGATIVE (NEGATIVE) Urine Nitrite NEGATIVE (NEGATIVE) Urine Bilirubin NEGATIVE (NEGATIVE) Urine Urobilinogen 0.2 (NORMAL) (NORMAL) E.U./dL Ur Leukocyte Esterase NEGATIVE (NEGATIVE) Ur Microscopic Review NOT INDICATED Urine Culture Comments NOT INDICATED Nasal Adenovirus (PCR) Nasal B. parapertussis DNA (PCR) Nasal Coronavir 229E PCR Nasal Coronavir HKU1 PCR Nasal Coronavir NL63 PCR Nasal Coronavir OC43 PCR Nasal Enterovir/Rhinovir PCR Nasal Influenza B PCR Nasal Influenza A PCR Nasal Parainfluen 1 PCR Nasal Parainfluen 2 PCR Nasal Parainfluen 3 PCR Nasal Parainfluen 4 PCR Nasal RSV (PCR) Nasal B.pertussis DNA PCR Nasal C.pneumoniae (PCR) Imtiaz Human Metapneumo PCR Nasal M.pneumoniae (PCR) Nasal SARS-CoV-2 (PCR) - Imaging Results Radiology Imaging: positive: Other (CT abdomen showed air/gas bubbles, likely secondary to spontaneous drainage of hematoma from Pfannenstiel incision) - Current Medications Current Medications: Current Medications Generic Name Dose Route Start Last Admin Trade Name Freq PRN Reason Stop Dose Admin Acetaminophen 650 mg 05/13/21 22:38 05/14/21 08:49 Acetaminophen 325 Mg Tablet PO 650 mg Q4HR PRN Administration Pain or Fever > 38C (100.4F) Diltiazem HCl 120 mg 05/14/21 09:00 05/14/21 08:49 Diltiazem Cd 120 Mg Capsule PO 120 mg DAILY BRADY Administration Furosemide 20 mg 05/14/21 06:00 05/14/21 06:47 Furosemide 20 Mg/2 Ml Vial IVP 05/15/21 23:00 20 mg 0600 BRADY Administration Piperacillin Sod/Tazobactam 100 mls @ 25 mls/hr 05/14/21 05:04 05/14/21 14:30 Sod 3.375 gm/ Sodium Chloride IV 25 mls/hr Q8H BRADY Administration Oxycodone HCl 5 mg 05/13/21 22:38 05/14/21 08:49 Oxycodone 5 Mg Tablet PO 5 mg Q4HR PRN Administration Pain 5 to 7 Sodium Chloride 10 ml 05/14/21 01:00 05/14/21 16:50 Sodium Chloride Flush 0.9% 10 Ml Syringe IVP Not Given 0100,0900,1700 BRADY Tamsulosin HCl 0.4 mg 05/14/21 09:00 05/14/21 08:49 Tamsulosin 0.4 Mg Capsule PO 0.4 mg DAILY BRADY Administration - Physical Exam Wound/Incisions: positive: Drainage (Bloody drainage intermittent, nit bright red, suspect old hematoma from rectus muscles draining), Erythema improving Abdomen: positive: Non-tender (Except at Pfannenstiel incision, not painful but feels "bruised" according to patient), No distention Impression/Plan - Problem List Problem List: Called to see patient this afternoon after he had additional drainage from Pfannenstiel incision. Wound checked and intact with no current drainage. Cult ure of earlier drainage taken by nurse Jesse. Patient comfortable, no dizziness or lightheadedness. Ate well at [facility] but not hungry for dinner. Repeat H/H this afternoon slightly better than this morning. Plan to continue Zosyn, observation of wound for additional bloody drainage. Repeat CBC in AM. Signing out to Dr Arteaga in AM.
[2021-05-14] MEDS ORDERED: ACETAMINOPHEN 325 MG TABLET PO ONE ×2 (19:36→23:22)
[2021-05-14] MEDS ORDERED: oxyCODONE 5 MG TABLET ONE (19:37)
[2021-05-14] MEDS ORDERED: SODIUM CHLORIDE 0.9% 100ML 100 ML IV ONE (22:55)
[2021-05-14] MEDS ORDERED: SODIUM CHLORIDE FLUSH 0.9% 10 ML SYRINGE IVP ONE (22:56)
[2021-05-15] MEDS: oxyCODONE 5 MG TABLET PO PRN ×4 (00:29→19:57)
[2021-05-15] MEDS ORDERED: oxyCODONE 5 MG TABLET ONE ×2 (00:30→05:56)
[2021-05-15] MEDS: ACETAMINOPHEN 325 MG TABLET PO PRN ×4 (03:32→19:57)
[2021-05-15] MEDS ORDERED: ACETAMINOPHEN 325 MG TABLET PO ONE (03:34)
[2021-05-15 05:04] LABS: BASOPHILS % (AUTO) 0.4 %; EOSINOPHILS # (AUTO) 0.2 10^3/uL (0.0-0.7); EOSINOPHILS % (AUTO) 3.6 %; HCT - HEMATOCRIT 28.1 % (42.0-52.0); HGB - HEMOGLOBIN 8.8 g/dL (14.0-18.0); LYMPHOCYTES # (AUTO) 0.8 10^3/uL (1.5-3.5); LYMPHOCYTES % (AUTO) 17.6 %; MEAN CORPUSCULAR HEMOGLOBIN 29.2 pg (27.0-31.0); MEAN CORPUSCULAR HGB CONC 31.3 g/dL (32.0-36.0); MEAN CORPUSCULAR VOLUME 93.4 fL (80.0-94.0); MEAN PLATELET VOLUME 10.1 fL (7.4-11.4); MONOCYTES # (AUTO) 0.3 10^3/uL (0.0-1.0); MONOCYTES % (AUTO) 6.6 %; NEUTROPHILS # (AUTO) 3.3 10^3/uL (1.5-6.6); NEUTROPHILS % (AUTO) 70.7 %; PLT - PLATELET COUNT 198 10^3/uL (130-450); RED BLOOD COUNT 3.01 10^6/uL (4.70-6.10); RED CELL DISTRIBUTION WIDTH 13.5 % (12.0-15.0); WHITE BLOOD COUNT 4.7 x10^3/uL (4.8-10.8)
[2021-05-15 05:14] LABS: CALCIUM 8.1 mg/dL (8.5-10.3); CREATININE 0.8 mg/dL (0.6-1.2); POTASSIUM 3.6 mmol/L (3.5-5.0)
[2021-05-15] MEDS ORDERED: SODIUM CHLORIDE 0.9% 100ML 100 ML IV ONE (05:57)
[2021-05-15] MEDS ORDERED: FUROSEMIDE 20 MG/2 ML VIAL IVP ONE (06:16)
[2021-05-15] MEDS: PIPERACILLIN/TAZOBACTAM 3.375 GM in SODIUM CHLORIDE 0.9% MINIBAG 100 ML IV SCH ×3 (06:22→20:30)
[2021-05-15] MEDS: FUROSEMIDE 20 MG/2 ML VIAL IVP SCH (06:22)
--- NOTE | 2021-05-15 08:21 | PROVIDER PROGRESS NOTE ---
Assessment/Plan - Current Meds Current Meds: Current Medications Generic Name Dose Route Start Last Admin Trade Name Freq PRN Reason Stop Dose Admin Acetaminophen 650 mg 05/13/21 22:38 05/15/21 08:08 Acetaminophen 325 Mg Tablet PO 650 mg Q4HR PRN Administration Pain or Fever > 38C (100.4F) Diltiazem HCl 120 mg 05/14/21 09:00 05/14/21 08:49 Diltiazem Cd 120 Mg Capsule PO 120 mg DAILY BRADY Administration Furosemide 20 mg 05/14/21 06:00 05/15/21 06:22 Furosemide 20 Mg/2 Ml Vial IVP 05/15/21 23:00 20 mg 0600 BRADY Administration Piperacillin Sod/Tazobactam 100 mls @ 25 mls/hr 05/14/21 05:04 05/15/21 06:22 Sod 3.375 gm/ Sodium Chloride IV 25 mls/hr Q8H BRADY Administration Oxycodone HCl 5 mg 05/13/21 22:38 05/15/21 06:22 Oxycodone 5 Mg Tablet PO 5 mg Q4HR PRN Administration Pain 5 to 7 Sodium Chloride 10 ml 05/14/21 01:00 05/14/21 23:09 Sodium Chloride Flush 0.9% 10 Ml Syringe IVP 10 ml 0100,0900,1700 BRADY Administration Tamsulosin HCl 0.4 mg 05/14/21 09:00 05/14/21 08:49 Tamsulosin 0.4 Mg Capsule PO 0.4 mg DAILY BRADY Administration - Lab Result Lab results reviewed: Yes Fish Bone Diagrams: 05/15/21 04:35 05/15/21 04:35 - Other Other Results/Comments: The patient's pathology returned from his surgery with a [id number] staging. Blood cultures on admission have been no growth. Wound culture has also shown no growth. - Additional Planning Condition/Complexity: Stable My Orders: My Active Orders 05/14/21 09:00 Tamsulosin [Flomax] 0.4 mg PO DAILY 05/14/21 Lunch DIET [Regular Diet] [DIET] 05/14/21 16:30 CUL,WOUND (AEROBIC) [RM] Routine Plan Discussed with:: Patient, Other (Discussed care with Dr. Arteaga, who will assume his care today.) Additional Planning Notes: Hospital day #3 for Mr. Lopez who is 10 days status post laparoscopic assisted low anterior resection by Dr. Faustin. He was admitted the evening of May 13 when he had spontaneous drainage of a large amount of old blood from his Pfannenstiel incision. Since admission, he has remained afebrile and his white blood cell count is normal. He has been active, walking in the hallways and usually after activity he has a small amount of old bloody drainage from the midportion of the Pfannenstiel incision. He has been tolerating a diet and passing flatus but has had no bowel movement for 3 days. He was been on IV Zosyn since admission. He is on diltiazem because of sinus arrhythmia during his last admission. He was also placed on Lasix by the hospital service for anasarca. Subjective - Subjective Patient Reports: Resting Comfortably (Lower abdomen is sore particularly on the left side near the Pfannenstiel incision.) Objective Vital Signs: Vital Signs - 24 hr 05/14/21 05/14/21 05/14/21 14:38 16:00 17:00 Temperature 37.1 C 37.2 C 37.2 C Heart Rate 71 Heart Rate [ 68 71 Monitoring electrodes] Respiratory 16 18 18 Rate Blood Pressure 116/47 L 125/59 L [Left Brachial artery] O2 Saturation 97 95 97 05/14/21 05/14/21 05/15/21 21:01 23:50 05:05 Temperature 36.9 C 36.9 C 36.5 C Heart Rate Heart Rate [ 70 62 64 Monitoring electrodes] Respiratory 18 16 18 Rate Blood Pressure 130/62 121/62 111/57 L [Left Brachial artery] O2 Saturation 94 95 97 05/15/21 07:52 Temperature 36.7 C Heart Rate Heart Rate [ 62 Monitoring electrodes] Respiratory 14 Rate Blood Pressure 114/67 [Left Brachial artery] O2 Saturation 96 Oxygen O2 Source Room air I&O (Last 24 Hrs): Intake and Output Totals x24h 05/13/21 05/14/21 05/15/21 23:59 23:59 23:59 Intake Total 45 2010.000 100 Output Total 1075 1000 Balance 45 935.000 -900 General: Alert, Oriented x3, Cooperative Abdomen: Other (Bruising in the lower abdomen with induration around the Pfannenstiel incision, especially on the left side. No fluctuance. No crepitus. No purulent drainage. There is some old bloody drainage that comes from the midportion of the Pfannenstiel incision.) - Results Results: Laboratory Results WBC 4.7 x10^3/uL (4.8-10.8) L 05/15/21 04:35 RBC 3.01 10^6/uL (4.70-6.10) L 05/15/21 04:35 Hgb 8.8 g/dL (14.0-18.0) L 05/15/21 04:35 Hct 28.1 % (42.0-52.0) L 05/15/21 04:35 MCV 93.4 fL (80.0-94.0) 05/15/21 04:35 MCH 29.2 pg (27.0-31.0) 05/15/21 04:35 MCHC 31.3 g/dL (32.0-36.0) L 05/15/21 04:35 RDW 13.5 % (12.0-15.0) 05/15/21 04:35 Plt Count 198 10^3/uL (130-450) 05/15/21 04:35 MPV 10.1 fL (7.4-11.4) 05/15/21 04:35 Neut # (Auto) 3.3 10^3/uL (1.5-6.6) 05/15/21 04:35 Lymph # (Auto) 0.8 10^3/uL (1.5-3.5) L 05/15/21 04:35 [place] # (Auto) 0.3 10^3/uL (0.0-1.0) 05/15/21 04:35 Eos # (Auto) 0.2 10^3/uL (0.0-0.7) 05/15/21 04:35 Baso # (Auto) 0.0 10^3/uL (0.0-0.1) 05/15/21 04:35 Absolute Nucleated RBC 0.00 x10^3/uL 05/15/21 04:35 Nucleated RBC % 0.0 /100WBC 05/15/21 04:35 PT 13.9 secs (9.9-12.6) H 05/13/21 21:52 INR 1.3 (0.8-1.2) H 05/13/21 21:52 APTT 34.3 secs (24.9-33.3) H 05/13/21 21:52 Sodium 137 mmol/L (135-145) 05/15/21 04:35 Potassium 3.6 mmol/L (3.5-5.0) 05/15/21 04:35 Chloride 102 mmol/L (101-111) 05/15/21 04:35 Carbon Dioxide 27 mmol/L (21-32) 05/15/21 04:35 Anion Gap 8.0 (6-13) 05/15/21 04:35 BUN 9 mg/dL (6-20) 05/15/21 04:35 Creatinine 0.8 mg/dL (0.6-1.2) 05/15/21 04:35 Estimated GFR (MDRD) 95 (>89) 05/15/21 04:35 Glucose 111 mg/dL (70-100) H 05/15/21 04:35 Lactic Acid 1.0 mmol/L (0.5-2.2) 05/13/21 21:58 Calcium 8.1 mg/dL (8.5-10.3) L 05/15/21 04:35 Total Bilirubin 0.6 mg/dL (0.2-1.0) 05/13/21 21:52 AST 23 IU/L (10-42) 05/13/21 21:52 ALT 25 IU/L (10-60) 05/13/21 21:52 Alkaline Phosphatase 59 IU/L (42-121) 05/13/21 21:52 Total Protein 6.5 g/dL (6.7-8.2) L 05/13/21 21:52 Albumin 3.5 g/dL (3.2-5.5) 05/13/21 21:52 Globulin 3.0 g/dL (2.1-4.2) 05/13/21 21:52 Albumin/Globulin Ratio 1.2 (1.0-2.2) 05/13/21 21:52 Lipase 29 U/L (22-51) 05/13/21 21:52 TSH 1.39 uIU/mL (0.34-5.60) 05/14/21 05:48 Free T4 1.23 ng/dL (0.58-1.64) 05/14/21 05:48 Urine Color YELLOW 05/13/21 21:35 Urine Clarity CLEAR (CLEAR) 05/13/21 21:35 Urine pH 7.5 PH (5.0-7.5) 05/13/21 21:35 Ur Specific [place] 1.015 (1.002-1.030) 05/13/21 21:35 Urine Protein NEGATIVE mg/dL (NEGATIVE) 05/13/21 21:35 Urine Glucose (UA) NEGATIVE mg/dL (NEGATIVE) 05/13/21 21:35 Urine Ketones NEGATIVE mg/dL (NEGATIVE) 05/13/21 21:35 Urine Occult Blood NEGATIVE (NEGATIVE) 05/13/21 21:35 Urine Nitrite NEGATIVE (NEGATIVE) 05/13/21 21:35 Urine Bilirubin NEGATIVE (NEGATIVE) 05/13/21 21:35 Urine Urobilinogen 0.2 (NORMAL) E.U./dL (NORMAL) 05/13/21 21:35 Ur Leukocyte Esterase NEGATIVE (NEGATIVE) 05/13/21 21:35 Ur Microscopic Review NOT INDICATED 05/13/21 21:35 Urine Culture Comments NOT INDICATED 05/13/21 21:35 Nasal Adenovirus (PCR) NOT DETECTED 05/13/21 22:58 Nasal B. parapertussis DNA (PCR) NOT DETECTED 05/13/21 22:58 Nasal Coronavir 229E PCR NOT DETECTED 05/13/21 22:58 Nasal Coronavir HKU1 PCR NOT DETECTED 05/13/21 22:58 Nasal Coronavir NL63 PCR NOT DETECTED 05/13/21 22:58 Nasal Coronavir OC43 PCR NOT DETECTED 05/13/21 22:58 Nasal Enterovir/Rhinovir PCR NOT DETECTED 05/13/21 22:58 Nasal Influenza B PCR NOT DETECTED 05/13/21 22:58 Nasal Influenza A PCR NOT DETECTED 05/13/21 22:58 Nasal Parainfluen 1 PCR NOT DETECTED 05/13/21 22:58 Nasal Parainfluen 2 PCR NOT DETECTED 05/13/21 22:58 Nasal Parainfluen 3 PCR NOT DETECTED 05/13/21 22:58 Nasal Parainfluen 4 PCR NOT DETECTED 05/13/21 22:58 Nasal RSV (PCR) NOT DETECTED 05/13/21 22:58 Nasal B.pertussis DNA PCR NOT DETECTED 05/13/21 22:58 Nasal C.pneumoniae (PCR) NOT DETECTED 05/13/21 22:58 Imtiaz Human Metapneumo PCR NOT DETECTED 05/13/21 22:58 Nasal M.pneumoniae (PCR) NOT DETECTED 05/13/21 22:58 Nasal SARS-CoV-2 (PCR) NOT DETECTED 05/13/21 22:58 ABX Reporting Has patient been on IV antibiotics over the past 48 hours?: No
[2021-05-15] MEDS: TAMSULOSIN 0.4 MG CAPSULE PO SCH (09:10)
[2021-05-15] MEDS: diltiaZEM CD 120 MG CAPSULE PO SCH (09:10)
[2021-05-15] MEDS: SODIUM CHLORIDE FLUSH 0.9% 10 ML SYRINGE IVP SCH ×2 (09:13→16:05)
--- NOTE | 2021-05-15 17:26 | PROVIDER PROGRESS NOTE ---
Subjective - General Admit Date: 05/14/21 Procedure Date: 05/05/21 Post Op Days: 10 Procedure Performed: Laparoscopic low anterior resection - Review of Systems Wound/Incisions: positive: Drainage (Bloody drainage intermittent, nit bright red, suspect old hematoma from rectus muscles draining), Erythema improving General: negative: Fever, Chills Gastrointestinal: positive: Other (Poor appetite). negative: Abdominal pain All Other Systems: positive: Reviewed and negative Objective - Patient Data Vital Signs: Vital Signs x48h Temp Pulse Resp BP Pulse Ox 05/15/21 16:00 36.7 C 60 17 118/59 L 93 05/15/21 14:03 36.9 C 65 14 122/68 96 Weight: Weight 05/13/21 05/14/21 05/15/21 23:59 23:59 23:59 Weight (kg) 91.8 kg Intake & Output: Intake and Output Totals x24h 05/13/21 05/14/21 05/15/21 23:59 23:59 23:59 Intake Total 45 2010.000 680 Output Total 1075 1750 Balance 45 935.000 -1070 - Lab Results Lab Results: 05/15/21 04:35 05/15/21 04:35 Other Lab Results: Lab Results x24hrs 05/15/21 05/15/21 Range/Units 04:35 04:35 WBC 4.7 L (4.8-10.8) x10^3/uL RBC 3.01 L (4.70-6.10) 10^6/uL Hgb 8.8 L (14.0-18.0) g/dL Hct 28.1 L (42.0-52.0) % MCV 93.4 (80.0-94.0) fL MCH 29.2 (27.0-31.0) pg MCHC 31.3 L (32.0-36.0) g/dL RDW 13.5 (12.0-15.0) % Plt Count 198 (130-450) 10^3/uL MPV 10.1 (7.4-11.4) fL Neut # (Auto) 3.3 (1.5-6.6) 10^3/uL Lymph # (Auto) 0.8 L (1.5-3.5) 10^3/uL [place] # (Auto) 0.3 (0.0-1.0) 10^3/uL Eos # (Auto) 0.2 (0.0-0.7) 10^3/uL Baso # (Auto) 0.0 (0.0-0.1) 10^3/uL Absolute Nucleated RBC 0.00 x10^3/uL Nucleated RBC % 0.0 /100WBC Sodium 137 (135-145) mmol/L Potassium 3.6 (3.5-5.0) mmol/L Chloride 102 (101-111) mmol/L Carbon Dioxide 27 (21-32) mmol/L Anion Gap 8.0 (6-13) BUN 9 (6-20) mg/dL Creatinine 0.8 (0.6-1.2) mg/dL Estimated GFR (MDRD) 95 (>89) Glucose 111 H (70-100) mg/dL Calcium 8.1 L (8.5-10.3) mg/dL - Current Medications Current Medications: Current Medications Generic Name Dose Route Start Last Admin Trade Name [facility] PRN Reason Stop Dose Admin Acetaminophen 650 mg 05/13/21 22:38 05/15/21 14:01 Acetaminophen 325 Mg Tablet PO 650 mg Q4HR PRN Administration Pain or Fever > 38C (100.4F) Diltiazem HCl 120 mg 05/14/21 09:00 05/15/21 09:10 Diltiazem Cd 120 Mg Capsule PO 120 mg DAILY BRADY Administration Furosemide 20 mg 05/14/21 06:00 05/15/21 06:22 Furosemide 20 Mg/2 Ml Vial IVP 05/15/21 23:00 20 mg 0600 BRADY Administration Piperacillin Sod/Tazobactam 100 mls @ 25 mls/hr 05/14/21 05:04 05/15/21 13:20 Sod 3.375 gm/ Sodium Chloride IV 25 mls/hr Q8H BRADY Administration Oxycodone HCl 5 mg 05/13/21 22:38 05/15/21 10:59 Oxycodone 5 Mg Tablet PO 5 mg Q4HR PRN Administration Pain 5 to 7 Sodium Chloride 10 ml 05/14/21 01:00 05/15/21 16:05 Sodium Chloride Flush 0.9% 10 Ml Syringe IVP Not Given 0100,0900,1700 BRADY Tamsulosin HCl 0.4 mg 05/14/21 09:00 05/15/21 09:10 Tamsulosin 0.4 Mg Capsule PO 0.4 mg DAILY BRADY Administration - Physical Exam Comments/Other: [place] induration of the lower abdominal wall. Patient reports improved since admission. All surgical clips removed and wound explored with sterile cotton tipped applicator. Central opening in the incision approximiately 2 cm in size. Large internal pocket with some remaining clot. The clot was evacuated and the wound irrigated with betadine and saline solution. Packed with 1 inch Nu Gauze soaked in weak Betadine solution. Tolerated well. Dry dressing applied. ABX Reporting Has patient been on IV antibiotics over the past 48 hours?: Yes Impression/Plan - Problem List Problem List: Infected wound hematoma. Continue antibiotic tonight. Will repack the wound in the AM and plan to discharge if he continues to do well.
[2021-05-16] MEDS: ACETAMINOPHEN 325 MG TABLET PO PRN ×3 (00:12→08:42)
[2021-05-16] MEDS: oxyCODONE 5 MG TABLET PO PRN ×4 (00:12→21:38)
[2021-05-16] MEDS: SODIUM CHLORIDE FLUSH 0.9% 10 ML SYRINGE IVP SCH ×3 (00:13→16:58)
[2021-05-16] MEDS: PIPERACILLIN/TAZOBACTAM 3.375 GM in SODIUM CHLORIDE 0.9% MINIBAG 100 ML IV SCH (04:37)
[2021-05-16 06:08] LABS: BASOPHILS % (AUTO) 0.5 %; EOSINOPHILS # (AUTO) 0.2 10^3/uL (0.0-0.7); EOSINOPHILS % (AUTO) 4.3 %; HCT - HEMATOCRIT 29.7 % (42.0-52.0); HGB - HEMOGLOBIN 9.7 g/dL (14.0-18.0); LYMPHOCYTES # (AUTO) 0.7 10^3/uL (1.5-3.5); LYMPHOCYTES % (AUTO) 16.4 %; MEAN CORPUSCULAR HEMOGLOBIN 29.8 pg (27.0-31.0); MEAN CORPUSCULAR HGB CONC 32.7 g/dL (32.0-36.0); MEAN CORPUSCULAR VOLUME 91.1 fL (80.0-94.0); MEAN PLATELET VOLUME 9.4 fL (7.4-11.4); MONOCYTES # (AUTO) 0.3 10^3/uL (0.0-1.0); MONOCYTES % (AUTO) 6.4 %; NEUTROPHILS # (AUTO) 3.2 10^3/uL (1.5-6.6); NEUTROPHILS % (AUTO) 71.5 %; PLT - PLATELET COUNT 213 10^3/uL (130-450); RED BLOOD COUNT 3.26 10^6/uL (4.70-6.10); RED CELL DISTRIBUTION WIDTH 13.1 % (12.0-15.0); WHITE BLOOD COUNT 4.4 x10^3/uL (4.8-10.8)
[2021-05-16 06:20] LABS: CALCIUM 8.6 mg/dL (8.5-10.3); CREATININE 0.8 mg/dL (0.6-1.2); POTASSIUM 3.6 mmol/L (3.5-5.0)
--- NOTE | 2021-05-16 08:37 | Discharge Plan ---
Discharge Plan Problem Reviewed?: Yes Disposition: Home, Self Care Condition: Good Prescriptions: oxyCODONE [Roxicodone] 5 mg PO Q4HR PRN #20 tablet PRN Reason: Pain 5 to 7 diltiaZEM CD [Cardizem Cd] 120 mg PO DAILY 30 Days #30 cap levoFLOXacin [Levaquin] 500 mg PO QD #7 tablet Diet: Regular Activity Restrictions: 10 pound lifting limit Shower Restrictions: Yes (sponge bathe only) Driving Restrictions: Yes No Smoking: If you smoke, Please STOP! Call for help. Follow-up with: Edy Guerrero MD [Primary Care Provider] -
[2021-05-16] MEDS: diltiaZEM CD 120 MG CAPSULE PO SCH (08:41)
[2021-05-16] MEDS: TAMSULOSIN 0.4 MG CAPSULE PO SCH (08:42)
[2021-05-16] MEDS: MEROPENEM 1 GM in SODIUM CHLORIDE 0.9% MINIBAG 100 ML IV SCH ×2 (11:11→19:14)
--- NOTE | 2021-05-16 13:17 | PROVIDER PROGRESS NOTE ---
Subjective - General Admit Date: 05/14/21 Procedure Date: 05/05/21 Post Op Days: 11 Procedure Performed: Laparoscopic low anterior resection - Review of Systems Wound/Incisions: positive: Drainage (Bloody drainage intermittent, nit bright red, suspect old hematoma from rectus muscles draining), Erythema improving General: negative: Fever, Chills Gastrointestinal: positive: Other (Poor appetite). negative: Abdominal pain All Other Systems: positive: Reviewed and negative - Other Other Information/Narrative: Had plan to discharge the patient this morning. Unfortunately culture grew re sistant E. coli sensitive only to Carbapenem's. Will hold discharge for today. Have changed to meropenem here in the hospital and will begin arrangements for IV infusion therapy at home. Unfortunately, there are no oral alternatives for therapy. Objective - Patient Data Reviewed Vital Signs: Yes Vital Signs: Vital Signs x48h Temp Pulse Resp BP Pulse Ox 05/16/21 08:00 36.6 C 68 18 131/65 H 97 Intake & Output: Intake and Output Totals x24h 05/14/21 05/15/21 05/16/21 23:59 23:59 23:59 Intake Total 2010.000 1320 900 Output Total 1075 2175 751 Balance 935.000 -855 149 - Lab Results Lab Results: 05/16/21 05:59 05/16/21 05:59 Other Lab Results: Lab Results x24hrs 05/16/21 05/16/21 Range/Units 05:59 05:59 WBC 4.4 L (4.8-10.8) x10^3/uL RBC 3.26 L (4.70-6.10) 10^6/uL Hgb 9.7 L (14.0-18.0) g/dL Hct 29.7 L (42.0-52.0) % MCV 91.1 (80.0-94.0) fL MCH 29.8 (27.0-31.0) pg MCHC 32.7 (32.0-36.0) g/dL RDW 13.1 (12.0-15.0) % Plt Count 213 (130-450) 10^3/uL MPV 9.4 (7.4-11.4) fL Neut # (Auto) 3.2 (1.5-6.6) 10^3/uL Lymph # (Auto) 0.7 L (1.5-3.5) 10^3/uL [place] # (Auto) 0.3 (0.0-1.0) 10^3/uL Eos # (Auto) 0.2 (0.0-0.7) 10^3/uL Baso # (Auto) 0.0 (0.0-0.1) 10^3/uL Absolute Nucleated RBC 0.00 x10^3/uL Nucleated RBC % 0.0 /100WBC Sodium 138 (135-145) mmol/L Potassium 3.6 (3.5-5.0) mmol/L Chloride 103 (101-111) mmol/L Carbon Dioxide 25 (21-32) mmol/L Anion Gap 10.0 (6-13) BUN 10 (6-20) mg/dL Creatinine 0.8 (0.6-1.2) mg/dL Estimated GFR (MDRD) 95 (>89) Glucose 114 H (70-100) mg/dL Calcium 8.6 (8.5-10.3) mg/dL - Current Medications Current Medications: Current Medications Generic Name Dose Route Start Last Admin Trade Name Freq PRN Reason Stop Dose Admin Acetaminophen 650 mg 05/13/21 22:38 05/16/21 08:42 Acetaminophen 325 Mg Tablet PO 650 mg Q4HR PRN Administration Pain or Fever > 38C (100.4F) Diltiazem HCl 120 mg 05/14/21 09:00 05/16/21 08:41 Diltiazem Cd 120 Mg Capsule PO 120 mg DAILY BRADY Administration Meropenem 1 gm/ Sodium 100 mls @ 200 mls/hr 05/16/21 11:00 05/16/21 12:00 Chloride IV Infused Q8H BRADY Infusion Oxycodone HCl 5 mg 05/13/21 22:38 05/16/21 06:17 Oxycodone 5 Mg Tablet PO 5 mg Q4HR PRN Administration Pain 5 to 7 Sodium Chloride 10 ml 05/14/21 01:00 05/16/21 08:41 Sodium Chloride Flush 0.9% 10 Ml Syringe IVP 10 ml 0100,0900,1700 BRADY Administration Tamsulosin HCl 0.4 mg 05/14/21 09:00 05/16/21 08:42 Tamsulosin 0.4 Mg Capsule PO 0.4 mg DAILY BRADY Administration - Physical Exam Comments/Other: The appearance of the abdominal wound is slightly improved from yesterday. Still draining old blood but the foul odor has improved. He tolerated packing much better today. Still some old clots when the dressing was removed. He has active bowel sounds. ABX Reporting Has patient been on IV antibiotics over the past 48 hours?: Yes Impression/Plan - Problem List Problem List: 1. We will continue dressing changes with plain Nu Gauze. 2.Discontinue Zosyn and start meropenem. 3.Frequent stools today so we will check C. difficile and start a probiotic. 4.Have discussed with social group worker and utilization management. Will arrange for IV infusion therapy at home. Can use ertapenem as opposed to meropenem so that infusion will be once a day.We will try to get home health for IV management and dressing changes as well. 5.Pain is reasonably well controlled so we will continue current management.
[2021-05-16] MEDS: SACCHAROMYCES BOULARDII 250 MG CAPSULE PO SCH (16:58)
[2021-05-17] MEDS: oxyCODONE 5 MG TABLET PO PRN ×2 (02:32→13:38)
[2021-05-17] MEDS: MEROPENEM 1 GM in SODIUM CHLORIDE 0.9% MINIBAG 100 ML IV SCH ×2 (03:10→11:25)
[2021-05-17] MEDS: SODIUM CHLORIDE FLUSH 0.9% 10 ML SYRINGE IVP SCH ×2 (03:10→08:22)
[2021-05-17 05:40] LABS: BASOPHILS % (AUTO) 0.6 %; EOSINOPHILS # (AUTO) 0.1 10^3/uL (0.0-0.7); EOSINOPHILS % (AUTO) 2.6 %; HCT - HEMATOCRIT 30.7 % (42.0-52.0); LYMPHOCYTES # (AUTO) 0.8 10^3/uL (1.5-3.5); LYMPHOCYTES % (AUTO) 14.4 %; MEAN CORPUSCULAR HEMOGLOBIN 29.8 pg (27.0-31.0); MEAN CORPUSCULAR HGB CONC 32.6 g/dL (32.0-36.0); MEAN CORPUSCULAR VOLUME 91.4 fL (80.0-94.0); MEAN PLATELET VOLUME 9.4 fL (7.4-11.4); MONOCYTES # (AUTO) 0.3 10^3/uL (0.0-1.0); MONOCYTES % (AUTO) 5.2 %; NEUTROPHILS # (AUTO) 4.1 10^3/uL (1.5-6.6); NEUTROPHILS % (AUTO) 76.3 %; PLT - PLATELET COUNT 249 10^3/uL (130-450); RED BLOOD COUNT 3.36 10^6/uL (4.70-6.10); RED CELL DISTRIBUTION WIDTH 13.1 % (12.0-15.0); WHITE BLOOD COUNT 5.4 x10^3/uL (4.8-10.8)
[2021-05-17 06:09] LABS: CALCIUM 8.5 mg/dL (8.5-10.3); CREATININE 0.7 mg/dL (0.6-1.2); POTASSIUM 4.1 mmol/L (3.5-5.0)
[2021-05-17] MEDS: ACETAMINOPHEN 325 MG TABLET PO PRN ×2 (06:55→13:39)
[2021-05-17] MEDS: SACCHAROMYCES BOULARDII 250 MG CAPSULE PO SCH (08:21)
[2021-05-17] MEDS: diltiaZEM CD 120 MG CAPSULE PO SCH (08:21)
[2021-05-17] MEDS: TAMSULOSIN 0.4 MG CAPSULE PO SCH (08:21)
--- NOTE | 2021-05-17 15:05 | CONSULTATION NOTE ---
Consultation Report: consulted by Dr Arteaga for PICC line placement. Informed consent obtained from patient. Double lumen 5Fr PICC line placed in L arm under U/S guidance. Sterile technique maintained. Pt tolerated well, VSS, NAC. Placement verified by CXR.
--- NOTE | 2021-05-17 15:06 | XRAY Report ---
PROCEDURE: Chest for Line Placement INDICATIONS: PICC line placement TECHNIQUE: One view of the chest was acquired. COMPARISON: 05/08/2021 FINDINGS: Surgical changes and devices: Left PICC line with the tip projecting at the upper SVC. Lungs and pleura: No pleural effusions or pneumothorax. Lungs are clear. Mediastinum: Mediastinal contours appear normal. Heart size is normal. Bones and chest wall: No suspicious bony lesions. Overlying soft tissues appear unremarkable. IMPRESSION: Left PICC line with the tip projecting at the upper SVC. Reviewed by: Raul Baez MD on 05/17/2021 3:04 PM PDT Approved by: Raul Baez MD on 05/17/2021 3:04 PM PDT Station ID: [id number]
--- NOTE | 2021-05-17 15:06 | ANESTHESIA PROCEDURE NOTE ---
Anesth Central Line Template - Central Line Central Line Preparation: Consent Obtained, Unable to obtain consent, Time out completed, Ultrasound used, Sterile prep and drape Central line location: Left Brachial Central line type: PICC Double Lumen Central line catheter tip site resides: Superior vena cava (SVC) Central line aftercare: Chlorhexidine disc placed, Secured, Placement confirmed, No pneumothorax, No complications, Bundle checklist complete, Pt tolerated well, Other
--- NOTE | 2021-05-17 15:14 | DISCHARGE SUMMARY ---
Discharge Summary Admit Date: 05/13/21 Discharge Date: 05/17/21 Discharging Provider: Jenni Primary Care Provider: Yolanda Code Status: Attempt Resuscitation Condition at Discharge: Stable Discharge Disposition: Home Health Service - DIAGNOSES Admission Diagnoses: Hematoma and post operative wound infection Discharge Diagnoses with Status of Each Condition: Improved - HPI History of Present Illness: This 71 yo male had a colonoscopy on 05/02 with finding of a low sigmoid colon cancer and was taken to surgery for laparoscopic low anterior resection with removal of the resected bowel through a Pfannenstiel incision. The patient was discharged home 05/10 and had been doing well at home. He has had several bowel movements without bleeding. His only concern was some lower abdominal bloating and swelling of his scrotum with discoloration. This evening he urinated and noted a large amount of "old, liquid blood" draining from the midpoint of his Pfannenstiel incision with foul smell noted. No obvious pus. Patient was brought to the [facility] where a low grade fever was noted. He is not currently on any anticoagulant but believes he was given an anticoagulant during his hospitalization when he had some atrial tachycardia. He has noted no arrhythmia at home and has had no syncope or chest pain. - CONSULTS | PROCEDURES Consultations: None Procedures: Bedside drainage and wound packing - HOSPITAL COURSE Hospital Course: Jones was admitted and started on Zosyn. Surgical clips were removed at the bedside with drainage of a large volume of serosanguinous fluid and clot. Daily would packing with dressing change was started. Cultures revealed ESBL E.coli sensitive only to Carbapenem. Meropenem was started and discharge planes undertaken for both home health and home infusion of Invanz. After 2 doses, significant improvement was noted in the wound in both pain and appearance. He is discharged to his home. He will receive dialy IV Invanz and wound care in my office on Saturday and Saturday of this week. Home Health will assume wound care on Saturday of next week . I will see hiim in the office on Saturday or for a follow up visit to evaluate progress. - ALLERGIES Allergies/Adverse Reactions: Allergies Allergy/AdvReac Type Severity Reaction Status Date / Time morphine AdvReac Unknown Verified 05/13/21 21:13 - MEDICATIONS Home Medications: Ambulatory Orders Medication Instructions Recorded Confirmed Tamsulosin HCl [Flomax] 0.4 mg PO DAILY 05/01/21 05/13/21 Acetaminophen [Tylenol] 650 mg PO Q4HR PRN tablet 05/16/21 Ertapenem Sodium [Invanz] 1 gm IV DAILY #14 ml 05/16/21 diltiaZEM CD [Cardizem Cd] 120 mg PO DAILY 30 Days #30 cap 05/16/21 levoFLOXacin [Levaquin] 500 mg PO QD #7 tablet 05/16/21 oxyCODONE [Roxicodone] 5 mg PO Q4HR PRN #20 tablet 05/16/21 - PHYSICAL EXAM AT DISCHARGE General Appearance: positive: No acute distress, Alert Eyes Bilateral: positive: Normal inspection, PERRL, EOMI ENT: positive: ENT inspection nml Neck: positive: Nml inspection Respiratory: positive: Chest non-tender, No respiratory distress Cardiovascular: positive: Regular rate & rhythm, No murmur Abdomen: positive: Other (Wound is clean and dressed) Back: positive: Nml inspection Skin: positive: Color nml Extremities: positive: Non-tender Neurologic/Psychiatric: positive: Oriented x3, CN's nml (2-12) - LABS Result Diagrams: 05/17/21 05:31 05/17/21 05:31 - QUALITY (Female Hip Fx Only) Was patient sent home on osteoporosis medication?: No - FOLLOW UP Follow Up: Saturday with a nurse visit for dressing change - TIME SPENT Time Spent in Discharge (Minutes): 25
--- NOTE | 2021-05-17 15:17 | CONSULTATION NOTE ---
Consultation Report: ETA: PICC line secured at 50cm and verified by CXR at [facility].
[2021-05-17 15:38] VITALS: BP 149/73
== END 2021-05-17 15:59 | disposition home health service (06) | DRG 920 ==
LOC: EDUNIT# → ED 20:44 → MS2 22:32 → OBSVTOIN 05-14 10:37
PROVIDERS: ADMIT Surgery; ATTEND Surgery
PROC: 02HV33Z Insertion of Infusion Device into Superior Vena Cava, Percutaneous Approach (ICD-10-PCS; principal; 2021-05-17)
DX: M96.841 Postprocedural hematoma of a musculoskeletal structure following other procedure (principal); T81.42XA Infection following a procedure, deep incisional surgical site, initial encounter; Z16.23 Resistance to quinolones and fluoroquinolones; I47.1 Supraventricular tachycardia; C18.7 Malignant neoplasm of sigmoid colon; B96.20 Unspecified Escherichia coli [E. coli] as the cause of diseases classified elsewhere; Y83.6 Removal of other organ (partial) (total) as the cause of abnormal reaction of the patient, or of later complication, without mention of misadventure at the time of the procedure; Y92.234 Operating room of hospital as the place of occurrence of the external cause; I27.20 Pulmonary hypertension, unspecified; R60.0 Localized edema; N50.89 Other specified disorders of the male genital organs; M19.90 Unspecified osteoarthritis, unspecified site; H54.7 Unspecified visual loss; N40.0 Benign prostatic hyperplasia without lower urinary tract symptoms; Z20.822 Contact with and (suspected) exposure to COVID-19; Z79.899 Other long term (current) drug therapy; Z87.442 Personal history of urinary calculi; Z90.49 Acquired absence of other specified parts of digestive tract; Z87.19 Personal history of other diseases of the digestive system
CPT/HCPCS: 0202U; 36415; 71045; 74176; 80048; 80053; 81003; 83605; 83690; 84439; 84443; 85014; 85018; 85025; 85610; 85730; 87040; 87070; 87077; 87181; 87205; 87493; 96365; 96366; 96375; 99283; 99285; A9270; G0378; J2185; 81001; 87086

== ENCOUNTER 2021-09-26 09:21 | Outpatient (CLI) | payer OTHER, BC ==
--- NOTE | 2021-09-26 15:16 | CT Report ---
PROCEDURE: CHEST WO INDICATIONS: PULMONARY NODULE TECHNIQUE: Noncontrast 1mm axial images were acquired from the pulmonary apices to the posterior costophrenic an gles. Axial 5 mm soft tissue kernel reconstructions were performed as well as 8 mm axial MIP and cor onal and sagittal 5 mm reformations. For radiation dose reduction, the following was used: automate d exposure control, adjustment of mA and/or kV according to patient size. COMPARISON: CT pulmonary angiogram, 05/08/2021. FINDINGS: Image quality: Excellent. Lungs and pleura: There is a 1 cm subcutaneous nodule in the left lower lobe (series 4 image 235), u nchanged in size since the last exam. Mild right lower lobe infiltrate or atelectasis. Right middle lobe and lingular scars. No pleural effusions or pneumothorax. Central and peripheral airways are pa tent and normal in caliber. Mediastinum: Heart size is normal. Moderate coronary artery opacification. No pericardial effusion. No mediastinal adenopathy by size criteria. Thoracic aorta and central pulmonary arteries are norm al in size. Esophagus is normal in caliber. No hiatal hernia. Bones and chest wall: No suspicious bony lesions. No vertebral body compression fractures. No axil rajat or supraclavicular adenopathy by size criteria. The thyroid is normal in size and there are no incidental findings. Abdomen: Spleen is mildly enlarged during 15.5 cm in length. Diverticulosis without diverticulitis. IMPRESSION: 1. Stable 1 cm nodule in the left lower lobe. Continued follow-up is recommended. Please see enclosed follow-up recommended. 2. Mild infiltrate or atelectasis in the right lower lobe. 3. Moderate coronary artery calcification. 4. Mild splenomegaly. Fleischner Society criteria for SOLID lung nodule followup. Nodule size (mm)Low-risk patientHigh-risk patient "d4No follow-up neededFollow-up at 12 mo; if no change, no further follow-up >8-0Piudvf-yv CT at 12 mo; if no change, no further follow-up needed.Initial follow-up CT at 6-12 mo, then 18-24 mo if no change. >6-8Initial follow-up CT at 6-12 mo, then 18-24 mo if no change. Initial follow-up CT at 3-6 mo, then 9-12 mo and 24 mo if no change. >8Follow-up CT at 3, 9, 24 mo. Or PET and/or biopsy.Same as for low-risk pts. Reviewed by: Love Monaco MD on 09/26/2021 3:15 PM PST Approved by: Love Monaco MD on 09/26/2021 3:15 PM PST Station ID: [id number]
== END 2021-09-26 09:22 | disposition home or self-care (01) ==
LOC: DI 09:21
PROVIDERS: ATTEND Internal Medicine Hematology & Oncology
DX: C18.7 Malignant neoplasm of sigmoid colon (principal); R91.1 Solitary pulmonary nodule; R91.8 Other nonspecific abnormal finding of lung field; I25.10 Atherosclerotic heart disease of native coronary artery without angina pectoris; R16.1 Splenomegaly, not elsewhere classified

== ENCOUNTER 2022-01-12 07:04 | Outpatient (CLI) | payer OTHER ==
[2022-01-12 12:25] LABS: ALBUMIN 4.3 g/dL (3.2-5.5); ALBUMIN/GLOBULIN RATIO 1.7 (1.0-2.2); ALKALINE PHOSPHATASE 54 IU/L (42-121); ALT ALANINE AMINOTRANSFERASE 14 IU/L (10-60); AST ASPARTATE AMINOTRANSFERASE 18 IU/L (10-42); BILIRUBIN,TOTAL 0.8 mg/dL (0.2-1.0); BUN - BLOOD UREA NITROGEN 19 mg/dL (6-20); CALCIUM 9.1 mg/dL (8.5-10.3); CARBON DIOXIDE - CO2 26 mmol/L (21-32); CHLORIDE 103 mmol/L (101-111); CHOL/HDL RATIO 4.5 (<5.0); CHOLESTEROL 226 mg/dL; CREATININE 0.9 mg/dL (0.6-1.2); GFR - MDRD 83 (>89); GLUCOSE 114 mg/dL (70-100); HDL CHOLESTEROL 50 mg/dL; LDL CHOLESTEROL,CALCULATED 159 mg/dL; LDL/HDL RATIO 3.2 (<3.6); POTASSIUM 3.8 mmol/L (3.5-5.0); SODIUM 138 mmol/L (135-145); TOTAL PROTEIN 6.9 g/dL (6.7-8.2); TRIGLYCERIDES 87 mg/dL; VLDL CHOLESTEROL 17 mg/dL
[2022-01-12 12:37] LABS: THYROID STIMULATING HORMONE 1.91 uIU/mL (0.34-5.60)
== END 2022-01-12 07:05 | disposition home or self-care (01) ==
LOC: LAB.N 07:04
PROVIDERS: ATTEND Internal Medicine Hematology & Oncology
DX: C18.7 Malignant neoplasm of sigmoid colon (principal); E78.5 Hyperlipidemia, unspecified; Z12.5 Encounter for screening for malignant neoplasm of prostate; Z13.29 Encounter for screening for other suspected endocrine disorder
CPT/HCPCS: 36415; 80053; 80061; 83721; 84153; 84443

== ENCOUNTER 2022-12-13 07:53 | Outpatient (CLI) | payer OTHER ==
[2022-12-13] MEDS ORDERED: LIDOCAINE-MPF 1% 5 ML VIAL ONE (08:32)
[2022-12-13 08:41] LABS: PT - PROTHROMBIN TIME 11.6 secs (9.9-12.6)
[2022-12-13] MEDS ORDERED: fentaNYL 100 MCG/2 ML VIAL ONE (08:47)
[2022-12-13] MEDS ORDERED: MIDAZOLAM 2 MG/2 ML VIAL ONE (08:47)
[2022-12-13 08:48] LABS: PARTIAL THROMBOPLASTIN TIME 30.8 secs (24.9-33.3)
[2022-12-13] MEDS ORDERED: LACTATED RINGERS 1,000 ML IV ONE (09:58)
[2022-12-13 11:17] VITALS: BP 144/86
[2022-12-13] MEDS ORDERED: fentaNYL 100 MCG/2 ML VIAL IVP STA (12:42)
[2022-12-13] MEDS ORDERED: MIDAZOLAM 2 MG/2 ML VIAL IVP ONE (12:43)
--- NOTE | 2022-12-13 13:36 | CT Report ---
PROCEDURE: 1. Bone marrow biopsy with aspiration. 2. Moderate sedation. INDICATIONS: COLON CA, PANCYTOPENIA TECHNIQUE: The indications, alternatives, benefits, risks, and possible complications of the procedure were comm unicated to the patient. Informed written consent from the patient was obtained and placed in the art. Continuous EKG and hemodynamic monitoring was started by trained personnel. For radiation dose reduction, the following was used: automated exposure control, adjustment of mA and/or kV according to patient size. The patient was brought to the CT suite and remnant sorter spiral CT imaging was performed with localization g rid. The appropriate site for percutaneous access to the biopsy target was marked, was prepped and d raped sterilely, and was infused with local anaesthesia. Under CT guidance, a core biopsy trocar and needle set was advanced to the biopsy target, and specimen(s) were obtained. The trocar and needle were then removed, and the patient was sent for post-procedure monitoring. COMPARISON: None. FINDINGS: Biopsy site: Right iliac bone Needle: 9 gauge biopsy needle with introducer trocar. Number of passes: 1 Medications: 1% lidocaine for local anaesthesia. IV Fentanyl and Versed for moderate sedation. (see nursing record). Complications: None. IMPRESSION: Successful bone marrow biopsy. Reviewed by: Gary Miranda on 12/13/2022 1:35 PM PST Approved by: Gary Miranda on 12/13/2022 1:35 PM PST Station ID: [id number]
== END 2022-12-13 07:54 | disposition home or self-care (01) ==
LOC: DI 07:53
PROVIDERS: ATTEND Internal Medicine Hematology & Oncology
DX: D61.818 Other pancytopenia (principal); D72.819 Decreased white blood cell count, unspecified; D69.6 Thrombocytopenia, unspecified; C18.7 Malignant neoplasm of sigmoid colon
CPT/HCPCS: 38222; 77012; 85049; 85610; 85730; J7120

== ENCOUNTER 2023-04-30 07:36 | Day surgery (SDC) | payer OTHER ==
[2023-04-30] MEDS ORDERED: LACTATED RINGERS 1,000 ML IV ONE (07:37)
--- NOTE | 2023-04-30 08:05 | ANESTHESIA ---
Pre-Anesthesia VS, & Labs - Diagnosis hx colon ca - Procedure colonoscopy Vital Signs: Temp Pulse Resp BP Pulse Ox O2 Flow Rate 35.9 C L 62 16 138/83 H 98 04/30/23 07:40 04/30/23 07:40 04/30/23 07:40 04/30/23 07:40 04/30/23 07:40 Height: 5 ft 8 in Weight (kg): 90 kg Body Mass Index: 30.2 BMI Classification: Obese - NPO >8 hours - Lab Results Lab results reviewed: Yes Home Medications and Allergies Tamsulosin HCl [Flomax] 0.4 mg PO DAILY 05/01/21 Allergies/Adverse Reactions: Allergies Allergy/AdvReac Type Severity Reaction Status Date / Time morphine AdvReac Unknown Verified 05/13/21 21:13 Anes History & Medical History - Anesthetic History Anesthesia Complications: reports: No previous complications Family history of Anesthesia Complications: Denies Family history of Malignant Hyperthermia: Denies - Medical History Cardiovascular: reports: High cholesterol, Other (hx of arrhythmia) Pulmonary: reports: None Gastrointestinal: reports: Hiatal hernia, Colon polyps, Diverticulitis, Cholelithiasis, Other Urinary: reports: Benign prostate hypertrophy, Kidney stones Neuro: reports: None Musculoskeletal: reports: None Endocrine/Autoimmune: reports: None Blood Disorders: reports: None Skin: reports: None Smoking Status: Never smoker - Surgical History General: reports: Cholecystectomy, Bowel surgery, Gastric surgery, Colonoscopy, EGD, Other Urologic: reports: Ureterolithotomy (stones) Orthopedic: reports: Arthroscopic surgery, Other Dermatologic: reports: Skin cancer surgery Exam General: Alert, Oriented x3, Cooperative Dental: WNL Mouth Openin Fingerbreadth Neck Mobility: Normal Mallampati classification: I Thyromental Distance: 4-6 cm Respiratory: Lungs clear Cardiovascular: Regular rate Plan Anesthesia Type: General, MAC Consent for Procedure(s) Verified and Reviewed: Yes Code Status: Attempt Resuscitation ASA classification: 2-Mild systemic disease Is this case an emergency?: No
[2023-04-30] MEDS ORDERED: LACTATED RINGERS 300 ML IV ONE (08:57)
[2023-04-30 09:22] VITALS: BP 123/81
--- NOTE | 2023-04-30 10:45 | ANESTHESIA POST OP EVALUATION ---
Anesthesia Post Eval - Post Anesthesia Eval Vitals: Last Vital Signs Temp 0 C L 04/30/23 09:18 Pulse 62 04/30/23 09:18 Resp 18 04/30/23 09:18 BP 123/81 H 04/30/23 09:18 Pulse Ox 96 04/30/23 09:18 O2 Flow Rate CV Function Including HR & BP: Stable Pain Control: Satisfactory Nausea & Vomiting: Negative Mental Status: Baseline Respiratory Status: Airway Patent Hydration Status: Satisfactory Anesthesia Complications: None
== END 2023-04-30 07:37 | disposition home or self-care (01) ==
LOC: SDS 07:36
PROVIDERS: ATTEND Surgery
PROC: 0DBM8ZX Excision of Descending Colon, Via Natural or Artificial Opening Endoscopic, Diagnostic (ICD-10-PCS; 2023-04-30)
PROC: 0DBE8ZX Excision of Large Intestine, Via Natural or Artificial Opening Endoscopic, Diagnostic (ICD-10-PCS; principal; 2023-04-30 08:30)
DX: D12.4 Benign neoplasm of descending colon (principal); K57.30 Diverticulosis of large intestine without perforation or abscess without bleeding; Z80.0 Family history of malignant neoplasm of digestive organs; Z85.038 Personal history of other malignant neoplasm of large intestine; E66.9 Obesity, unspecified; Z68.32 Body mass index [BMI] 32.0-32.9, adult
CPT/HCPCS: 45380; 45385; J7120

== ENCOUNTER 2024-05-05 09:49 | Day surgery (SDC) | payer OTHER ==
[~2024-05-05 09:49] MED LIST: PROPOFOL 500 MG/50 ML 500 MG/50 ML VIAL ONE
[2024-05-05] MEDS: LACTATED RINGERS 1,000 ML IV ONE (09:53)
[2024-05-05] MEDS ORDERED: PROPOFOL 500 MG/50 ML 500 MG/50 ML VIAL ONE (11:17)
--- NOTE | 2024-05-05 11:42 | ANESTHESIA ---
Pre-Anesthesia VS, & Labs - Diagnosis history of colon cancer - Procedure colonoscopy Vital Signs: Temp Pulse Resp BP Pulse Ox O2 Flow Rate 36 C L 77 16 129/87 H 95 05/05/24 09:56 05/05/24 09:56 05/05/24 09:56 05/05/24 09:56 05/05/24 09:56 Height: 5 ft 8 in Weight (kg): 85.5 kg Body Mass Index: 28.6 BMI Classification: Overweight - NPO Other (prep last 530) Home Medications and Allergies Home Medications: Ambulatory Orders Ascorbic Acid [Vitamin C] 1,000 mg PO DAILY 04/30/24 Aspirin [Aspirin EC] 81 mg PO DAILY 04/30/24 Cholecalciferol [Vitamin D3] 25 mcg PO DAILY 04/30/24 Vitamin B Complex 1 each PO DAILY 04/30/24 Ascorbic Acid [Vitamin C] 1,000 mg PO DAILY 04/30/24 Aspirin [Aspirin EC] 81 mg PO DAILY 04/30/24 Cholecalciferol [Vitamin D3] 25 mcg PO DAILY 04/30/24 Vitamin B Complex 1 each PO DAILY 04/30/24 Allergies/Adverse Reactions: Allergies Allergy/AdvReac Type Severity Reaction Status Date / Time morphine AdvReac Unknown Verified 05/13/21 21:13 Anes History & Medical History - Anesthetic History Anesthesia Complications: reports: No previous complications - Medical History Cardiovascular: reports: High cholesterol, Arrhythmia, Other Pulmonary: reports: None Gastrointestinal: reports: Hiatal hernia, Colon polyps, Diverticulitis, Cholelithiasis, Other Urinary: reports: Benign prostate hypertrophy, Kidney stones Neuro: reports: None Musculoskeletal: reports: None Endocrine/Autoimmune: reports: None Blood Disorders: reports: None Skin: reports: None Smoking Status: Never smoker - Surgical History General: reports: Cholecystectomy, Bowel surgery, Gastric surgery, Colonoscopy, EGD, Other Urologic: reports: Ureterolithotomy (stones) Orthopedic: reports: Arthroscopic surgery, Other Dermatologic: reports: Skin cancer surgery Exam General: Alert, Oriented x3 Dental: WNL Mouth Opening: Greater than 4 Fingerbreadths Neck Mobility: Normal Mallampati classification: II Thyromental Distance: greater than 6 cm Respiratory: Lungs clear Cardiovascular: Regular rate Plan Anesthesia Type: Total IV Consent for Procedure(s) Verified and Reviewed: Yes Code Status: Attempt Resuscitation ASA classification: 3-Severe systemic disease Is this case an emergency?: No
[2024-05-05] MEDS: LACTATED RINGERS 500 ML IV ONE (12:29)
--- NOTE | 2024-05-05 12:58 | ANESTHESIA POST OP EVALUATION ---
Anesthesia Post Eval - Post Anesthesia Eval Vitals: Last Vital Signs Temp 36.2 C L 05/05/24 12:54 Pulse 52 L 05/05/24 12:54 Resp 16 05/05/24 12:54 BP 106/66 05/05/24 12:54 Pulse Ox 96 05/05/24 12:54 O2 Flow Rate CV Function Including HR & BP: Stable Pain Control: Satisfactory Nausea & Vomiting: Negative Mental Status: Baseline Respiratory Status: Airway Patent Hydration Status: Satisfactory Anesthesia Complications: None
[2024-05-05 13:07] VITALS: BP 117/60; O2SAT 98
== END 2024-05-05 09:50 | disposition home or self-care (01) ==
LOC: SDS 09:49
PROVIDERS: ATTEND Surgery
DX: Z12.11 Encounter for screening for malignant neoplasm of colon (principal); K57.30 Diverticulosis of large intestine without perforation or abscess without bleeding; D69.6 Thrombocytopenia, unspecified; Z85.038 Personal history of other malignant neoplasm of large intestine; Z86.010 Personal history of colon polyps; Z80.0 Family history of malignant neoplasm of digestive organs; Z79.82 Long term (current) use of aspirin; Z98.0 Intestinal bypass and anastomosis status; Z87.19 Personal history of other diseases of the digestive system
CPT/HCPCS: 45378; J7120